=== PATIENT | male | born 1975 | race Caucasian/White ===

== ENCOUNTER 2016-10-14 15:00 | Inpatient (IN) | payer MEDICAID, OTHER ==
[2016-10-14 17:01] LABS: Acetaminophen <10.0 ug/mL; Salicylate <1.0 mg/dL
--- NOTE | 2016-10-14 17:31 | ED ---
General Adult HPI - General Chief complaint: Psychiatric Symptoms Stated complaint: OD & leg cutting/suicidal & homicidal Time Seen by Provider: 10/14/16 15:42 Source: patient, RN notes reviewed, old records reviewed Mode of arrival: ambulatory - History of Present Illness Initial comments: Chief complaint history of present illness a 41-year-old male to complaint of depression. Patient reports he took 610 mg tablets this morning of Valium. He states his plan was to kill himself. Patient is asking for more medication for his discomfort. He has chronic back pain. - Related Data Home Medications Medication Instructions Recorded Confirmed Simvastatin [Zocor] 40 mg PO HS 11/01/14 10/14/16 levETIRAcetam 1,000 mg PO BID 04/12/16 10/14/16 Diazepam 10 mg PO Q12H 07/29/16 10/14/16 Acetaminophen-Codeine 300-30mg 1 tab PO Q6H PRN 10/14/16 10/14/16 [Tylenol #3] Amitriptyline HCl 10 mg PO HS 10/14/16 10/14/16 Asenapine Maleate [Saphris] 10 mg SUBLINGUAL HS 10/14/16 10/14/16 Aspirin [Adult Low Dose Aspirin EC] 81 mg PO DAILY 10/14/16 10/14/16 Divalproex ER [Depakote ER] 1,000 mg PO HS 10/14/16 10/14/16 Methocarbamol [Robaxin] 500 mg PO TID 10/14/16 10/14/16 Mirtazapine 30 mg PO HS 10/14/16 10/14/16 OXcarbazepine [Trileptal] 300 mg PO BID 10/14/16 10/14/16 Previous Rx's Medication Instructions Recorded DULoxetine HCL [Cymbalta] 60 mg PO DAILY #30 capsule. 08/05/16 Allergies Allergy/AdvReac Type Severity Reaction Status Date / Time quetiapine [From Seroquel] AdvReac Unknown Verified 07/30/16 11:07 Review of Systems ROS Statement: Those systems with pertinent positive or pertinent negative responses have been documented in the HPI. Review of systems. The patient otherwise alert and oriented. States she is depressed and suicidal once to kill himself. Denies any headache or chest pain chronic back pain no GI/ problems no neuro deficits. Patient has a history of depression and suicide. Last on the psych floor one month ago. Denying drug abuse or alcohol problems. Past medical problems significant for GERD, hyperlipidemia, seizure disorder and chronic back pain. Surgeries include hernia repair and cervical fusion. And to hernias. Patient family history significant for father had liver cancer. The patient has ALLERGIES to Seroquel. The patient does smoke strongly encouraged to stop denies alcohol use. States he is trying to obtain SSI because of depression and chronic back pain ROS Other: All systems not noted in ROS Statement are negative. Past Medical History Past Medical History: GERD/Reflux, Hyperlipidemia, Seizure Disorder Additional Past Medical History / Comment(s): chronic back pain, herniated disc , kidney stone History of Any Multi-Drug Resistant Organisms: None Reported Past Surgical History: Hernia Repair, Orthopedic Surgery Additional Past Surgical History / Comment(s): cervical fusion ACDF 2009,carpel tunnel, lt knee arthroscopic surgery, polyp removal, hemorrhage surgery hemorrhoid surgery, rectal warts, sinus surgery Past Anesthesia/Blood Transfusion Reactions: No Reported Reaction Past Psychological History: Anxiety, Depression Smoking Status: Current every day smoker Past Alcohol Use History: None Reported Additional Past Alcohol Use History / Comment(s): Patient smokes 2-1/2 packs of cigarettes per day 30 years. He states he also uses marijuana. No other street drug use. He denies any alcohol use. He lives at home with his girlfriend. He has 2 children that are healthy. Past Drug Use History: Marijuana - Past Family History Mother Family Medical History: Hyperlipidemia, Hypertension, Osteoarthritis (OA) Additional Family Medical History / Comment(s): Mom is alive at 70 years of age Father Family Medical History: Cancer, Liver Disease Additional Family Medical History / Comment(s): Dad at age 60 from liver cancer, hepatitis C, cirrhosis. Sister(s) Family Medical History: No Reported History Daughter(s) Family Medical History: No Reported History Son(s) Family Medical History: No Reported History Additional Family Medical History / Comment(s): Patient states he has 4 sisters that are healthy. General Exam - General Exam Comments Initial Comments: General: The patient is awake and alert, anxious and yells out. But calms down while I interviewed. States he is suicidal, depressed. Does not give any specific reason why today and not yesterday. Vital signs show temperature 97.3 pulse 71 respiratory rate 16 pulse ox 90% room air blood pressure 110/74. Eye: Pupils are equal, round and reactive to light, extra-ocular movements are intact ; there is normal conjunctiva bilaterally. No signs of icterus. Ears, nose, mouth and throat: There are moist mucous membranes and no oral lesions. Neck: The neck is supple, there is no tenderness . Cardiovascular: There is a regular rate and rhythm. No murmur, rub or gallop is appreciated. Respiratory: Lungs are clear to auscultation, respirations are non-labored, breath sounds are equal. No wheezes, stridor, rales, or rhonchi. Gastrointestinal: Denies abdominal pain. Denies nausea vomiting or diarrhea. Back: Chronic back pain Musculoskeletal: Full range of motion upper and lower extremities does not complaining of any pain.. Neurological: Not complaining of any neuro deficits. Skin: Denies any skin rashes or skin elements. Psychiatric: History depression, suicidal, took 610 mg tablets of Valium earlier today. Course Vital Signs 10/14/16 10/14/16 15:01 15:50 Temperature 97.3 F L Pulse Rate 87 71 Respiratory 18 16 Rate Blood Pressure 129/75 110/74 O2 Sat by Pulse 100 98 Oximetry Medical Decision Making - Medical Decision Making The patient's Depakene levels therapeutic for seizure but for him as being used for mood stabilizer. Also Tylenol and aspirin negative. The patient's urine triage positive for opiates, tricyclics, benzos and marijuana. The patient will be admitted to 3 W. diagnosis of major depression recurrent suicidal - Lab Data Lab Results 10/14/16 10/14/16 Range/Units 16:42 17:50 Salicylates <1.0 mg/dL Urine Opiates Screen Detected H (NotDetected) Ur Oxycodone Screen Not Detected (NotDetected) Urine Methadone Screen Not Detected (NotDetected) Ur Propoxyphene Screen Not Detected (NotDetected) Acetaminophen <10.0 ug/mL Ur Barbiturates Screen Not Detected (NotDetected) Valproic Acid 63.7 ug/mL U Tricyclic Antidepress Detected H (NotDetected) Ur Phencyclidine Scrn Not Detected (NotDetected) Ur Amphetamines Screen Not Detected (NotDetected) U Methamphetamines Scrn Not Detected (NotDetected) U Benzodiazepines Scrn Detected H (NotDetected) Urine Cocaine Screen Not Detected (NotDetected) U Marijuana (THC) Screen Detected H (NotDetected) Disposition Clinical Impression: Major depression, recurrent, Suicidal ideations Disposition: TRANSFER TO PSYCH HOSP/UNIT
[2016-10-14] MEDS ORDERED: MAGNESIUM HYDROXIDE 2,400 MG/10 ML CUP PO PRN (19:04)
[2016-10-14] MEDS ORDERED: ACETAMINOPHEN TAB 325 MG TAB PO PRN (19:04)
[2016-10-14] MEDS ORDERED: MAG HYDROX/AL HYDROX/SIMETH 30 ML CUP PO PRN (19:04)
[2016-10-14] MEDS ORDERED: ZIPRASIDONE 20 MG VIAL IM PRN (19:04)
[2016-10-14] MEDS: OXcarbazepine 150 MG TAB PO SCH (20:18)
[2016-10-14] MEDS: DIVALPROEX ER 500 MG TAB.ER.24H PO SCH (20:18)
[2016-10-14] MEDS: ATORVASTATIN 20 MG TAB PO SCH (20:19)
[2016-10-14] MEDS: AMITRIPTYLINE HCL 10 MG TAB PO SCH (20:19)
[2016-10-14] MEDS: levETIRAcetam 500 MG TAB PO SCH (20:19)
[2016-10-14] MEDS: METHOCARBAMOL 500 MG TAB PO SCH (20:19)
[2016-10-14] MEDS ORDERED: ASENAPINE 5 MG TAB SUBLINGUAL SCH (21:00)
[2016-10-14] MEDS ORDERED: MIRTAZAPINE 15 MG TAB PO SCH (21:00)
[2016-10-15] MEDS: ASPIRIN 81 MG CHEW PO SCH (08:47)
[2016-10-15] MEDS: DULoxetine HCL 60 MG CAPSULE.DR PO SCH (08:47)
[2016-10-15] MEDS: levETIRAcetam 500 MG TAB PO SCH ×2 (08:47→20:45)
[2016-10-15] MEDS: OXcarbazepine 150 MG TAB PO SCH ×2 (08:47→20:45)
[2016-10-15] MEDS: METHOCARBAMOL 500 MG TAB PO SCH ×3 (08:47→20:46)
[2016-10-15 09:29] LABS: Basophils % (A) 1 %; CH 32.6; CHCM 33.8; Eosinophils # (A) 0.4 k/uL (0-0.7); Eosinophils % (A) 8 %; HCT 52.1 % (39.0-53.0); HDW 2.42; HGB 17.3 gm/dL (13.0-17.5); Luc # (Auto) 0.09; Luc % (Auto) 2; Lymphocytes # (A) 1.7 k/uL (1.0-4.8); Lymphocytes % (A) 39 %; MCH 32.1 pg (25.0-35.0); MCHC 33.2 g/dL (31.0-37.0); MCV 96.6 fL (80.0-100.0); Mean Platelet Volume 7.9; Monocytes # (A) 0.2 k/uL (0-1.0); Monocytes % (A) 5 %; Neutrophils % (A) 46 %; RDW 12.4 % (11.5-15.5); WBC 4.5 k/uL (3.8-10.6); WBC (Perox) 4.41
[2016-10-15 09:37] LABS: ALT 43 U/L (21-72); AST 19 U/L (17-59); Alkaline Phosphatase 77 U/L (38-126); Anion Gap 9 mmol/L; Blood Urea Nitrogen 13 mg/dL (9-20); Calcium 9.3 mg/dL (8.4-10.2); Carbon Dioxide 31 mmol/L (22-30); Chloride 106 mmol/L (98-107); Glucose 122 mg/dL (74-99); Non-African American GFR(MDRD) >60 (>60 ml/min/1.73 sqM); Potassium 4.5 mmol/L (3.5-5.1); Sodium 146 mmol/L (137-145); Total Bilirubin 0.4 mg/dL (0.2-1.3); Total Protein 6.3 g/dL (6.3-8.2)
[2016-10-15] MEDS ORDERED: Acetaminophen-Codeine 300-30mg TAB PO PRN (10:20)
--- NOTE | 2016-10-15 11:52 | P.CONS ---
History of Present Illness - Reason for Consult Consult date: 10/15/16 Medical management - History of Present Illness This is a 41-year-old gentleman. He is a patient of Dr. Cassie Evans with a past medical history for gastroesophageal reflux disease, hyperlipidemia, chronic back pain with herniated disc, anxiety and depression. Patient follows with [facility]. Patient states that he has had suicidal thoughts and told his son who brought him into [facility] emergency center for treatment. He does state his psychiatric medications were recently changed. He is complaining of chronic back pain and need for Tylenol No. 4. Patient presented to [facility] emergency center with the above complaints. Urine drug screen was positive for opiates, tricyclic antidepressants, benzodiazepines and marijuana Patient was admitted to the mental health unit under the care of Dr. Ware. Review of Systems All systems: negative Constitutional: Reports chronic pain, Denies chills, Denies fever Eyes: denies blurred vision, denies pain Ears, nose, mouth and throat: Denies headache, Denies sore throat Cardiovascular: Denies chest pain, Denies shortness of breath Respiratory: Denies cough Gastrointestinal: Denies abdominal pain, Denies diarrhea, Denies nausea, Denies vomiting Musculoskeletal: Denies myalgias Integumentary: Denies pruritus, Denies rash Neurological: Denies numbness, Denies weakness Psychiatric: Reports depression, Reports hopelessness, Reports suicidal ideation , Denies anxiety Endocrine: Denies fatigue, Denies weight change Past Medical History Past Medical History: GERD/Reflux, Hyperlipidemia, Seizure Disorder Additional Past Medical History / Comment(s): chronic back pain, herniated disc , kidney stone History of Any Multi-Drug Resistant Organisms: None Reported Past Surgical History: Hernia Repair, Orthopedic Surgery Additional Past Surgical History / Comment(s): cervical fusion ACDF 2010,carpel tunnel, lt knee arthroscopic surgery, polyp removal, hemorrhage surgery hemorrhoid surgery, rectal warts, sinus surgery Past Anesthesia/Blood Transfusion Reactions: No Reported Reaction Past Psychological History: Anxiety, Depression Smoking Status: Never smoker Past Alcohol Use History: None Reported Additional Past Alcohol Use History / Comment(s): Patient smokes 2-1/2 packs of cigarettes per day 30 years. He states he also uses marijuana. No other street drug use. He denies any alcohol use. He lives at home with his girlfriend. He has 2 children that are healthy. Past Drug Use History: Marijuana - Past Family History Mother Family Medical History: Hyperlipidemia, Hypertension, Osteoarthritis (OA) Additional Family Medical History / Comment(s): Mom is alive at 70 years of age Father Family Medical History: Cancer, Liver Disease Additional Family Medical History / Comment(s): Dad at age 60 from liver cancer, hepatitis C, cirrhosis. Sister(s) Family Medical History: No Reported History Daughter(s) Family Medical History: No Reported History Son(s) Family Medical History: No Reported History Additional Family Medical History / Comment(s): Patient states he has 4 sisters that are healthy. Medications and Allergies Home Medications Medication Instructions Recorded Confirmed Type Simvastatin [Zocor] 40 mg PO HS 11/01/14 10/14/16 History levETIRAcetam 1,000 mg PO BID 04/12/16 10/14/16 History Diazepam 10 mg PO Q12H 07/29/16 10/14/16 History Acetaminophen-Codeine 300-30mg 1 tab PO Q6H PRN 10/14/16 10/14/16 History [Tylenol #3] Amitriptyline HCl 10 mg PO HS 10/14/16 10/14/16 History Asenapine Maleate [Saphris] 10 mg SUBLINGUAL HS 10/14/16 10/14/16 History Aspirin [Adult Low Dose Aspirin EC] 81 mg PO DAILY 10/14/16 10/14/16 History Divalproex ER [Depakote ER] 1,000 mg PO HS 10/14/16 10/14/16 History Methocarbamol [Robaxin] 500 mg PO TID 10/14/16 10/14/16 History Mirtazapine 30 mg PO HS 10/14/16 10/14/16 History OXcarbazepine [Trileptal] 300 mg PO BID 10/14/16 10/14/16 History Allergies Allergy/AdvReac Type Severity Reaction Status Date / Time quetiapine [From Seroquel] AdvReac Unknown Verified 07/30/16 11:07 Physical Exam Vitals: Vital Signs Temp Pulse Pulse Resp BP BP Pulse Ox 10/15/16 06:48 97.6 F 75 16 105/53 10/14/16 19:11 97.5 F L 84 17 124/76 99 Gen: This is a 41-year-old gentleman. He appears to be in no acute distress. He is cooperative for evaluation. HEENT: Head is atraumatic, normocephalic. Pupils equal, round. Sclerae is anicteric. NECK: Supple. No JVD. No lymphadenopathy. No thyromegaly. LUNGS: Clear to auscultation. No wheezes or rhonchi. No intercostal retractions. HEART: Regular rate and rhythm. No murmur. ABDOMEN: Soft. Bowel sounds are present. No masses. No tenderness. EXTREMITIES: No pedal edema. No calf tenderness. NEUROLOGICAL: Patient is awake, alert and oriented x3. Cranial nerves 2 through 12 are grossly intact. Results CBC & Chem 7: 10/15/16 09:10 10/15/16 09:10 Labs: Abnormal Lab Results - Last 24 Hours (Table) 10/15/16 Range/Units 09:10 Sodium 146 H (137-145) mmol/L Carbon Dioxide 31 H (22-30) mmol/L Glucose 122 H (74-99) mg/dL Assessment and Plan Plan: 1. Depression and anxiety with suicidal thoughts. Patient is been admitted to the mental health unit. Continue current plan of care. 2. History gastroesophageal reflux disease. Omeprazole 20 mg twice daily. 3. Hyperlipidemia. Continue Zocor 40 mg at bedtime. 4. History of chronic back pain. Continue Tylenol No. 3 every 6 hours if okay with psychiatry. 5. Tobacco use and dependence. Continue nicotine patch 21 mg daily. 6. History of marijuana use. Continue as in #1. Impression and plan of care have been directed as dictated by the signing physician. Karla Childs nurse practitioner acting as scribe for signing physician. Time with Patient: Greater than 30
[2016-10-15 12:49] VITALS: BMI 26.2
[2016-10-15] MEDS: NICOTINE 14MG/24HR PATCH TRANSDERM SCH (13:39)
[2016-10-15] MEDS: HYDROcodone/APAP 5-325MG 1 EACH TAB PO PRN (17:13)
[2016-10-15] MEDS: clonazePAM 0.5 MG TAB PO PRN (18:31)
--- NOTE | 2016-10-15 18:41 | P.HP ---
Psychiatric H&P - . H&P Date: 10/15/16 History & Physical: Allergies Allergy/AdvReac Type Severity Reaction Status Date / Time quetiapine [From Seroquel] AdvReac Unknown Verified 07/30/16 11:07 Vital Signs Temp 97.3 F L 10/15/16 12:29 Pulse 79 10/15/16 12:29 Resp 16 10/15/16 12:29 BP 117/76 10/15/16 12:29 Pulse Ox 99 10/14/16 19:11 Intake & Output 10/14/16 10/15/16 10/15/16 18:59 06:59 18:59 Weight 78.4 kg Laboratory Last Values WBC 4.5 k/uL (3.8-10.6) 10/15/16 09:10 RBC 5.40 m/uL (4.30-5.90) 10/15/16 09:10 Hgb 17.3 gm/dL (13.0-17.5) 10/15/16 09:10 Hct 52.1 % (39.0-53.0) 10/15/16 09:10 MCV 96.6 fL (80.0-100.0) 10/15/16 09:10 MCH 32.1 pg (25.0-35.0) 10/15/16 09:10 MCHC 33.2 g/dL (31.0-37.0) 10/15/16 09:10 RDW 12.4 % (11.5-15.5) 10/15/16 09:10 Plt Count 167 k/uL (150-450) 10/15/16 09:10 Neutrophils % 46 % 10/15/16 09:10 Lymphocytes % 39 % 10/15/16 09:10 Monocytes % 5 % 10/15/16 09:10 Eosinophils % 8 % 10/15/16 09:10 Basophils % 1 % 10/15/16 09:10 Neutrophils # 2.0 k/uL (1.3-7.7) 10/15/16 09:10 Lymphocytes # 1.7 k/uL (1.0-4.8) 10/15/16 09:10 Monocytes # 0.2 k/uL (0-1.0) 10/15/16 09:10 Eosinophils # 0.4 k/uL (0-0.7) 10/15/16 09:10 Basophils # 0.0 k/uL (0-0.2) 10/15/16 09:10 Sodium 146 mmol/L (137-145) H 10/15/16 09:10 Potassium 4.5 mmol/L (3.5-5.1) 10/15/16 09:10 Chloride 106 mmol/L (98-107) 10/15/16 09:10 Carbon Dioxide 31 mmol/L (22-30) H 10/15/16 09:10 Anion Gap 9 mmol/L 10/15/16 09:10 BUN 13 mg/dL (9-20) 10/15/16 09:10 Creatinine 1.10 mg/dL (0.66-1.25) 10/15/16 09:10 Est GFR (MDRD) Af Amer >60 (>60 ml/min/1.73 sqM) 10/15/16 09:10 Est GFR (MDRD) Non-Af >60 (>60 ml/min/1.73 sqM) 10/15/16 09:10 Glucose 122 mg/dL (74-99) H 10/15/16 09:10 Calcium 9.3 mg/dL (8.4-10.2) 10/15/16 09:10 Total Bilirubin 0.4 mg/dL (0.2-1.3) 10/15/16 09:10 AST 19 U/L (17-59) 10/15/16 09:10 ALT 43 U/L (21-72) 10/15/16 09:10 Alkaline Phosphatase 77 U/L (38-126) 10/15/16 09:10 Total Protein 6.3 g/dL (6.3-8.2) 10/15/16 09:10 Albumin 3.9 g/dL (3.5-5.0) 10/15/16 09:10 TSH 1.590 mIU/L (0.465-4.680) 10/15/16 09:10 Salicylates <1.0 mg/dL 10/14/16 16:42 Urine Opiates Screen Detected (NotDetected) H 10/14/16 17:50 Ur Oxycodone Screen Not Detected (NotDetected) 10/14/16 17:50 Urine Methadone Screen Not Detected (NotDetected) 10/14/16 17:50 Ur Propoxyphene Screen Not Detected (NotDetected) 10/14/16 17:50 Acetaminophen <10.0 ug/mL 10/14/16 16:42 Ur Barbiturates Screen Not Detected (NotDetected) 10/14/16 17:50 Valproic Acid 52.7 ug/mL 10/15/16 09:10 U Tricyclic Antidepress Detected (NotDetected) H 10/14/16 17:50 Ur Phencyclidine Scrn Not Detected (NotDetected) 10/14/16 17:50 Ur Amphetamines Screen Not Detected (NotDetected) 10/14/16 17:50 U Methamphetamines Scrn Not Detected (NotDetected) 10/14/16 17:50 U Benzodiazepines Scrn Detected (NotDetected) H 10/14/16 17:50 Urine Cocaine Screen Not Detected (NotDetected) 10/14/16 17:50 U Marijuana (THC) Screen Detected (NotDetected) H 10/14/16 17:50 10/15/16 18:30 IDENTIFYING DATA: A 41-year-old single male patient HPI: Patient admitted to the mental health unit [facility] with recent concerns of depression and overdose of medication. Patient reports that he had not been sleeping well. took 6 Valium all at once yesterday was not a suicide attempt but he just hadn't been sleeping. He denies any oversedation from the Valium today he seems to deny any significant depression recently and denies any recent thoughts of suicide. He does state that with the lack of sleep he started having some visual hallucinations like seeing shadows. PAST PSYCHIATRIC HISTORY: Is in active treatment at [facility], sees Rachel at therapist and sees a psychiatrist through [facility]. He has most recently been on Cymbalta 60 mg daily Depakote ER thousand monitor bedtime, Saphris she says is not working, he states that he is no longer on Remeron or Seroquel. He says the Seroquel was discontinued after he had a TIA related to they wanted to minimize any sedating medication, then later he was changed to Saphris. He is being prescribed Valium by his primary care doctor for anxiety on muscle relaxation. He has been on Klonopin in the past which worked better for the anxiety. He has no history of abusing the Klonopin. Says he been diagnosed with major depressive disorder and anxiety disorder. He does not seem to relay having had any significant side effects on the Seroquel. he reports that Seroquel is listed as an ALLERGY because he had a seizure on it, he was not on his antiepileptic medications and was not even aware that he had epilepsy at the time. PMH: Cervical fusion in 2009. History of seizure disorder. History of TIA. ALLERGIES: Quetiapine MEDICATIONS: Tylenol when necessary, [place] when necessary, Maalox when necessary , Elavil, aspirin, Lipitor, Depakote ER, Cymbalta, Keppra, milk of magnesia when necessary, Biaxin, Habitrol, Trileptal, Protonix when necessary, Geodon when necessary CHEMICAL DEPENDENCY HISTORY: Marijuana occasionally FAMILY PSYCHIATRIC HISTORY: Denies FAMILY CHEMICAL DEPENDENCY HISTORY: None known at this time SOCIAL HISTORY: He currently lives with his son, stepdaughter, ex-girlfriend who he is still friends with. No current work, he has applied for disability. MENTAL STATUS EXAM: He is alert and cooperative with the interview. His speech is fluent, not rapid or pressured. Thought processes organized. He denies any current thoughts of harm to self or others. He denies any current hallucinations. He describes his mood as "pretty good." Does not show any agitation. Cognitively appears to be grossly intact. Insight is adequate, judgment shows evidence of recent impairment. STRENGTHS/WEAKNESSES: Strengths-seeking treatment, weaknesses-coping skills INTELLECTUAL FUNCTIONING: average IMPRESSIONS: AXIS I : Major depressive disorder, recurrent ,unspecified anxiety disorder AXIS II: Deferred AXIS III: cervical fusion 2010, TIA, history of seizure disorder AXIS IV: medical stressors AXIS V: 30 PLAN: patient is admitted to inpatient psychiatric unit [facility]. He will be participate in group and activity therapies. He will be placed on SP 15 minute precautions. Baseline laboratory workup done the patient and medical consultation will be ordered. We'll discontinue Saphris as he reports no benefit with and we will trial Zyprexa 2.5 motives at bedtime to see if this can help augment regarding mood as well as helping him with his difficulty with sleep. We'll maintain Cymbalta, Depakote ER as current we will trial Klonopin instead of Valium in terms of as needed for any significant anxiety. We'll continue to cover this patient for Dr. Ware through the weekend we'll any family supports. Estimated length of stay is 3-5 days. Prognosis is guarded.
[2016-10-15] MEDS: DIVALPROEX ER 500 MG TAB.ER.24H PO SCH (20:40)
[2016-10-15] MEDS: ATORVASTATIN 20 MG TAB PO SCH (20:46)
[2016-10-15] MEDS: AMITRIPTYLINE HCL 10 MG TAB PO SCH (20:46)
[2016-10-15] MEDS ORDERED: QUEtiapine 100 MG TAB PO SCH (21:00)
[2016-10-15] MEDS ORDERED: OLANZapine 2.5 MG TAB PO SCH (21:00)
[2016-10-16] MEDS: ASPIRIN 81 MG CHEW PO SCH (08:51)
[2016-10-16] MEDS: levETIRAcetam 500 MG TAB PO SCH ×2 (08:52→20:06)
[2016-10-16] MEDS: OXcarbazepine 150 MG TAB PO SCH ×2 (08:52→20:07)
[2016-10-16] MEDS: DULoxetine HCL 60 MG CAPSULE.DR PO SCH (08:52)
[2016-10-16] MEDS: METHOCARBAMOL 500 MG TAB PO SCH ×3 (08:52→20:05)
[2016-10-16] MEDS: PANTOPRAZOLE 40 MG TABLET PO PRN (08:53)
[2016-10-16] MEDS: NICOTINE 14MG/24HR PATCH TRANSDERM SCH (08:53)
[2016-10-16] MEDS: HYDROcodone/APAP 5-325MG 1 EACH TAB PO PRN ×2 (08:55→16:37)
[2016-10-16] MEDS: clonazePAM 0.5 MG TAB PO PRN ×2 (08:55→18:41)
--- NOTE | 2016-10-16 17:40 | P.PN ---
Progress Note - Text Interval history: Patient is seen in cross coverage today for Dr. Ware. He reports that he slept about 6 hours last night, relays that his sleep was broken. He does not voice any side effects with Zyprexa which has been initiated. He does state that the Klonopin gives him some benefit, inquires regarding increase. He is eating well. Mental status exam: He is alert and cooperative with the interview. His speech is fluent, not rapid or pressured. His affect does show range. His mood seems to be improved today. He denies any thoughts of harm to self or others. He does not show any active evidence of psychosis. Plan: We'll titrate Zyprexa to 5 mg at bedtime to help further with mood augmentation as well as coping with sleep and may get benefits for severe anxiety. We will maintain other current psychotropic medications. We'll maintain Klonopin as ordered at this time. Dr. Ware to initiate care this patient starting tomorrow.
[2016-10-16] MEDS: ATORVASTATIN 20 MG TAB PO SCH (20:05)
[2016-10-16] MEDS: AMITRIPTYLINE HCL 10 MG TAB PO SCH (20:05)
[2016-10-16] MEDS: DIVALPROEX ER 500 MG TAB.ER.24H PO SCH (20:06)
[2016-10-16] MEDS ORDERED: OLANZapine 5 MG TAB PO SCH (21:00)
[2016-10-17] MEDS: HYDROcodone/APAP 5-325MG 1 EACH TAB PO PRN ×3 (01:14→16:35)
[2016-10-17] MEDS: PANTOPRAZOLE 40 MG TABLET PO PRN (09:23)
[2016-10-17] MEDS: DULoxetine HCL 60 MG CAPSULE.DR PO SCH (09:23)
[2016-10-17] MEDS: clonazePAM 0.5 MG TAB PO PRN ×2 (09:23→20:41)
[2016-10-17] MEDS: METHOCARBAMOL 500 MG TAB PO SCH ×3 (09:23→20:40)
[2016-10-17] MEDS: ASPIRIN 81 MG CHEW PO SCH (09:23)
[2016-10-17] MEDS: NICOTINE 14MG/24HR PATCH TRANSDERM SCH (09:23)
[2016-10-17] MEDS: OXcarbazepine 150 MG TAB PO SCH (09:25)
[2016-10-17] MEDS: levETIRAcetam 500 MG TAB PO SCH ×2 (10:11→20:39)
--- NOTE | 2016-10-17 13:45 | P.PN ---
Progress Note - Text CLINICAL PROBLEMS: He presented to unit with complaints of suicidal ideation, nonlethal self-harm (cutting his thigh), depression and insomnia. We reviewed his history. He has no income and is currently living with his ex-girlfriend their 2 children and her ex girlfriend's boyfriend. She took him in because he was living in a homeless alf. 24 HOUR EVENTS: He is intermittently attending therapeutic activities. He is posed no management problem problem and has displayed no self-harm behaviors or behavioral dyscontrol. EXAMINATION: He presented as a casually groomed 41-year-old male with dark thinning hair. He maintained eye contact and attended to the interview. He had no distinction features are prominent physical abnormalities. He had a depressed facial expression. He was alert and oriented to person, place and time. He showed psychomotor retardation but no abnormal involuntary movements. He had a slow but steady gait. His speech was spontaneous with decreased rate, rhythm and volume. He had no articulation difficulties. His affect was depressed and not reactive. He denied suicidal ideation but described wishes. He denied homicidal ideation. He described depressive cognitions including hopelessness, helplessness and worthlessness. He denied obsessions or ruminations. He denied ideas of reference. He did not express paranoid ideation. His thinking was abstract and associations were coherent and logical. He did not demonstrate clang associations, perseveration, neologisms or blocking. He denied hallucinations and did not appear to be responding to internal stimuli. PERTINENT DATA: We reviewed his medication list from [facility]. He last met with his outpatient provider on 10/11/2016. At the conclusion of that meeting his provider increase Depakote ER to 1000 mg at bedtime, started Saphris 10 mg at bedtime, and continued Cymbalta. According to the medication history sheet his provider discontinued amitriptyline 10 mg at bedtime on 10/11/2016 and Trileptal on 09/21/2016. His provider also discontinued quetiapine 100 mg at bedtime on 09/19/2016. He completed the Sanchez Depression Inventory. His total score was 25 consistent with moderate symptoms of depression. His score on the "suicidal thoughts or wishes" question was "1-I have thoughts of killing myself, but I would not carry them out." ASSESSMENT: He continues to described depressive symptoms and suicidal thoughts without intent or plan. There is no evidence of psychotic symptoms. We reconciled his medications consistent with his last contact with his provider. PLAN: Discontinue amitriptyline 10 mg at bedtime, olanzapine 10 mg at bedtime and Trileptal 3 mg twice a day. Begin a trial of Seroquel 150 mg at bedtime for sleep and mood augmentation. Continue Depakote ER 1000 mg at bedtime and Cymbalta 60 mg daily. Value a clinical status and response to treatment on a daily basis. Encourage full participation in therapeutic groups and activities. Continue 15 minute checks with suicide precautions.
[2016-10-17] MEDS: QUEtiapine 50 MG TAB PO SCH (20:39)
[2016-10-17] MEDS: ATORVASTATIN 20 MG TAB PO SCH (20:39)
[2016-10-17] MEDS: DIVALPROEX ER 500 MG TAB.ER.24H PO SCH (20:39)
[2016-10-18] MEDS: HYDROcodone/APAP 5-325MG 1 EACH TAB PO PRN ×3 (06:48→20:53)
[2016-10-18] MEDS: clonazePAM 0.5 MG TAB PO PRN ×2 (08:24→20:26)
[2016-10-18] MEDS: levETIRAcetam 500 MG TAB PO SCH ×2 (08:24→20:24)
[2016-10-18] MEDS: DULoxetine HCL 60 MG CAPSULE.DR PO SCH (08:25)
[2016-10-18] MEDS: METHOCARBAMOL 500 MG TAB PO SCH ×3 (08:25→20:24)
[2016-10-18] MEDS: ASPIRIN 81 MG CHEW PO SCH (08:25)
[2016-10-18] MEDS: NICOTINE 14MG/24HR PATCH TRANSDERM SCH (08:27)
[2016-10-18] MEDS: DIVALPROEX ER 500 MG TAB.ER.24H PO SCH ×2 (09:58→20:24)
[2016-10-18] MEDS: LIDOCAINE 5% PATCH TOPICAL SCH (10:06)
[2016-10-18] MEDS: CLOTRIMAZOLE 1% CREAM 15 GM TUBE TOPICAL SCH ×2 (10:06→20:52)
[2016-10-18] MEDS ORDERED: WATER FOR INJECTION, STERILE 10 ML IV ONE (14:03)
[2016-10-18] MEDS: QUEtiapine 50 MG TAB PO SCH (20:24)
[2016-10-18] MEDS: ATORVASTATIN 20 MG TAB PO SCH (20:24)
[2016-10-19] MEDS: METHOCARBAMOL 500 MG TAB PO SCH ×3 (08:08→20:21)
[2016-10-19] MEDS: levETIRAcetam 500 MG TAB PO SCH ×2 (08:08→20:21)
[2016-10-19] MEDS: ASPIRIN 81 MG CHEW PO SCH (08:08)
[2016-10-19] MEDS: LIDOCAINE 5% PATCH TOPICAL SCH (08:09)
[2016-10-19] MEDS: DIVALPROEX ER 500 MG TAB.ER.24H PO SCH ×2 (08:10→20:21)
[2016-10-19] MEDS: CLOTRIMAZOLE 1% CREAM 15 GM TUBE TOPICAL SCH ×2 (08:11→17:44)
[2016-10-19] MEDS: HYDROcodone/APAP 5-325MG 1 EACH TAB PO PRN ×2 (08:14→15:52)
[2016-10-19] MEDS: DULoxetine HCL 60 MG CAPSULE.DR PO SCH (08:14)
[2016-10-19] MEDS: NICOTINE 14MG/24HR PATCH TRANSDERM SCH (08:19)
[2016-10-19] MEDS: clonazePAM 0.5 MG TAB PO PRN ×2 (09:31→17:41)
[2016-10-19] MEDS ORDERED: DULoxetine HCL 30 MG CAPSULE.DR PO ONE (12:15)
--- NOTE | 2016-10-19 12:20 | P.PN ---
Progress Note - Text CLINICAL PROBLEMS: He complains of continued feelings depression and requested a modification his medications. Specifically, he requested an increase in Depakote. He complained that he is continuing to have "mood swings". As an example of mood swings he talked about a conversation with his ex-girlfriend where she threatened not to allow him to see their son. He also complained of continued back pain and requested a lidocaine patch (instead of the change in the opiate pain medication). He stated he spoke with the social human services assistants about entering the [employer] to "get off" or opiate pain medications. He has been taking pain medications since 1999 and they are not as effective as they were homeless he takes higher doses. He also complained of absence feet and requested a prescription for Lotrimin cream. I examined his feet. 24 HOUR EVENTS: He slept 7 hours last night. He did not receive when necessary medication for complaints of anxiety or pain. EXAMINATION: He presented as a casually groomed middle-aged male who had a depressive affect and psychomotor slowing. His speech was spontaneous but slow and blunted rhythm. His affect was depressed and not reactive. He described thoughts of suicide and wishes but denied a specific plan or intent. She remains concerned that if he were discharged "too soon" that he would begin thinking of suicide and possibly make an attempt. He has no ideas of reference and did not express paranoid ideation. His thinking is concrete but his associations are coherent. He denied hallucinations and did not appear to be responding to internal stimuli. He had scaling, moist and peeling skin between the toes. PERTINENT DATA: He has been compliant with prescribed medication and is posed no management problem. He has no episodes of behavioral dyscontrol ASSESSMENT: He continues to appear depressed and described thoughts of and suicide. PLAN: Increase Depakote to 1500 mg at bedtime, lidocaine patch twice a day for low back pain, Lotrimin cream twice a day to feet, social work assist with referral to a substance abuse treatment program, encourage participation in therapeutic groups and activities, evaluate clinical status and response to treatment on a daily basis.
--- NOTE | 2016-10-19 15:40 | P.PN ---
Progress Note - Text CLINICAL PROBLEMS: He is a 41-year-old homeless man who has a history of a mood disorder. He presented to unit with complaints depression and suicidal ideation. He complained of continued feelings of depression and anxiety. He was medication focused and requested changes in medications. I agreed to modify the dose of duloxetine and Seroquel. He complained of increasing anxiety yesterday after he learned that he was denied admission to [place]. He has an intake appointment scheduled with [facility] for substance abuse treatment on 10/24/2016. He became increasingly anxious when he talked about discharge. He alleges that he cannot return to a fpc and has no friends or family with whom he may live. 24 HOUR EVENTS: He received 20 mg of Geodon IM yesterday and 1414 for increasing agitation EXAMINATION: He presented as a casually groomed middle-aged male who was pleasant on approach. He paid maintained eye contact and attended to the interview. He had a depressed facial expression. He was alert and oriented to person, place and time. He showed psychomotor retardation but no abnormal involuntary movements. His speech was spontaneous with decreased rate, rhythm and volume. His affect was depressed and not reactive. He described continued thoughts of suicide and wishes. He had depressive cognitions including hopelessness, helplessness and worthlessness. He denied ideas of reference and didn't express paranoid ideation. His thinking was concrete but his associations were coherent and logical. He denied hallucinations and did not appear to be responding to internal stimuli. PERTINENT DATA: He denied side effects to the increased dose of Depakote. ASSESSMENT: He continues to appear depressed and expresses feelings of hopelessness,, helplessness and worthlessness. He described continued suicidal ideation and wishes. There is no evidence of psychotic symptoms at this time. PLAN: Increase duloxetine to 90 mg daily and Seroquel to 200 mg at bedtime. Continue Depakote 1500 mg at bedtime and obtain a serum valproic acid level in 2 -3 days. Continue Narco 5-325 3 times a day when necessary for pain and decrease clonazepam to 0.25 mg by mouth twice a day when necessary for pain. Social work to explore whether we can move up to date for the intake at [facility]. We may have to discharge him to a fpc before he committed to a substance abuse treatment program.
[2016-10-19] MEDS: QUEtiapine 200 MG TAB PO SCH (20:21)
[2016-10-19] MEDS: ATORVASTATIN 20 MG TAB PO SCH (20:21)
[2016-10-20] MEDS: HYDROcodone/APAP 5-325MG 1 EACH TAB PO PRN ×3 (00:21→16:29)
[2016-10-20] MEDS: LIDOCAINE 5% PATCH TOPICAL SCH (07:50)
[2016-10-20] MEDS: CLOTRIMAZOLE 1% CREAM 15 GM TUBE TOPICAL SCH ×2 (07:53→20:13)
[2016-10-20] MEDS: METHOCARBAMOL 500 MG TAB PO SCH ×3 (08:56→20:00)
[2016-10-20] MEDS: ASPIRIN 81 MG CHEW PO SCH (08:56)
[2016-10-20] MEDS: levETIRAcetam 500 MG TAB PO SCH ×2 (08:57→19:59)
[2016-10-20] MEDS: DIVALPROEX ER 500 MG TAB.ER.24H PO SCH ×2 (08:57→19:59)
[2016-10-20] MEDS ORDERED: DULoxetine HCL 30 MG CAPSULE.DR PO SCH (09:00)
[2016-10-20] MEDS: clonazePAM 0.5 MG TAB PO PRN (09:00)
[2016-10-20] MEDS: NICOTINE 14MG/24HR PATCH TRANSDERM SCH (10:05)
[2016-10-20] MEDS: LIDOCAINE 2% GEL 30 ML TUBE TOPICAL SCH ×2 (13:46→20:13)
--- NOTE | 2016-10-20 16:32 | P.PN ---
Progress Note - Text CLINICAL PROBLEMS: He is a 41-year-old homeless man who presented to the psychiatric unit with complaints of depression and suicidal ideation. He was upbeat that he had been accepted to a substance abuse rehabilitation program. We explained that he will not be able to remained in hospital until the date of his admission (10/26/2016). We discussed residential options and believes that his ex-girlfriend would allow him to live with her temporarily until the admission date. He complained about the lidocaine patch and requested a prescription for lidocaine gel instead. 24 HOUR EVENTS: He has been compliant with prescribed medications and participates in therapeutic groups and activities. He is not shown no self- harm behaviors or behavioral dyscontrol. EXAMINATION: He presented as a casually groomed middle-aged male who was pleasant on approach. He maintained eye contact and attended to the interview. He had a depressed facial expression. He is alert and oriented to person, place and time. He showed slight psychomotor retardation but no abnormal involuntary movements. His speech was spontaneous with decreased rate , rhythm and volume. He had no articulation difficulties. He denied suicidal ideation or wishes. He denied homicidal ideation. He expressed depressive cognitions including hopelessness and worthlessness. He denied ideas of reference and did not express paranoid ideation. His thinking was abstract and associations were coherent and logical. He denied hallucinations and did not appear to be responding to internal stimuli. PERTINENT DATA: He slept 5 hours last night. He continues to request when necessary Narco for back pain. He understands that he will not be prescribed Narco at discharge and will not be allowed Narco at the substance abuse treatment program. ASSESSMENT: He has improved from admission but continues to show some symptoms of depression. He is denying suicidal ideation, plan or intent. There is no evidence of psychotic symptoms. He remains committed to receiving substance abuse treatment. The problem with housing is temporarily result. He does not have an income and is relying on receiving at some point social security disability PLAN: Continue clonazepam 25 mg by mouth twice a day when necessary for anxiety , Depakote 1500 mg at bedtime, and Keppra 1000 mg by mouth twice a day. Change lidocaine patch to 2% lidocaine gel twice a day, split dosing of Cymbalta 60 mg a.m. and 30 mg after lunch. He will talk to his neurologist about tapering Keppra but continuing Depakote for the treatment of his seizure disorder and mood symptoms. He has an appointment for admission to [facility] substance abuse treatment program on 10/26/2016. Discharge 10/21/2016
[2016-10-20] MEDS: QUEtiapine 200 MG TAB PO SCH (20:00)
[2016-10-20] MEDS: ATORVASTATIN 20 MG TAB PO SCH (20:00)
[2016-10-20] MEDS ORDERED: LIDOCAINE 2% GEL 30 ML TUBE TOPICAL SCH (21:00)
[2016-10-21] MEDS: HYDROcodone/APAP 5-325MG 1 EACH TAB PO PRN (04:35)
[2016-10-21] MEDS: CLOTRIMAZOLE 1% CREAM 15 GM TUBE TOPICAL SCH (06:46)
[2016-10-21 07:02] VITALS: BP 99/65; PULSE 87; RESP 16; TEMP 98
[2016-10-21] MEDS: levETIRAcetam 500 MG TAB PO SCH (08:46)
[2016-10-21] MEDS: DIVALPROEX ER 500 MG TAB.ER.24H PO SCH (08:46)
[2016-10-21] MEDS: ASPIRIN 81 MG CHEW PO SCH (08:46)
[2016-10-21] MEDS: METHOCARBAMOL 500 MG TAB PO SCH (08:47)
[2016-10-21] MEDS: LIDOCAINE 2% GEL 30 ML TUBE TOPICAL SCH (08:47)
[2016-10-21] MEDS: clonazePAM 0.5 MG TAB PO PRN (08:48)
[2016-10-21] MEDS ORDERED: DULoxetine HCL 30 MG CAPSULE.DR PO SCH (09:00)
[2016-10-21] MEDS ORDERED: DULoxetine HCL 60 MG CAPSULE.DR PO SCH (13:30)
--- NOTE | 2016-10-21 14:37 | P.DS ---
Providers Date of admission: 10/14/16 18:38 Attending physician: Natanael Faye MD Consults: 10/14/16 19:04 Consult Physician Routine Consulting Provider: Noa Ram Consult Reason/Comments: follow up H & P Do you want consulting provider notified?: Yes Primary care physician: Cassie Evans - Discharge Diagnosis(es) (1) Chronic low back pain Current Visit: Yes Status: Chronic Priority: Low (2) Income insufficient to meet needs Current Visit: Yes Status: Chronic Priority: High (3) Inadequate housing Current Visit: Yes Status: Chronic Priority: High (4) Major depression, recurrent Current Visit: Yes Status: Chronic Priority: Medium (5) Suicidal ideations Current Visit: Yes Status: Acute Priority: Low Hospital Course: He is a 41-year-old male admitted voluntarily to the psychiatric unit with complaints of increasing depression, suicidal ideation, nonlethal self- harm (cutting his thigh) and insomnia. He has no income and no stable housing. Prior to admission he lived temporarily with his ex-girlfriend, and her 2 children and her current boyfriend. Our impression is that he presented in part because she asked him to leave her house. We admitted him to the psychiatric unit initially under care of Dr. West. We provided a biopsychosocial assessment. The executive search consultant hoof trimmer complete a physical exam and medical history. The hoof trimmer diagnosis GERD, hyperlipidemia , chronic back pain, tobacco use and dependence and history of marijuana use. Recommendations include omeprazole 20 mg twice daily, Zocor 40 mg at bedtime, [place] when necessary for pain and teen patch. We continue outpatient medications including Keppra 1000 mg twice a day (for the treatment of seizures) , clonazepam 0.25 mg twice a day when necessary for anxiety, Seroquel 200 mg at bedtime, Robaxin 500 mg by mouth 3 times a day, Depakote 1000 mg at bedtime and duloxetine 60 mg per day. We increased the dose of duloxetine to 90 mg and Depakote to 1500 mg per day. He inquired about residential substance abuse treatment stating that he "wished to get off pain pills." He contacted and was accepted to [facility] substance abuse treatment on 10/26/2016. He participated in therapeutic groups and activities. His mood improved and he became less hopeless and helpless. At the time of discharge he had a bright affect and denied thoughts of or suicide. His ex-girlfriend agreed to let him stay at her home until his admission date 4 residential substance abuse treatment. We arrange for aftercare through [facility]. His applications for SSD is pending. We did not discharge him with prescriptions for the benzodiazepine or the opioid pain medication. Patient Condition at Discharge: Good Plan - Discharge Summary New Discharge Prescriptions: Aspirin [Adult Low Dose Aspirin EC] 81 mg PO DAILY 30 Days Clotrimazole Cream [Lotrimin Cream] 1 applic TOPICAL BID 30 Days DULoxetine HCL [Cymbalta] 30 mg PO DAILY 30 Days DULoxetine HCL [Cymbalta] 60 mg PO PC-LUNCH 30 Days Divalproex ER [Depakote ER] 500 mg PO DAILY 30 Days Divalproex ER [Depakote ER] 1,000 mg PO HS 30 Days Lidocaine 2% Gel [Xylocaine Jelly 2%] 1 applic TOPICAL BID 30 Days Methocarbamol [Robaxin] 500 mg PO TID 30 Days QUEtiapine [SEROquel] 200 mg PO HS 30 Days Simvastatin [Zocor] 40 mg PO HS 30 Days clonazePAM [KlonoPIN] 0.25 mg PO BID PRN 7 Days PRN Reason: Anxiety levETIRAcetam 1,000 mg PO BID 30 Days Discharge Medication List Aspirin [Adult Low Dose Aspirin EC] 81 mg PO DAILY 30 Days 10/21/16 [Rx] Clotrimazole Cream [Lotrimin Cream] 1 applic TOPICAL BID 30 Days 10/21/16 [Rx] DULoxetine HCL [Cymbalta] 30 mg PO DAILY 30 Days 10/21/16 [Rx] DULoxetine HCL [Cymbalta] 60 mg PO PC-LUNCH 30 Days 10/21/16 [Rx] Divalproex ER [Depakote ER] 1,000 mg PO HS 30 Days 10/21/16 [Rx] Divalproex ER [Depakote ER] 500 mg PO DAILY 30 Days 10/21/16 [Rx] Lidocaine 2% Gel [Xylocaine Jelly 2%] 1 applic TOPICAL BID 30 Days 10/21/16 [Rx] Methocarbamol [Robaxin] 500 mg PO TID 30 Days 10/21/16 [Rx] QUEtiapine [SEROquel] 200 mg PO HS 30 Days 10/21/16 [Rx] Simvastatin [Zocor] 40 mg PO HS 30 Days 10/21/16 [Rx] clonazePAM [KlonoPIN] 0.25 mg PO BID PRN 7 Days 10/21/16 [Rx] levETIRAcetam 1,000 mg PO BID 30 Days 10/21/16 [Rx] Follow up Appointment(s)/Referral(s): [facility] [Other] - 11/08/16 10:30 am (Avelina Holman) [facility] [Outside] - 10/25/16 9:00 am (Niki Butcher) Cassie Evans MD [Primary Care Provider] - 1-2 days Patient Instructions/Handouts: Depression (DC), Suicide Prevention for Adults ( DC) Activity/Diet/Wound Care/Special Instructions: No alcohol or street drugs. Take medications as prescribed. Notify the crisis line or your care provider if symptoms worsen. Crisis line no. . Regular diet. Activity as tolerated. Discharge Disposition: HOME SELF-CARE
== END 2016-10-21 12:11 | disposition home or self-care (01) | DRG 885 ==
LOC: EC 15:00 → 3MHU 18:38
PROVIDERS: ADMIT Psychiatry & Neurology Psychiatry; ATTEND Psychiatry & Neurology Psychiatry
DX: F33.9 Major depressive disorder, recurrent, unspecified (principal); G40.909 Epilepsy, unspecified, not intractable, without status epilepticus; R45.851 Suicidal ideations; E78.5 Hyperlipidemia, unspecified; F12.90 Cannabis use, unspecified, uncomplicated; F17.200 Nicotine dependence, unspecified, uncomplicated; F41.9 Anxiety disorder, unspecified; G47.00 Insomnia, unspecified; G89.29 Other chronic pain; K21.9 Gastro-esophageal reflux disease without esophagitis; Z59.0 Homelessness; Z59.1 Inadequate housing; Z79.82 Long term (current) use of aspirin; Z82.49 Family history of ischemic heart disease and other diseases of the circulatory system; Z86.73 Personal history of transient ischemic attack (TIA), and cerebral infarction without residual deficits; Z87.442 Personal history of urinary calculi; Z98.1 Arthrodesis status; Z88.8 Allergy status to other drugs, medicaments and biological substances; Z79.899 Other long term (current) drug therapy
CPT/HCPCS: 36415; 80053; 80164; 80306; 82075; 83520; 84443; 85025; 93005; 99285

== ENCOUNTER → 2016-10-24 | Outpatient (CLI) | payer OTHER ==
[2016-10-21 14:14] VITALS: BMI 26.6
[2016-10-24 12:03] VITALS: BP 138/84; PULSE 86; RESP 16; TEMP 97
--- NOTE | 2016-10-24 12:44 | P.HPIM ---
History of Present Illness H&P Date: 10/24/16 Chief Complaint: low back and left lower extremity pain This is a 41-year-old patient referred by Dr. Galvez for chronic pain in neck, but moreso low back and left leg that has lasted since 2009, this includes a sharp, throbbing pain in the low back with numbness/tingling/rgsn-dzb-migqoet pain in his LLE. Patient has been taking medications from primary care physician Dr. Evans including Tylenol #4 and Cymbalta medications with some relief. Patient denies adverse drug effects from medications. Patient also denies new-onset weakness, bowel/bladder incontinence, or any other signs or symptoms of cauda equina syndrome. There are no signs of acute intoxication, and no indications of medication diversion or overuse. Patient notes that pain worsens significantly with standing and walking and improves with sitting, rest, ice and medication. Patient has used several types of medications for pain, including NSAIDS, OPIOIDS, TRAMADOL, ANTIDEPRESSANTS. Patient HAS had surgery (in his neck, never in his back). Patient HAS had injections previously (epidurals and rhizotomies) by Dr. Ross in [place] ([facility]). Patient HAS NOT had physical therapy recently. In addition to above, 13-point review of systems is also negative for chest pain , shortness of breath, changes in vision, changes in hearing, new onset weakness , abdominal pain, diarrhea, extreme fatigue, malaise, fever, skin changes, homicidal or suicidal ideation, or bowel or bladder incontinence. Vital Signs: Reviewed in EMR Gen: WDWN, AAOx3, NAD HEENT: NCAT, EOMI, hearing grossly normal Pulm: resp unlabored Abd: soft, NT, ND Neck: supple, trachea midline ROM in flexion lumbar spine: reduced ROM in extension lumbar spine: reduced Lumbar paravertebral tenderness: + Facet loading: ++ L side, + R side SI joint tenderness: + L side, neg R side Brett's test: ++ L side, neg R side Straight leg raise: + L side at 10 degrees, negative R side Neuro: CN II-XII grossly intact, muscle strength lower extremities PRESERVED Past Medical History Past Medical History: GERD/Reflux, Hyperlipidemia, Seizure Disorder Additional Past Medical History / Comment(s): chronic back pain, herniated disc , kidney stone History of Any Multi-Drug Resistant Organisms: None Reported Past Surgical History: Hernia Repair, Orthopedic Surgery Additional Past Surgical History / Comment(s): cervical fusion ACDF 2010,carpel tunnel, lt knee arthroscopic surgery, polyp removal, hemorrhoid surgery, rectal warts, sinus surgery Past Anesthesia/Blood Transfusion Reactions: No Reported Reaction Past Psychological History: Anxiety, Depression Smoking Status: Current every day smoker Past Alcohol Use History: None Reported Additional Past Alcohol Use History / Comment(s): Patient smokes 2-1/2 packs of cigarettes per day 30 years. Past Drug Use History: Marijuana - Past Family History Mother Family Medical History: Hyperlipidemia, Hypertension, Osteoarthritis (OA) Additional Family Medical History / Comment(s): Mom is alive at 70 years of age Father Family Medical History: Cancer, Liver Disease Additional Family Medical History / Comment(s): Dad at age 60 from liver cancer, hepatitis C, cirrhosis. Sister(s) Family Medical History: No Reported History Daughter(s) Family Medical History: No Reported History Son(s) Family Medical History: No Reported History Additional Family Medical History / Comment(s): Patient states he has 4 sisters that are healthy. Medications and Allergies Home Medications Medication Instructions Recorded Confirmed Type Acetaminophen with Codeine 1 tab PO Q6HR PRN 10/24/16 10/24/16 History [Tylenol w/codeine #4] Allergies Allergy/AdvReac Type Severity Reaction Status Date / Time No Known Allergies Allergy Verified 10/24/16 11:53 Physical Exam Vitals: Vital Signs Temp Pulse Resp BP Pulse Ox 10/24/16 11:57 97 F L 86 16 138/84 98 Results Comments: MRI cervical spine dated 08/17/2016 demonstrates previous anterior fusion of C5 through C7 with mild marginal spurring at C4 through C7 there is moderate bilateral foraminal stenosis at C4-C5 without any disc protrusion or canal stenosis. MRI of the lumbar spine dated 08/17/2016 demonstrates disc space desiccation and height loss and fatty in plate changes at L5-S1 there is mild facet arthropathy throughout the lumbar spine and disc desiccation at the L3-L4 and L4 -L5 levels as well. There is a small left-sided foraminal disc protrusion at the L3-L4 level mildly impinging on the left L3 nerve root. There is a left foraminal annular tear at the L4-L5 level adjacent to the left L4 nerve root. There is marginal spurring arthropathy at the L5-S1 level resulting in mild impingement on the left L5 and S1 nerve roots. Assessment and Plan (1) Lumbar radiculopathy Status: Chronic (2) Lumbosacral spondylosis without myelopathy Status: Chronic (3) Lumbar disc herniation Status: Chronic Plan: Plan: 1. Explanation: Opioid and psychological risk scores were reviewed. Diagnoses , prognoses, and multiple treatment options including but not limited to physical therapy, interventional therapies, adjuvant medical therapies, narcotic medication therapies, and surgery were discussed with the patient and all questions were answered to the patient's satisfaction. 2. Opioid agreement: no opioids prescribed, patient uses THC and has significant history of mental illness 3. Counseling: The patient was counseled extensively on SMOKING CESSATION, BODY MASS INDEX, EXERCISE. Specifically, the patient was instructed regarding the importance of smoking cessation, obesity, and exercise in the context of both chronic pain and overall health. 4. Procedures: left L5 + S1 TFESI; can consider SIJ injection in future given physical exam 5. Consultations: none 6. Investigations: none 7. Medications: Lyrica 75 mg TID (patient is currently on Cymbalta and has tried Neurontin without relief) 8. Disposition: f/u for procedure as scheduled PQRS measures: 1-Patient's medications are documented in the chart. 2-Tobacco use is positive, counseling given 3-Patient has had a pneumococcal vaccine. 4-Advanced care planning discussed, patient unable to give. 5-Opioid contract NOT signed with the patient (no opioids prescribed today). 6-Pain positive, follow-up visit or procedure scheduled 7-Patient's blood pressure measured and documented, and patient will follow up with the primary care due to hypertension. 8-Patient's weight was measured, and body mass index ABOVE the normal limits, and counseling was done. Patient instructed to follow up with PCP. 9-Patient WAS NOT identified as an unhealthy alcohol user. Time with Patient: Greater than 30
== END | disposition home or self-care (01) ==
LOC: PNWHC3 11:46
PROVIDERS: ATTEND Anesthesiology
DX: M54.16 Radiculopathy, lumbar region (principal); M47.816 Spondylosis without myelopathy or radiculopathy, lumbar region; M51.26 Other intervertebral disc displacement, lumbar region; F17.200 Nicotine dependence, unspecified, uncomplicated; I10 Essential (primary) hypertension
CPT/HCPCS: 99211

== ENCOUNTER 2016-12-12 06:28 | Day surgery (SDC) | payer OTHER ==
[2016-12-07 17:55] VITALS: BMI 28.8
[2016-12-12 06:50] VITALS: RESP 16; TEMP 97.5
[2016-12-12] MEDS ORDERED: LACTATED RINGERS 1,000 ML IV ONE ×2 (06:59)
[2016-12-12] MEDS ORDERED: TRIAMCINOLONE ACETONIDE 40 MG/ML 1 ML VIAL ONE (07:06)
[2016-12-12] MEDS ORDERED: IOHEXOL 180 MG/ML 1 ML ML ONE (07:06)
[2016-12-12] MEDS ORDERED: fentaNYL (PF) 50 MCG/ML 2 ML AMP ONE (07:06)
[2016-12-12] MEDS ORDERED: MIDAZOLAM 2 MG/2 ML VIAL ONE (07:06)
[2016-12-12] MEDS ORDERED: LACTATED RINGERS 1,000 ML IV SCH (07:15)
[2016-12-12] MEDS ORDERED: IV FLUID CONTINUATION 1,000 ML IV ONE (07:32)
--- NOTE | 2016-12-12 07:35 | P.PCN ---
Date of Procedure: 12/12/16 Surgeon: Jeevan Hernandez Pathology: none sent Condition: stable Disposition: PACU Description of Procedure: PREOPERATIVE DIAGNOSIS: 1-Lumbar radiculitis POSTOPERATIVE DIAGNOSIS: 1-Lumbar radiculitis PROCEDURE 1. Transforaminal epidural steroid injection under fluoroscopic guidance at left L5 and S1 levels. 2. Lumbar epidurogram. ANESTHESIA: Conscious sedation. EBL: Minimal PROCEDURE INDICATION: The patient with low back and left-sided (ONLY) leg pain that has been unresponsive to conservative management. No use of blood thinners. Patient presents for TFESI #1 today. PROCEDURE DESCRIPTION / TECHNIQUE: The patient was seen and identified in the preoperative area. Risks, benefits, complications, and alternatives were discussed with the patient, including but not limited to bleeding, infection, nerve damage, allergic reactions to medications, and incomplete pain relief. The patient agreed to proceed with the procedure and signed the consent after all questions were answered. IV was started, and vital signs were stable. Patient was taken to the OR and time out was completed to confirm patient position, procedure, laterality of pain, and allergies. The patient was placed in the prone position on procedure table and a pillow was placed under the abdomen to reduce lumbar lordosis. The lumbosacral area was prepped and draped in the usual sterile fashion. Critical pause was taken. Vital signs were closely monitored during the procedure. Conscious sedation was used during the procedure to decrease patients anxiety. Using oblique fluoroscopy, the chins of the Shashi dog at left L5 and left S1 levels were identified. After localization, a 22-gauge 3.5-inch spinal needle was advanced under a tunneled view fluoroscopic guidance just underneath the chin of the Shashi dog at the left L5 and left S1 vertebrae. Under lateral fluoroscopy, the needle was then advanced to the posterior border of the interforaminal spaces at both levels. After negative aspiration of CSF and blood and with no paresthesias, 0.5 mL of Omnipaque-300 contrast dye was injected at each level demonstrating excellent epidurogram and outlining the nerve roots. Subsequently, after repeat negative aspiration and confirmation of the epidurogram in the AP view, 3 mL of 6 ml block solution containing 80 mg of Kenalog and 2 mL of PF 1% lidocaine and 2 ml PF normal saline was injected at each level. At the end of the procedure, needles were removed intact, skin was cleansed, and bandages were applied. COMPLICATIONS: None DISPOSITION / PLANS: The patient was placed in a supine position and transferred to the recovery area in a stable condition for observation. There was no evidence of lower extremity motor or sensory deficit after the procedure. Patient was discharged from the recovery room after meeting discharge criteria. Home discharge instructions were given to the patient by the staff. The patient was reexamined prior to discharge and there were no issues. The patient will schedule follow-up injection in 4-6 weeks. If he gets minimal relief from this procedure, consider interlaminar LESI at L5-S1 level at next visit.
[2016-12-12 07:52] VITALS: BP 115/80; PULSE 66
--- NOTE | 2016-12-12 09:13 | FL ---
EXAMINATION TYPE: FL guided pain mgmt statistic DATE OF EXAM: 12/12/2016 7:34 AM HISTORY: Flouroscopy time 29 seconds of fluoroscopy provided. IMPRESSION: 1. Fluoroscopy time.
== END 2016-12-12 08:07 | disposition home or self-care (01) ==
LOC: ORPAIN 06:28
PROVIDERS: ATTEND Anesthesiology
DX: M54.16 Radiculopathy, lumbar region (principal); E78.5 Hyperlipidemia, unspecified; F41.9 Anxiety disorder, unspecified; F32.9 Major depressive disorder, single episode, unspecified; Z72.0 Tobacco use; Z88.8 Allergy status to other drugs, medicaments and biological substances; Z79.82 Long term (current) use of aspirin; Z79.899 Other long term (current) drug therapy
CPT/HCPCS: 99152; 64483; 64484; J2250; J3301; Q9965; J3010

== ENCOUNTER 2016-12-25 18:49 | Emergency (ER) | payer OTHER ==
[2016-12-25 19:37] VITALS: TEMP 98.2
[2016-12-25] MEDS ORDERED: MORPHINE SULFATE 4 MG/ML SYRINGE IVP STA (19:44)
[2016-12-25] MEDS ORDERED: SODIUM CHLORIDE 0.9% 1,000 ML IV ONE (19:44)
[2016-12-25] MEDS ORDERED: ONDANSETRON 4 MG/2 ML VIAL IVP STA (19:44)
--- NOTE | 2016-12-25 19:48 | ED ---
Abdominal Pain HPI - General Chief Complaint: Abdominal Pain Stated Complaint: LEFT SIDE ABDOMINAL PAIN Time Seen by Provider: 12/25/16 19:39 Source: patient, RN notes reviewed Mode of arrival: ambulatory Limitations: no limitations - History of Present Illness Initial Comments: Patient is a 41-year-old male presents emergency room for evaluation abdominal pain. Patient states he's having left-sided burning sensation pain in his abdomen. Patient states it started this morning. Patient stated the pain will not go away. Patient states he took Tylenol 3 with little relief of symptoms. Patient states he's never experienced pain like this before. Patient states the pain is worse with movement. Patient does admit that he has a history of kidney stones. Patient states it does not feel similar to kidney stones. Patient states he had a bowel movement this morning which was normal. Patient denies any discoloration of stools or blood in stools. Patient denies recent diarrhea or constipation. Patient states he is nauseous but denies vomiting. Patient's he's having 9 out of 10 constant throbbing pain. Patient denies any pain or burning during urination, trouble urinating or blood in urine. Patient denies fevers or chills. Patient states he's had a few hernia repairs in his abdomen but denies any other surgeries. Patient denies chest pain or shortness of breath. Patient denies headache or dizziness. - Related Data Home Medications Medication Instructions Recorded Confirmed Acetaminophen-Codeine 300-30mg 1 tab PO Q4H PRN 12/07/16 12/25/16 [Tylenol #3] DULoxetine HCL [Cymbalta] 60 mg PO DAILY 12/07/16 12/25/16 Methocarbamol [Robaxin] 500 mg PO TID PRN 12/07/16 12/25/16 Mirtazapine [Remeron] 30 mg PO HS 12/07/16 12/25/16 Tamsulosin [Flomax] 0.4 mg PO DAILY 12/07/16 12/25/16 Biotin 5 mg PO DAILY 12/25/16 12/25/16 Multivitamins, Thera [Multivitamin 1 tab PO DAILY 12/25/16 12/25/16 (formulary)] Nicotine 21Mg/24Hr Patch [Habitrol 1 patch TRANSDERM DAILY 12/25/16 12/25/16 21Mg/24Hr Patch] Previous Rx's Medication Instructions Recorded Aspirin [Adult Low Dose Aspirin EC] 81 mg PO DAILY 30 Days 10/21/16 Divalproex ER [Depakote ER] 1,000 mg PO HS 30 Days 10/21/16 Simvastatin [Zocor] 40 mg PO HS 30 Days 10/21/16 levETIRAcetam 1,000 mg PO BID 30 Days 10/21/16 Ciprofloxacin HCl [Cipro] 500 mg PO Q12HR 7 Days 12/25/16 metroNIDAZOLE [Flagyl] 500 mg PO TID 7 Days 12/25/16 Allergies Allergy/AdvReac Type Severity Reaction Status Date / Time quetiapine [From Seroquel] Allergy Unknown Verified 12/25/16 19:55 Review of Systems ROS Statement: Those systems with pertinent positive or pertinent negative responses have been documented in the HPI. ROS Other: All systems not noted in ROS Statement are negative. Past Medical History Past Medical History: GERD/Reflux, Hyperlipidemia, Seizure Disorder Additional Past Medical History / Comment(s): chronic back pain, herniated disc , kidney stone, LAST SEIZURE 07/31/16 History of Any Multi-Drug Resistant Organisms: None Reported Past Surgical History: Hernia Repair, Orthopedic Surgery Additional Past Surgical History / Comment(s): cervical fusion ACDF 2009,carpel tunnel, lt knee arthroscopic surgery, polyp removal, hemorrhage surgery hemorrhoid surgery, rectal warts, sinus surgery Past Anesthesia/Blood Transfusion Reactions: No Reported Reaction Past Psychological History: Anxiety, Depression Smoking Status: Current every day smoker Past Alcohol Use History: None Reported Additional Past Alcohol Use History / Comment(s): STARTED SMOKING AT AGE 9 SMOKES 1 PPD Past Drug Use History: None Reported Additional Drug Use History / Comment(s): QUIT MARIJUANA OCT 2016 - Past Family History Mother Family Medical History: Hyperlipidemia, Hypertension, Osteoarthritis (OA) Additional Family Medical History / Comment(s): Mom is alive at 70 years of age Father Family Medical History: Cancer, Liver Disease Additional Family Medical History / Comment(s): Dad at age 60 from liver cancer, hepatitis C, cirrhosis. Sister(s) Family Medical History: No Reported History Daughter(s) Family Medical History: No Reported History Son(s) Family Medical History: No Reported History Additional Family Medical History / Comment(s): Patient states he has 4 sisters that are healthy. General Exam - General Exam Comments Initial Comments: Sitting in exam room, no distress. Limitations: no limitations General appearance: alert, in no apparent distress Head exam: Present: atraumatic, normocephalic, normal inspection Eye exam: Present: normal appearance ENT exam: Present: normal exam Neck exam: Present: normal inspection Respiratory exam: Present: normal lung sounds bilaterally. Absent: respiratory distress Cardiovascular Exam: Present: regular rate, normal rhythm, normal heart sounds GI/Abdominal exam: Present: soft, tenderness (Left lower quadrant), normal bowel sounds. Absent: distended, guarding, rebound, rigid Extremities exam: Present: normal inspection Back exam: Present: normal inspection Neurological exam: Present: alert, oriented X3, CN II-XII intact, normal gait Psychiatric exam: Present: normal affect, normal mood Skin exam: Present: warm, dry, intact, normal color. Absent: rash Course Vital Signs 12/25/16 12/25/16 19:33 22:52 Temperature 98.2 F Pulse Rate 103 H 70 Respiratory 20 16 Rate Blood Pressure 128/78 128/70 O2 Sat by Pulse 95 100 Oximetry Medical Decision Making - Medical Decision Making Patient is a 41-year-old male presents emergency room for evaluation of left lower quadrant pain. Labwork shows no concerning findings. Patient still complaining of pain after medications given. CT abdomen/pelvis ordered. CT of abdomen/pelvis significant for possible colitis. Will treat patient with Cipro and Flagyl and have her follow-up with his primary care provider. Patient states he is feeling better after medications given. Patient states he understands everything that was discussed with him. Return parameters discussed. Case discussed with Dr. Cano. - Lab Data Result diagrams: 12/25/16 19:50 12/25/16 19:50 Lab Results 12/25/16 12/25/16 12/25/16 Range/Units 19:50 19:50 19:50 WBC 10.3 (3.8-10.6) k/uL RBC 4.56 (4.30-5.90) m/uL Hgb 14.7 (13.0-17.5) gm/dL Hct 43.4 (39.0-53.0) % MCV 95.2 (80.0-100.0) fL MCH 32.3 (25.0-35.0) pg MCHC 34.0 (31.0-37.0) g/dL RDW 12.8 (11.5-15.5) % Plt Count 178 (150-450) k/uL Neutrophils % 71 % Lymphocytes % 20 % Monocytes % 5 % Eosinophils % 2 % Basophils % 1 % Neutrophils # 7.4 (1.3-7.7) k/uL Lymphocytes # 2.0 (1.0-4.8) k/uL Monocytes # 0.5 (0-1.0) k/uL Eosinophils # 0.2 (0-0.7) k/uL Basophils # 0.1 (0-0.2) k/uL Sodium 141 (137-145) mmol/L Potassium 4.5 (3.5-5.1) mmol/L Chloride 102 (98-107) mmol/L Carbon Dioxide 32 H (22-30) mmol/L Anion Gap 7 mmol/L BUN 15 (9-20) mg/dL Creatinine 0.90 (0.66-1.25) mg/dL Est GFR (MDRD) Af Amer >60 (>60 ml/min/1.73 sqM) Est GFR (MDRD) Non-Af >60 (>60 ml/min/1.73 sqM) Glucose 81 (74-99) mg/dL Calcium 9.1 (8.4-10.2) mg/dL Total Bilirubin 0.3 (0.2-1.3) mg/dL AST 20 (17-59) U/L ALT 36 (21-72) U/L Alkaline Phosphatase 47 (38-126) U/L Total Protein 6.0 L (6.3-8.2) g/dL Albumin 3.6 (3.5-5.0) g/dL Amylase 47 (30-110) U/L Lipase 64 (23-300) U/L Urine Color Urine Appearance (Clear) Urine pH (5.0-8.0) Ur Specific [place] (1.001-1.035) Urine Protein (Negative) Urine Glucose (UA) (Negative) Urine Ketones (Negative) Urine Blood (Negative) Urine Nitrite (Negative) Urine Bilirubin (Negative) Urine Urobilinogen (<2.0) mg/dL Ur Leukocyte Esterase (Negative) 12/25/16 Range/Units 19:50 WBC (3.8-10.6) k/uL RBC (4.30-5.90) m/uL Hgb (13.0-17.5) gm/dL Hct (39.0-53.0) % MCV (80.0-100.0) fL MCH (25.0-35.0) pg MCHC (31.0-37.0) g/dL RDW (11.5-15.5) % Plt Count (150-450) k/uL Neutrophils % % Lymphocytes % % Monocytes % % Eosinophils % % Basophils % % Neutrophils # (1.3-7.7) k/uL Lymphocytes # (1.0-4.8) k/uL Monocytes # (0-1.0) k/uL Eosinophils # (0-0.7) k/uL Basophils # (0-0.2) k/uL Sodium (137-145) mmol/L Potassium (3.5-5.1) mmol/L Chloride (98-107) mmol/L Carbon Dioxide (22-30) mmol/L Anion Gap mmol/L BUN (9-20) mg/dL Creatinine (0.66-1.25) mg/dL Est GFR (MDRD) Af Amer (>60 ml/min/1.73 sqM) Est GFR (MDRD) Non-Af (>60 ml/min/1.73 sqM) Glucose (74-99) mg/dL Calcium (8.4-10.2) mg/dL Total Bilirubin (0.2-1.3) mg/dL AST (17-59) U/L ALT (21-72) U/L Alkaline Phosphatase (38-126) U/L Total Protein (6.3-8.2) g/dL Albumin (3.5-5.0) g/dL Amylase (30-110) U/L Lipase (23-300) U/L Urine Color Light Yellow Urine Appearance Clear (Clear) Urine pH 6.5 (5.0-8.0) Ur Specific [place] 1.006 (1.001-1.035) Urine Protein Negative (Negative) Urine Glucose (UA) Trace H (Negative) Urine Ketones Negative (Negative) Urine Blood Negative (Negative) Urine Nitrite Negative (Negative) Urine Bilirubin Negative (Negative) Urine Urobilinogen <2.0 (<2.0) mg/dL Ur Leukocyte Esterase Negative (Negative) - Radiology Data Radiology results: report reviewed, image reviewed Disposition Clinical Impression: Colitis Disposition: HOME SELF-CARE Condition: Good Instructions: Colitis (ED) Additional Instructions: Take antibiotics as directed. Please follow up with primary care provider for reevaluation in 24-48 hours. If any new symptom arises or symptoms worsen, return to ER as soon as possible. Prescriptions: Ciprofloxacin HCl [Cipro] 500 mg PO Q12HR 7 Days metroNIDAZOLE [Flagyl] 500 mg PO TID 7 Days Referrals: Cassie Evans MD [Primary Care Provider] - 1-2 days Time of Disposition: 22:42
[2016-12-25 20:05] LABS: Basophils # (A) 0.1 k/uL (0-0.2); Basophils % (A) 1 %; CH 32.6; CHCM 34.4; Eosinophils # (A) 0.2 k/uL (0-0.7); Eosinophils % (A) 2 %; HCT 43.4 % (39.0-53.0); HDW 2.35; HGB 14.7 gm/dL (13.0-17.5); Luc # (Auto) 0.22; Luc % (Auto) 2; Lymphocytes % (A) 20 %; MCH 32.3 pg (25.0-35.0); MCV 95.2 fL (80.0-100.0); Mean Platelet Volume 7.7; Monocytes # (A) 0.5 k/uL (0-1.0); Monocytes % (A) 5 %; Neutrophils # (A) 7.4 k/uL (1.3-7.7); Neutrophils % (A) 71 %; RBC 4.56 m/uL (4.30-5.90); RDW 12.8 % (11.5-15.5); WBC 10.3 k/uL (3.8-10.6); WBC (Perox) 10.56
[2016-12-25 20:06] LABS: Appearance,Urine Clear (Clear); Bilirubin,Urine Negative (Negative); Glucose,Urine (UA) Trace (Negative); Ketones,Urine Negative (Negative); Leukocyte Esterase,Urine Negative (Negative); Nitrite,Urine Negative (Negative); PH, Urine 6.5 (5.0-8.0); Protein,Urine Negative (Negative); Specific Gravity,Urine 1.006 (1.001-1.035); UA Billing (MACRO vs. MICRO) CHEM; Urobilinogen,Urine <2.0 mg/dL (<2.0)
[2016-12-25 20:14] LABS: ALT 36 U/L (21-72); AST 20 U/L (17-59); Alkaline Phosphatase 47 U/L (38-126); Amylase 47 U/L (30-110); Anion Gap 7 mmol/L; Blood Urea Nitrogen 15 mg/dL (9-20); Calcium 9.1 mg/dL (8.4-10.2); Carbon Dioxide 32 mmol/L (22-30); Chloride 102 mmol/L (98-107); Glucose 81 mg/dL (74-99); Non-African American GFR(MDRD) >60 (>60 ml/min/1.73 sqM); Potassium 4.5 mmol/L (3.5-5.1); Sodium 141 mmol/L (137-145); Total Bilirubin 0.3 mg/dL (0.2-1.3)
--- NOTE | 2016-12-25 20:41 | XR ---
EXAMINATION TYPE: XR KUB DATE OF EXAM: 12/25/2016 8:26 PM CLINICAL HISTORY: Left-sided abdominal pain and nausea. TECHNIQUE: 2 upright KUB images of the abdomen are obtained. COMPARISON: Abdominal x-ray November 22, 2014. FINDINGS: Scattered gas is seen in non-distended small bowel loops. Single gas-filled small bowel l oop left midabdomen is slightly prominent. Gas and fecal material is seen in non-distended colon. Th ere is no visceromegaly, pneumoperitoneum, or abnormal calcification appreciated. The lung bases ar e clear and the osseous structures are intact. IMPRESSION: Overall nonspecific strongly favor nonobstructive bowel gas pattern.
[2016-12-25] MEDS ORDERED: RX INFO: IV CONTRAST WAS GIVEN 1 EACH MISC MISCELLANE PRN (20:51)
--- NOTE | 2016-12-25 22:06 | CT ---
EXAMINATION TYPE: CT abdomen pelvis w con DATE OF EXAM: 12/25/2016 9:21 PM COMPARISON: NONE HISTORY: Left side abdominal pain. CT DLP: 925.1 mGycm, Automated Exposure Control for Dose Reduction was Utilized. CONTRAST: CT scan of the abdomen and pelvis is performed without oral and with IV Contrast, patient injected wi th 100 mL of Omnipaque 300. FINDINGS: LUNG BASES: Bibasilar dependent atelectasis. LIVER/GB: No significant abnormality is appreciated. PANCREAS: No significant abnormality is seen. SPLEEN: No significant abnormality is seen. ADRENALS: No significant abnormality is seen. KIDNEYS: There is 2.6 cm simple cyst upper pole left kidney. BOWEL: Evaluation of bowel suboptimal without enteric contrast. Appendix normal limits RLQ. No byron picious dilatation. Redundant sigmoid with diverticula. Mild wall thickening sigmoid rectal colon w ithout surrounding inflammatory change. Colitis not entirely excluded. PROSTATE/SEMINAL VESICLES: No gross abnormality seen. LYMPH NODES: No greater than 1cm abdominal or pelvic lymph nodes are appreciated. OSSEOUS STRUCTURES: Disk space narrowing with vacuum disk phenomenon LS Junction. OTHER: Small fat containing umbilical hernia. IMPRESSION: Possible mild distal colitis as noted above, otherwise no significant acute finding is se en to account for patient's clinical symptoms.
[2016-12-25] MEDS ORDERED: KETOROLAC 30 MG/ML 1 ML VIAL IVP STA (22:11)
[2016-12-25 22:53] VITALS: BP 128/70; PULSE 70; RESP 16
== END 2016-12-25 22:52 | disposition home or self-care (01) ==
LOC: EC 18:49
DX: K52.9 Noninfective gastroenteritis and colitis, unspecified (principal); E78.5 Hyperlipidemia, unspecified; G40.909 Epilepsy, unspecified, not intractable, without status epilepticus; F41.9 Anxiety disorder, unspecified; F32.9 Major depressive disorder, single episode, unspecified; Z79.82 Long term (current) use of aspirin; Z79.899 Other long term (current) drug therapy; Z87.891 Personal history of nicotine dependence; Z87.442 Personal history of urinary calculi; Z88.8 Allergy status to other drugs, medicaments and biological substances
CPT/HCPCS: 36415; 80053; 82150; 83690; 85025; 81003; 74000; 74177; 96374; 96375; 99284; J2270; J2405; J1885; Q9967

== ENCOUNTER 2016-12-29 06:41 | Day surgery (SDC) | payer OTHER ==
[2016-12-28 08:53] VITALS: BMI 31.0
[2016-12-29] MEDS ORDERED: LACTATED RINGERS 1,000 ML IV SCH (07:00)
[2016-12-29 08:14] VITALS: TEMP 97.9
[2016-12-29] MEDS ORDERED: LIDOCAINE 1% 20 ML VIAL (10MG/ML) FOR IV START INTRADERMA ONE (08:21)
[2016-12-29] MEDS ORDERED: MIDAZOLAM 2 MG/2 ML VIAL IV ONE (09:40)
[2016-12-29] MEDS ORDERED: fentaNYL (PF) 50 MCG/ML 2 ML AMP IV ONE (10:54)
[2016-12-29] MEDS ORDERED: MIDAZOLAM 2 MG/2 ML VIAL ONE (11:08)
[2016-12-29] MEDS ORDERED: TRIAMCINOLONE ACETONIDE 40 MG/ML 1 ML VIAL ONE (11:08)
[2016-12-29] MEDS ORDERED: IOHEXOL 180 MG/ML 1 ML ML ONE (11:08)
--- NOTE | 2016-12-29 11:21 | P.PCN ---
Date of Procedure: 12/29/16 Procedure(s) Performed: PREOPERATIVE DIAGNOSIS: 1- Lumbar radiculopathy 2-Lumbar spondylosis . 3-lumbar herniated disc disease. POSTOPERATIVE DIAGNOSIS: Same as preoperative diagnosis. PROCEDURE 1. Lumbar epidural steroid injection under fluoroscopic guidance at the L5-S1 level (left paramedian approach ). 2. Lumbar epidurogram. ANESTHESIA: Local with 1% lidocaine 3 ml and IV sedation with Versed 2 mg EBL: Minimal PROCEDURE INDICATION: The patient with low back pain and radiculitis symptoms unresponsive to conservative treatment. Fluoroscopy was used to optimize visualization of the needle placement and to maximize safety. (Patient had left transforaminal epidural steroid injections L5-S1 junction weeks ago patient reported that he had 0 benefits from it, for this reason today with minimal change the procedure to lumbar epidural steroid injection at interlaminar approach, hopefully he will have better benefit. PROCEDURE DESCRIPTION / TECHNIQUE: The patient was seen and identified in the preoperative area. Risks, benefits , complications including but not limited to infections ,bleeding ,allergic reaction to the medications ,nerve damage and not complete pain releife , and alternatives were discussed with the patient. The patient agreed to proceed with the procedure and signed the consent. IV was started, and vital signs were stable. Patient was taken to the OR and time out was completed. The patient was placed in the prone position on procedure table and a pillow was placed under the abdomen to reduce lumbar lordosis. The lumbosacral area was prepped and draped in the usual sterile fashion.ere closely monitored during the procedure. Conscious sedation was used during the procedure to decrease patients anxiety. Vital signs was monitered during the entire procedure. Using anterior-posterior fluoroscopy, the L5-S1 interlaminar space was identified and the skin over this site was marked and then infiltrated with 1% lidocaine subcutaneously. Subsequently, a 20-gauge Tuohy epidural needle was inserted and advanced toward the epidural space using the ``Loss of resistance technique and guided by AP and lateral fluoroscopy. The correct needle position in the epidural space was verified with the injection of 2 mL of the water soluble contrast dye Omnipaque 180 contrast and observing an excellent epidurogram with the epidural spread of the dye, after negative aspiration for blood and CSF and in the absence of paresthesias. Again after negative aspiration, a 6 ml mixture containing 80 mg of Kenalog and 2 ml of preservative free Normal Saline, and 2 ml of preservative free lidocaine 1% solution was injected and a washout of epidurogram was seen. Needle was withdrawn intact, skin was cleansed, and bandages were applied. COMPLICATIONS: None DISPOSITION / PLANS: The patient was placed in a supine position and transferred to the recovery area in a stable condition for observation. There was no evidence of lower extremity motor or sensory deficit after the procedure. Patient was discharged from the recovery room after meeting discharge criteria. Home discharge instructions were given to the patient by the staff. The patient was reexamined prior to discharge. The patient will schedule a follow up in the clinic in 2-4 weeks.
[2016-12-29] MEDS ORDERED: IV FLUID CONTINUATION 1,000 ML IV ONE (11:23)
[2016-12-29 11:26] VITALS: PULSE 63; RESP 18
--- NOTE | 2016-12-29 11:28 | FL ---
Fluoroscopy HISTORY: Pain 2 seconds fluoroscopy time supplied to the referring clinician. 1 intraoperative C-arm images docume nt the procedure. See dictated report from anesthesia.
[2016-12-29 11:46] VITALS: BP 106/70
== END 2016-12-29 11:54 | disposition home or self-care (01) ==
LOC: ORPAIN 06:41
PROVIDERS: ATTEND Specialist
DX: M47.26 Other spondylosis with radiculopathy, lumbar region (principal); M51.26 Other intervertebral disc displacement, lumbar region; Z88.8 Allergy status to other drugs, medicaments and biological substances
CPT/HCPCS: 62323; J2250; J3301; Q9965; J3010

== ENCOUNTER 2017-01-15 14:40 | Emergency (ER) | payer OTHER ==
[2017-01-15 14:46] VITALS: BP 120/71; PULSE 98; RESP 20; TEMP 98.1
[2017-01-15] MEDS ORDERED: Acetaminophen-Codeine 300-30mg TAB PO STA (15:07)
--- NOTE | 2017-01-15 15:25 | ED ---
Extremity Problem HPI - General Source: patient, RN notes reviewed Mode of arrival: wheelchair Limitations: physical limitation <Renae Jha - Last Filed: 01/15/17 16:37> <Omer Quiroz - Last Filed: 03/01/17 14:50> - General Chief complaint: Extremity Problem,Nontraumatic Stated complaint: Knee Pain Time Seen by Provider: 01/15/17 14:48 - History of Present Illness Initial comments: 41-year-old male presented to the ER with worsening left knee pain. He states for about a month that has been bothering him however the pain had increased today prompting him to come to the ER. He states that in 2003 he did have a meniscal repair to the area. He is able to walk and bear weight but sometimes it does feel like it wants to give out. He states that he does take Tylenol 3 regularly for some back pain and sciatica. He took one approximately 4 hours ago. He states that there was no injury or trauma to the knee that he can remember. He denies constitutional symptoms including nausea, vomiting, diarrhea, acute onset of back pain. (Renae Jha) - Related Data Home Medications Medication Instructions Recorded Confirmed Acetaminophen-Codeine 300-30mg 1 tab PO Q4H PRN 12/07/16 02/01/17 [Tylenol #3] DULoxetine HCL [Cymbalta] 60 mg PO DAILY 12/07/16 02/01/17 Tamsulosin [Flomax] 0.4 mg PO HS 12/07/16 02/01/17 Biotin 5 mg PO DAILY 12/25/16 02/01/17 Multivitamins, Thera [Multivitamin 1 tab PO DAILY 12/25/16 02/01/17 (formulary)] Diazepam [Valium] 5 mg PO TID PRN 01/15/17 02/01/17 Green Tea Tablet 1 tab PO DAILY 01/15/17 02/01/17 Mirtazapine [Remeron] 45 mg PO HS 01/15/17 02/01/17 Previous Rx's Medication Instructions Recorded Aspirin [Adult Low Dose Aspirin EC] 81 mg PO DAILY 30 Days 10/21/16 Simvastatin [Zocor] 40 mg PO HS 30 Days 10/21/16 Ibuprofen [Motrin] 800 mg PO Q8HR PRN #30 tab 01/15/17 Allergies Allergy/AdvReac Type Severity Reaction Status Date / Time quetiapine [From Seroquel] Allergy Unknown Verified 02/01/17 09:19 Review of Systems ROS Other: All systems not noted in ROS Statement are negative. <Renae Jha - Last Filed: 01/15/17 16:37> ROS Other: All systems not noted in ROS Statement are negative. <Omer Quiroz - Last Filed: 03/01/17 14:50> ROS Statement: Those systems with pertinent positive or pertinent negative responses have been documented in the HPI. Past Medical History Past Medical History: Hypertension, Seizure Disorder Additional Past Medical History / Comment(s): chronic back pain, herniated disc , kidney stone, LAST SEIZURE 07/31/16 History of Any Multi-Drug Resistant Organisms: None Reported Past Surgical History: Hernia Repair, Orthopedic Surgery Additional Past Surgical History / Comment(s): cervical fusion ACDF 2009,carpel tunnel, lt knee arthroscopic surgery, polyp removal, hemorrhage surgery hemorrhoid surgery, rectal warts, sinus surgery Past Anesthesia/Blood Transfusion Reactions: No Reported Reaction Past Psychological History: Anxiety, Depression Smoking Status: Current every day smoker Past Alcohol Use History: None Reported Additional Past Alcohol Use History / Comment(s): STARTED SMOKING AT AGE 9 SMOKES 1 PPD Past Drug Use History: None Reported Additional Drug Use History / Comment(s): QUIT MARIJUANA OCT 2016 - Past Family History Mother Family Medical History: Hyperlipidemia, Hypertension, Osteoarthritis (OA) Additional Family Medical History / Comment(s): Mom is alive at 70 years of age Father Family Medical History: Cancer, Liver Disease Additional Family Medical History / Comment(s): Dad at age 60 from liver cancer, hepatitis C, cirrhosis. Sister(s) Family Medical History: No Reported History Daughter(s) Family Medical History: No Reported History Son(s) Family Medical History: No Reported History Additional Family Medical History / Comment(s): Patient states he has 4 sisters that are healthy. <Renae Jha - Last Filed: 01/15/17 16:37> General Exam Limitations: physical limitation General appearance: alert, in no apparent distress Head exam: Present: atraumatic, normocephalic Eye exam: Present: normal appearance, PERRL, EOMI Pupils: Present: normal accommodation Neck exam: Present: normal inspection Respiratory exam: Present: normal lung sounds bilaterally Cardiovascular Exam: Present: regular rate, normal rhythm Extremities exam: Present: other (Left lower extremity: Patient does have full range of motion however with knee flexion he does have increased pain. On visual inspection there does appear to be some mild edema superior to the patella. There is no ecchymosis abrasion or laceration present. Special testing was done and there was negative laxity with valgus and varus pressure. Negative anterior drawer test. Right lower extremity within normal limits.) Neurological exam: Present: alert, oriented X3, CN II-XII intact Psychiatric exam: Present: normal affect, normal mood Skin exam: Present: warm, dry, intact <Renae Jha - Last Filed: 01/15/17 16:37> Medical Decision Making - Radiology Data Radiology results: report reviewed (Negative x-ray, negative dislocation, effusion,), image reviewed (no fracture, effusion, dislocation was noted.) <Renae Jha - Last Filed: 01/15/17 16:37> <Omer Quiroz - Last Filed: 03/01/17 14:50> - Medical Decision Making Differential male presented to the ER with worsening left knee pain. He is status post a meniscal repair in 2003 for the past month he states that his knee has been bothering him with increasing pain today. It all questions were answered and patient was agreeable with treatment plan. 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 I gave him Motrin 800 to take up to 3 times a day to help with the pain and inflammation. does appear that there may be some mild edema superior to the patella. An x-ray was ordered to evaluate the joint space. The x-ray revealed no effusion, dislocation, fracture at this time. The patient was placed in an Tomás wrap to help with compression. It was recommended for him to rest, ice, compress, elevate. He is also to follow-up with his primary care physician and orthopedics if the pain does not improve or worsens. (Renae Jha) Disposition Time of Disposition: 16:41 <Renae Jha - Last Filed: 01/15/17 16:37> <Omer Quiroz - Last Filed: 03/01/17 14:50> Clinical Impression: Strain of left knee Disposition: HOME SELF-CARE Condition: Good Instructions: Knee Pain (ED) Additional Instructions: Recommend follow-up with primary care and orthopedics. To return to ER if any worsening symptoms or concerns. Prescriptions: Ibuprofen [Motrin] 800 mg PO Q8HR PRN #30 tab PRN Reason: Pain Referrals: Cassie Evans MD [Primary Care Provider] - 1-2 days Geoff Crowe MD [STAFF PHYSICIAN] - 1-2 days
--- NOTE | 2017-01-15 16:06 | XR ---
EXAMINATION TYPE: XR knee complete LT DATE OF EXAM: 01/15/2017 3:58 PM COMPARISON: NONE HISTORY: Pain history of meniscal repair TECHNIQUE: 3 view left knee FINDINGS: No acute fracture or dislocation is evident. Joint spaces preserved. No joint effusion is e vident. Soft tissues are normal. IMPRESSION: 1. Normal three-view left knee
== END 2017-01-15 16:23 | disposition home or self-care (01) ==
LOC: EC 14:40
DX: S86.912A Strain of unspecified muscle(s) and tendon(s) at lower leg level, left leg, initial encounter (principal); F32.9 Major depressive disorder, single episode, unspecified; F41.9 Anxiety disorder, unspecified; I10 Essential (primary) hypertension; F17.200 Nicotine dependence, unspecified, uncomplicated; Z98.890 Other specified postprocedural states; Z79.899 Other long term (current) drug therapy; Z88.8 Allergy status to other drugs, medicaments and biological substances
CPT/HCPCS: 99283

== ENCOUNTER 2017-02-01 08:44 | Day surgery (SDC) | payer OTHER ==
[2017-02-01 09:19] VITALS: TEMP 97.7
[2017-02-01] MEDS ORDERED: LACTATED RINGERS 1,000 ML IV ONE (09:25)
[2017-02-01] MEDS ORDERED: TRIAMCINOLONE ACETONIDE 40 MG/ML 1 ML VIAL ONE (09:33)
[2017-02-01] MEDS ORDERED: IOHEXOL 180 MG/ML 1 ML ML ONE (09:33)
[2017-02-01] MEDS ORDERED: fentaNYL (PF) 50 MCG/ML 2 ML AMP ONE (09:33)
[2017-02-01] MEDS ORDERED: BUPIVACAINE (PF) 0.25% 30 ML VIAL ONE (09:33)
[2017-02-01] MEDS ORDERED: MIDAZOLAM 2 MG/2 ML VIAL ONE (09:33)
--- NOTE | 2017-02-01 09:56 | P.PCN ---
Date of Procedure: 02/01/17 Preoperative Diagnosis: Left lumbar radiculopathy Postoperative Diagnosis: Same as above Procedure(s) Performed: Lumbar epidural steroid injection under fluoroscopic guidance Anesthesia: other (Moderate sedation with IV fentanyl and Versed) Surgeon: Shivani Kan Pathology: none sent Condition: stable Disposition: PACU Description of Procedure: The patient was seen in preoperative holding area consent was obtained and was brought into the procedure room and placed in prone position. Skin was prepped with Betadine 3 and draped in a sterile manner. Lidocaine 1% was used to numb the skin up at the target point that was at the L4 5 level in the left paramedian approach. I used 20-gauge 3-1/2 inch Touhy epidural needle with loss -of-resistance to air to identify the epidural space. There was positive loss of resistance to air negative aspiration for any CSF or blood negative paresthesia at about 8 cm from skin. Then injected 1 mL of Omnipaque which showed typical epidurogram with AP and lateral views of fluoroscopy. After that I injected 40 mg of Kenalog was 2 MLS of Marcaine 0.25% +4 MLS of posterior free normal saline to a total volume of 7 MLS in epidural space. Patient tolerated the procedure well.
[2017-02-01] MEDS ORDERED: LACTATED RINGERS 1,000 ML IV SCH (10:00)
[2017-02-01] MEDS ORDERED: IV FLUID CONTINUATION 1,000 ML IV ONE (10:02)
--- NOTE | 2017-02-01 10:04 | FL ---
EXAMINATION TYPE: FL guided pain mgmt statistic DATE OF EXAM: 02/01/2017 9:59 AM HISTORY: Pain lumbar epidural inj. dr huston. 5 sec fl time. 2 pics scanned
[2017-02-01 10:24] VITALS: RESP 16
[2017-02-01 10:40] VITALS: BP 108/75; PULSE 88
== END 2017-02-01 10:30 | disposition home or self-care (01) ==
LOC: ORPAIN 08:44
PROVIDERS: ATTEND Anesthesiology
DX: M54.16 Radiculopathy, lumbar region (principal); Z88.8 Allergy status to other drugs, medicaments and biological substances
CPT/HCPCS: 62323; 99152; J2250; J3301; Q9965; J3010

== ENCOUNTER → 2017-02-22 | Outpatient (CLI) | payer OTHER ==
--- NOTE | 2017-02-23 09:49 | MM ---
Reason for exam: clinical finding. History: Family history of breast cancer in sister at age 43. Took other hormone beginning at age 39. Physical Findings: Nurse Summary: 1.5 cm nodule in the right breast at 1:30 (nurse braeden). MG Diagnostic Mammo w CAD ROCIO Bilateral CC and MLO view(s) were taken. The breast tissue is almost entirely fat. There is no discrete abnormality. These results were verbally communicated with the patient and result sheet given to the patient on 02/22/17. ASSESSMENT: Incomplete: need additional imaging evaluation, BI-RAD 0 RECOMMENDATION: Ultrasound of the right breast. (palpable abnormality)
--- NOTE | 2017-02-23 09:50 | USB ---
Reason for exam: additional evaluation requested from abnormal screening. History: Family history of breast cancer in sister at age 43. Took other hormone beginning at age 39. US Breast Limited RT Right breast ultrasound demonstrates a 15 x 7 x 17mm oval, hyperechoic lesion in the anterior chest, correlates with benign lipoma on ultrasound and mammogram appearence. These results were verbally communicated with the patient and result sheet given to the patient on 02/22/17. ASSESSMENT: Benign, BI-RAD 2 RECOMMENDATION: Clinical management of the right breast. Manage patient on a clinical basis.
== END | disposition home or self-care (01) ==
LOC: RADMAMWWP 08:52
PROVIDERS: ATTEND Family Medicine
DX: N63 Unspecified lump in breast (principal); R92.8 Other abnormal and inconclusive findings on diagnostic imaging of breast
CPT/HCPCS: 76642; G0204

== ENCOUNTER → 2017-03-15 | Outpatient (CLI) | payer OTHER ==
[2017-03-15 15:20] VITALS: BP 116/82; PULSE 101; RESP 16; TEMP 98
--- NOTE | 2017-03-15 16:03 | P.CONS ---
History of Present Illness - Reason for Consult Consult date: 03/15/17 - History of Present Illness This is a follow-up visit for this 41 years old male with a chronic history of severe low back pain, patient had MRI of the lumbar spine done August 2016 , and showed patient had multilevel disc desiccation at L3 4 L4 5 and also patient had lumbar facet arthropathy, we have done lumbar epidural steroid injections 3, patient reported that he had no benefit from it, he continued to have severe low back pain, with radiation to the posterior aspect of his left lower extremity, he denies any motor or sensory deficit, no fever or night sweats and no change in the bowel movement or urination, currently is taking Motrin 800 mg every 8 hours t Tylenol# 3 every 4 hours , Cymbalta 60 mg daily and volume 5 mg 3 times a day, denies any side effect of the medication he denies any excessive drowsiness or sleepiness Past Medical History Past Medical History: Hypertension, Seizure Disorder Additional Past Medical History / Comment(s): chronic back pain, herniated disc , kidney stone, LAST SEIZURE 07/31/16 History of Any Multi-Drug Resistant Organisms: None Reported Past Surgical History: Hernia Repair, Orthopedic Surgery Additional Past Surgical History / Comment(s): cervical fusion ACDF 2009,carpel tunnel, lt knee arthroscopic surgery, polyp removal, hemorrhage surgery hemorrhoid surgery, rectal warts, sinus surgery Past Anesthesia/Blood Transfusion Reactions: No Reported Reaction Past Psychological History: Anxiety, Depression Smoking Status: Current every day smoker Past Alcohol Use History: None Reported Additional Past Alcohol Use History / Comment(s): STARTED SMOKING AT AGE 9 SMOKES 1 PPD Past Drug Use History: None Reported Additional Drug Use History / Comment(s): QUIT MARIJUANA OCT 2016 - Past Family History Mother Family Medical History: Hyperlipidemia, Hypertension, Osteoarthritis (OA) Additional Family Medical History / Comment(s): Mom is alive at 70 years of age Father Family Medical History: Cancer, Liver Disease Additional Family Medical History / Comment(s): Dad at age 60 from liver cancer, hepatitis C, cirrhosis. Sister(s) Family Medical History: No Reported History Daughter(s) Family Medical History: No Reported History Son(s) Family Medical History: No Reported History Additional Family Medical History / Comment(s): Patient states he has 4 sisters that are healthy. Medications and Allergies Home Medications Medication Instructions Recorded Confirmed Type Acetaminophen-Codeine 300-30mg 1 tab PO Q4H PRN 12/07/16 02/01/17 History [Tylenol #3] DULoxetine HCL [Cymbalta] 60 mg PO DAILY 12/07/16 02/01/17 History Tamsulosin [Flomax] 0.4 mg PO HS 12/07/16 02/01/17 History Biotin 5 mg PO DAILY 12/25/16 02/01/17 History Multivitamins, Thera [Multivitamin 1 tab PO DAILY 12/25/16 02/01/17 History (formulary)] Diazepam [Valium] 5 mg PO TID PRN 01/15/17 02/01/17 History Green Tea Tablet 1 tab PO DAILY 01/15/17 02/01/17 History Mirtazapine [Remeron] 45 mg PO HS 01/15/17 02/01/17 History Allergies Allergy/AdvReac Type Severity Reaction Status Date / Time quetiapine [From Seroquel] Allergy Unknown Verified 03/15/17 15:09 Physical Exam Vitals: Vital Signs Temp Pulse Resp BP Pulse Ox 03/15/17 15:13 98.0 F 101 H 16 116/82 96 Physical Examinations : 1-Constitutiona : Cooperative , not in acute distress . 2-HEENT : nech ; supple , no Lymphadenopathy , normal thyroid size . eyes : no ptosis , no icterus, no photophobia . ENT : normal of hearing , normal oropharynx , no Thrush . 3- Respiratory : Chest clear to auscultations Bilaterally , no wheezing , no Rhonchi . 4- Cardiovascular : regular rate and rhythem , S1 , S2 , no S3 , no S4. 5- Gastrointestinal : abdomen soft no tenderness , bowel sounds positive all four quadrents , no organomegally . 6- Genitourinary : Defferred . 7- neurologic : Cranial nerve II to XII intact , no focal neurological deffecit . 8-psychatric : alert , oriented X 3 , appropriate affect , intact judgment and insight . 9-Lymphatic : no Lymphadenopathy . 10- musculoskeltal : , Lumber spine = normal moter stegnth lower extremities ,thigh and legs .5/5 Right , 4/5 Left deep tendon reflexes : normal Knee Jerk , normal ankle Jerk . positive lumber facet Loading Test left side strait leg raising test positive at 30 degree ,LT , Fabere test positive LT ., Negative right Sever tenderness over the Sacroiliac joint on the Left side Results Labs: MRI lumbar spine done at [facility] August 2016 disc this condition at the L5-S1 and L3 4 and 45, and lumbar facet arthropathy throughout the lumbar spine Assessment and Plan Plan: Assessment and plan = - Chronic low back pain secondary to lumbar degenerative disc disease , lumbar spondylosis with facet arthropathy without myelopathy , and left sacroiliitis Status post lumbar epidural steroid injections 3 , he had no benefit from it - diagnoses, prognosis, and treatment options including but not limited to physical therapy, surgical interventions, interventional therapies and medication management including narcotics and adjuvant medication were discussed with the patient and all questions answered to the patient's satisfaction. -medication refile = patient getting his medication refilled from his primary care (Motrin 800 mg every 8 hours/Tylenol 3/Cymbalta/valume ) He could benefit from the Neurontin will start him on 300 mg daily at bedtime increased gradually to 300 mg 3 times a day -procedure= patient could benefit from left-sided medial branch block at L3/L4 5/L5-S1 , and from left sacroiliac joint steroid injection She had a good result after the injection then he could be good candidate for radiofrequency ablation of the medial branch lumbar area, and he had no benefit ,then he should consider surgical interventions Time with Patient: Less than 30
== END ==
LOC: PNWHC3 14:22
PROVIDERS: ATTEND Specialist
DX: M51.36 Other intervertebral disc degeneration, lumbar region (principal); M47.816 Spondylosis without myelopathy or radiculopathy, lumbar region; M46.86 Other specified inflammatory spondylopathies, lumbar region; M46.1 Sacroiliitis, not elsewhere classified; G89.29 Other chronic pain; Z79.891 Long term (current) use of opiate analgesic
CPT/HCPCS: 99211

== ENCOUNTER 2017-03-22 10:00 | Day surgery (SDC) | payer OTHER ==
[2017-03-20 13:43] VITALS: BMI 29.2
[2017-03-22 09:26] VITALS: TEMP 98.9
[~2017-03-22 10:00] MED LIST: BUPIVACAINE (PF) 0.5% 30 ML VIAL ONE; DEXAMETHASONE SOD PHOS (MDV) 100 MG/10 ML VIAL ONE; LACTATED RINGERS 1,000 ML IV SCH; LIDOCAINE 1% 20 ML VIAL (10MG/ML) FOR IV START INTRADERMA ONE; MIDAZOLAM 2 MG/2 ML VIAL ONE; fentaNYL (PF) 50 MCG/ML 2 ML AMP ONE
[2017-03-22] MEDS ORDERED: IV FLUID CONTINUATION 1,000 ML IV ONE (10:22)
[2017-03-22 10:25] VITALS: RESP 18
--- NOTE | 2017-03-22 10:27 | P.PCN ---
Date of Procedure: 03/22/17 Preoperative Diagnosis: Postoperative Diagnosis: Procedure(s) Performed: PREOPERATIVE DIAGNOSIS : 1- Lumbar spondylosis with Facet Arthropathy without myelopathy . 2- Lumber degenerative disc disease 3-left sacroiliitis POSTOPERATIVE DIAGNOSIS: 1- Lumbar spondylosis with Facet Arthropathy without myelopathy . 2- Lumber degenerative disc disease 3- left sacroiliitis. PROCEDURE: 1-Diagnostic left side , L4 -5 , and L5-S1 medial branch block under fluoroscopy. 2-left sacroiliac joint steroid injections under fluoroscopy guidance ANESTHESIA: Local with 1% lidocaine 6 ml ; IV sedation with Versed 2 mg and Fentanyl 150 mcg. EBL: Minimal COMPLICATION: None. IV FLUIDS: 100 mL of normal saline. PROCEDURE INDICATION: Chronic low back pain secondary to Facet arthropathy unresponsive to conservative treatment. PROCEDURE DESCRIPTION: the patient was seen and identified in the preop holding area , risks and benefits and possible complications of the procedure and alternative were discussed with the patient, and the patient agreed to proceed with the procedure and signed the consent IV was started and vital signs monitored during the procedure and fluoroscopy was used to maximize the benefit and accuracy of the needle placement, and sedation was given to decrease patient anxiety, patient was taken to the procedure room and placed in prone position vital signs monitored in the back prepped with chlorhexidine X3 then under strict sterile technique using a right oblique fluoroscopy ,the junction of the transverse process and the superior articulating process of the left L4- 5, and L5-S1 vertebra which corresponding to the fluoroscopy image of the eye of the Shashi dog on the block side for the medial branches and subsequently , after local infiltration of skin and subcu tissuies with lidocaine 1% one mL at each level ,then 25-gauge Quincke-type needles , 2 needle was used , each one of them placed at the junction of the base of the transverse process and the superior articular process at the appropriate level, and the needle was advanced until the periosteum contacted, needle placement confirmed with AP oblique and lateral view and after appropriate needle placement confirmed, and after negative aspiration for heme and CSF and there was no paresthesia 1 mL of Marcaine 0.5% mixed with Dexa , then half mL injected at each level after negative aspiration the needle subsequently removed intact. Procedure description for the sacroiliac joints= the fluroscopy camera was placed in the contralateral oblique view on the left sacroiliac joint and the lower part of the joint was identified, local infiltration of the skin and subcutaneous tissue with lidocaine 1% 2 mL then a 25-gauge Quincke-type spinal needle advanced slowly under fluoroscopy and placed in the posterior and inferior border of the left sacroiliac joint, placement confirmed with AP and lateral view, and after appropriate needle placement confirmed and after negative aspiration for heme and CSF and there was no paresthesia during the injection, 3 ml of Marcaine 0.5% and 10 mg of Dexamethasone injected after negative aspiration, At the end of the procedure and the needles removed and a bandage applied after the skin was cleaned the cleaning solution patient taken to recovery room in stable condition and monitors in the recovery room for 20-30 minutes and discharged home in stable condition after discharge criteria met and patient will follow up with the pain clinic in 2-4 weeks Implants: Indications for Procedure: Operative Findings: Description of Procedure:
[2017-03-22 10:40] VITALS: BP 124/79; PULSE 81
--- NOTE | 2017-03-22 10:42 | FL ---
EXAMINATION TYPE: FL guided pain mgmt statistic DATE OF EXAM: 03/22/2017 HISTORY: Flouroscopy time 14 seconds of fluoroscopy provided. IMPRESSION: 1. Fluoroscopy time.
== END 2017-03-22 10:54 | disposition home or self-care (01) ==
LOC: ORPAIN 10:00
PROVIDERS: ATTEND Specialist
DX: G89.29 Other chronic pain (principal); M51.36 Other intervertebral disc degeneration, lumbar region; M47.816 Spondylosis without myelopathy or radiculopathy, lumbar region; M46.96 Unspecified inflammatory spondylopathy, lumbar region; M46.1 Sacroiliitis, not elsewhere classified; I10 Essential (primary) hypertension; G40.909 Epilepsy, unspecified, not intractable, without status epilepticus; F41.9 Anxiety disorder, unspecified; F32.9 Major depressive disorder, single episode, unspecified; F17.200 Nicotine dependence, unspecified, uncomplicated; Z88.8 Allergy status to other drugs, medicaments and biological substances; Z79.899 Other long term (current) drug therapy; Z98.1 Arthrodesis status; Z82.49 Family history of ischemic heart disease and other diseases of the circulatory system
CPT/HCPCS: 64493; 64494; 99152; J2250; J3010; J1100; G0260; 27096

== ENCOUNTER 2017-05-01 07:55 | Day surgery (SDC) | payer OTHER ==
[2017-04-25 14:32] VITALS: BMI 28.5
[2017-05-01] MEDS ORDERED: LACTATED RINGERS 1,000 ML IV SCH (08:30)
[2017-05-01 08:31] VITALS: RESP 18; TEMP 98
[2017-05-01] MEDS ORDERED: LACTATED RINGERS 1,000 ML IV ONE (08:31)
[2017-05-01] MEDS ORDERED: LIDOCAINE 1% 20 ML VIAL (10MG/ML) FOR IV START INTRADERMA ONE (08:38)
[2017-05-01] MEDS ORDERED: IV FLUID CONTINUATION 1,000 ML IV ONE (09:54)
[2017-05-01 09:59] VITALS: PULSE 62
--- NOTE | 2017-05-01 10:04 | FL ---
FLUOROSCOPY 5 seconds of fluoroscopy time were utilized during sacroiliac joint injection. No images document the procedure.
[2017-05-01 10:16] VITALS: BP 106/66
--- NOTE | 2017-05-01 10:51 | P.PCN ---
Date of Procedure: 05/01/17 Preoperative Diagnosis: Left sacroiliitis Postoperative Diagnosis: Same as above Procedure(s) Performed: Left sacroiliac joint steroid injection under fluoroscopic guidance Implants: Anesthesia: other (Moderate sedation with IV fentanyl and Versed) Surgeon: Shivani Kan Pathology: none sent Condition: stable Disposition: PACU Indications for Procedure: Operative Findings: Description of Procedure: The patient was seen in the preop holding area he has lower back pain in the lumbar area and in the sacral area with his sacral area pain is more intense than his lower back pain on the left side. His lumbar medial branch block and sacroiliac joint injection but to avoid any confusion of the results I decided to do only one procedure which is left sacroiliac joint steroid injection under fluoroscopic guidance. The patient was brought into the procedure when placed in prone position. Skin was prepped with Betadine 3 and draped in a sterile manner. Lidocaine 1% was used to numb the skin up at the target point was chosen as follows: The left sacroiliac joint was identified on the AP view of fluoroscopy then the C-arm was tilted to the contralateral side by about 20 to the right oblique position to superimpose the anterior and posterior joint lines on each other and the target point was at the inferior third of this unified joint line. I used 22-gauge 3-1/2 inch Quincke spinal needle for this procedure and after placing the needle inside the sacroiliac joint then injected 40 mg of Kenalog +2 MLS of Marcaine 0.5%. Patient tolerated procedure well.
== END 2017-05-01 10:45 | disposition home or self-care (01) ==
LOC: ORPAIN 07:55
PROVIDERS: ATTEND Anesthesiology
DX: M46.1 Sacroiliitis, not elsewhere classified (principal); Z79.899 Other long term (current) drug therapy; Z88.8 Allergy status to other drugs, medicaments and biological substances
CPT/HCPCS: 99152; 99153; J2250; J3301; J3010; G0260; 27096

== ENCOUNTER 2017-05-23 10:53 | Emergency (ER) | payer OTHER ==
[2017-05-23 11:10] VITALS: BP 124/84
[2017-05-23] MEDS ORDERED: KETOROLAC 60 MG/2 ML VIAL IM STA (11:23)
--- NOTE | 2017-05-23 11:29 | ED ---
General Adult HPI - General Chief complaint: Extremity Problem,Nontraumatic Stated complaint: Leg pains Time Seen by Provider: 05/23/17 11:11 Source: patient, RN notes reviewed Mode of arrival: ambulatory Limitations: no limitations - History of Present Illness Initial comments: 41-year-old male presents to the emergency Department chief complaint of flareup of his restless leg syndrome. Patient states he was diagnosed with restless leg about 6 months ago but was never started on any medications. Patient states she's now having a flareup of his symptoms so he was concerned. Patient states he is not having any weakness in the legs just hurts to walk and they are twitching at night. Patient states he takes Tylenol threes for his chronic back pain and sees a pain specialist for this. Patient states that he was wondering if there is anything that we can do to help him with his restless leg syndrome. Patient denies any recent fever, chills, shortness of breath, chest pain, back pain, abdominal pain, nausea vomiting, numbness or tingling, dysuria or hematuria, constipation or diarrhea, headaches or visual changes, or any other current symptoms. - Related Data Home Medications Medication Instructions Recorded Confirmed Acetaminophen-Codeine 300-30mg 1 tab PO Q4H PRN 12/07/16 05/22/17 [Tylenol #3] Multivitamins, Thera [Multivitamin 1 tab PO DAILY 12/25/16 05/22/17 (formulary)] Diazepam [Valium] 5 mg PO TID PRN 01/15/17 05/22/17 Mirtazapine [Remeron] 45 mg PO HS 01/15/17 05/22/17 Gabapentin [Neurontin] 300 mg PO TID 03/15/17 05/22/17 Divalproex Sodium [Depakote] 1,000 mg PO HS 03/20/17 05/22/17 Methocarbamol [Robaxin] 750 mg PO TID PRN 03/20/17 05/22/17 DULoxetine HCL [Cymbalta] 60 mg PO DAILY 04/25/17 05/22/17 traZODone HCL 100 mg PO HS 04/25/17 05/22/17 Tamsulosin HCl [Flomax] 0.4 mg PO DAILY 05/22/17 05/22/17 Aspirin [Adult Low Dose Aspirin EC] 81 mg PO HS 05/23/17 05/23/17 Previous Rx's Medication Instructions Recorded Simvastatin [Zocor] 40 mg PO HS 30 Days 10/21/16 Allergies Allergy/AdvReac Type Severity Reaction Status Date / Time quetiapine [From Seroquel] Allergy see note Verified 05/23/17 11:09 Review of Systems ROS Statement: Those systems with pertinent positive or pertinent negative responses have been documented in the HPI. ROS Other: All systems not noted in ROS Statement are negative. Past Medical History Past Medical History: GERD/Reflux, Hyperlipidemia, Osteoarthritis (OA), Seizure Disorder Additional Past Medical History / Comment(s): chronic back pain, herniated disc , kidney stone, LAST SEIZURE 07/31/16 History of Any Multi-Drug Resistant Organisms: None Reported Past Surgical History: Hernia Repair, Orthopedic Surgery Additional Past Surgical History / Comment(s): cervical fusion ACDF 2009,carpel tunnel, lt knee arthroscopic surgery, polyp removal, hemorrhage surgery hemorrhoid surgery, rectal warts, sinus surgery Past Anesthesia/Blood Transfusion Reactions: No Reported Reaction Past Psychological History: Anxiety, Depression Smoking Status: Current every day smoker Past Alcohol Use History: None Reported Past Drug Use History: None Reported - Past Family History Mother Family Medical History: Hyperlipidemia, Hypertension, Osteoarthritis (OA) Additional Family Medical History / Comment(s): Mom is alive at 70 years of age Father Family Medical History: Cancer, Liver Disease Additional Family Medical History / Comment(s): Dad at age 60 from liver cancer, hepatitis C, cirrhosis. Sister(s) Family Medical History: No Reported History Daughter(s) Family Medical History: No Reported History Son(s) Family Medical History: No Reported History Additional Family Medical History / Comment(s): Patient states he has 4 sisters that are healthy. General Exam Limitations: no limitations General appearance: alert, in no apparent distress Head exam: Present: atraumatic, normocephalic, normal inspection Eye exam: Present: normal appearance, PERRL, EOMI. Absent: scleral icterus, conjunctival injection, periorbital swelling ENT exam: Present: normal exam, mucous membranes moist Neck exam: Present: normal inspection. Absent: tenderness, meningismus, lymphadenopathy Respiratory exam: Present: normal lung sounds bilaterally. Absent: respiratory distress, wheezes, rales, rhonchi, stridor Cardiovascular Exam: Present: regular rate, normal rhythm, normal heart sounds. Absent: systolic murmur, diastolic murmur, rubs, gallop, clicks Extremities exam: Present: normal inspection, full ROM, normal capillary refill. Absent: tenderness, pedal edema, joint swelling, calf tenderness Back exam: Present: normal inspection, full ROM. Absent: tenderness Neurological exam: Present: alert, oriented X3 Psychiatric exam: Present: normal affect, normal mood Skin exam: Present: warm, dry, intact, normal color. Absent: rash Course Vital Signs 05/23/17 11:06 Temperature 98.2 F Pulse Rate 75 Respiratory 16 Rate Blood Pressure 124/84 O2 Sat by Pulse 100 Oximetry Medical Decision Making - Medical Decision Making 41-year-old male presents emergency department with a chief complaint of flareup of his restless leg. This time we discussed these follow-up with his family doctor for a medication for his restless leg. We did discuss return parameters to the emergency department. We discussed all the patient's questions. He stated the Gavin is significant plan. He will be discharged home. Disposition Clinical Impression: Restless leg syndrome Disposition: HOME SELF-CARE Condition: Stable Instructions: Restless Legs Syndrome (ED) Additional Instructions: Please use medication as discussed. Please follow up with family doctor if symptoms have not improved over the next two days. Please return to the emergency room if your symptoms increase or worsen or for any other concerns. Referrals: Cassie Evans MD [Primary Care Provider] - 1-2 days Time of Disposition: 11:32
[2017-05-23 11:57] VITALS: PULSE 72; RESP 20; TEMP 98.7
== END 2017-05-23 11:56 | disposition home or self-care (01) ==
LOC: EC 10:53
DX: G25.81 Restless legs syndrome (principal); K21.9 Gastro-esophageal reflux disease without esophagitis; E78.5 Hyperlipidemia, unspecified; M19.90 Unspecified osteoarthritis, unspecified site; G40.909 Epilepsy, unspecified, not intractable, without status epilepticus; F32.9 Major depressive disorder, single episode, unspecified; F41.9 Anxiety disorder, unspecified; F17.200 Nicotine dependence, unspecified, uncomplicated; Z79.82 Long term (current) use of aspirin; Z79.899 Other long term (current) drug therapy; Z88.8 Allergy status to other drugs, medicaments and biological substances
CPT/HCPCS: 99283; 96372; J1885

== ENCOUNTER 2017-05-25 07:49 | Day surgery (SDC) | payer OTHER ==
[2017-05-22 10:27] VITALS: BMI 28.1
[~2017-05-25 07:49] MED LIST changes: -BUPIVACAINE (PF) 0.5% 30 ML VIAL ONE; -DEXAMETHASONE SOD PHOS (MDV) 100 MG/10 ML VIAL ONE; -LIDOCAINE 1% 20 ML VIAL (10MG/ML) FOR IV START INTRADERMA ONE; -MIDAZOLAM 2 MG/2 ML VIAL ONE; -fentaNYL (PF) 50 MCG/ML 2 ML AMP ONE
[2017-05-25 08:05] VITALS: RESP 16; TEMP 98.1
[2017-05-25] MEDS ORDERED: LIDOCAINE 1% 20 ML VIAL (10MG/ML) FOR IV START INTRADERMA ONE (08:13)
[2017-05-25] MEDS ORDERED: IV FLUID CONTINUATION 1,000 ML IV ONE (09:09)
--- NOTE | 2017-05-25 09:11 | P.PCN ---
Date of Procedure: 05/25/17 Preoperative Diagnosis: Lumbar spondylosis without myelopathy with left lower back pain Postoperative Diagnosis: Same as above Procedure(s) Performed: Left lumbar medial branch block under fluoroscopic guidance for levels: L3 4, L4 -L5, and L5-S1 under fluoroscopic guidance Implants: Anesthesia: other (Moderate conscious sedation with IV Versed only) Surgeon: Shivani Kan Pathology: none sent Condition: stable Disposition: PACU Indications for Procedure: Operative Findings: Description of Procedure: The patient was seen in preoperative holding area consent was obtained then he was brought into the procedure 1 placed in prone position. Skin was prepped with ChloraPrep and draped in a sterile manner. Lidocaine 1% was used to numb the skin up at the target points that were chosen as follows: For the L5-S1 level which corresponds to the dorsal ramus of L5 the target point was at the superior medial aspect of the sacral ala on the AP view of fluoroscopy, and for the L2-L3 and L4 medial branches the target points were the connection between the transverse process and the superior articular process of L3-L4 and L5 vertebra respectively on the left oblique view of fluoroscopy. I used 22-gauge 3-1/2 inch Quincke spinal needles for this procedure and after contacting bone at the target points mentioned above I injected 1 mL of Marcaine 0.5%. Steroids were Not used for this procedure neither IV fentanyl. Patient tolerated procedure well/
[2017-05-25 09:32] VITALS: BP 114/74; PULSE 66
--- NOTE | 2017-05-25 09:51 | FL ---
Fluoroscopy HISTORY: Pain 6 seconds fluoroscopy time supplied to the referring clinician. 3 intraoperative C-arm images docume nt the procedure. See dictated report from anesthesia.
== END 2017-05-25 09:55 | disposition home or self-care (01) ==
LOC: ORPAIN 07:49
PROVIDERS: ATTEND Anesthesiology
DX: M47.816 Spondylosis without myelopathy or radiculopathy, lumbar region (principal); Z88.8 Allergy status to other drugs, medicaments and biological substances
CPT/HCPCS: 64493; 64494; 64495; 99152; J2250

== ENCOUNTER 2017-08-22 09:13 | Day surgery (SDC) | payer OTHER ==
[2017-08-18 10:00] VITALS: BMI 28.3
[2017-08-22 09:59] VITALS: RESP 16; TEMP 97.3
--- NOTE | 2017-08-22 10:54 | P.PCN ---
Date of Procedure: 08/22/17 Procedure(s) Performed: . PROCEDURE 1. Cervical epidural steroid injection under fluoroscopic guidance, C7-T1 2. Cervical epidurogram. PREOPERATIVE DIAGNOSIS: 1- Cervical radiculopathy., POSTOPERATIVE DIAGNOSIS: : 1-- Cervical radiculopathy. ANESTHESIA: Local anesthesia with 1% lidocaine and IV sedation with Versed 2 mg and Fentanyl 100 mcg. EBL 0 PROCEDURE INDICATION: The patient with neck pain and radiculitis unresponsive to conservative treatment consents for procedure. PROCEDURE DESCRIPTION / TECHNIQUE: The patient was seen and identified in the preoperative area. Risks, benefits, complications, including but not limited to infections ,bleeding , allergic reactions to the medications ,and not complete pain releife, and alternatives were discussed with the patient, the patient agreed to proceed with the procedure and signed the consent. Patient was taken to the OR and time out was completed. The patient was placed in the prone position on the procedure table. A pillow was placed under the patients chest to increase the cervical interlaminar space. The cervical area was prepped and draped in the usual sterile fashion. Vital signs were closely monitored during the procedure. Conscious sedation was used during the procedure to decrease patients anxiety. Using anterior-posterior fluoroscopy, the C7-T1 interlaminar space was identified and the skin over this site was marked and then infiltrated with 1% lidocaine subcutaneously. Subsequently, a 20-gauge 3-1/2-inch Tuohy epidural needle was inserted and advanced toward the epidural space by means of the `` hanging-drop technique and guided by AP and lateral fluoroscopy. The correct needle position in the epidural space was verified with the injection of 2 mL of the water soluble contrast dye [id number]-180 and observing an excellent epidurogram with the epidural spread of the dye, after negative aspiration for blood and CSF and in the absence of paresthesias. Again after negative aspiration, mixture containing 20 mg Dexamethasone and 2 ml of preservative- free normal saline injected and a washout of epidurogram was seen. Needle was withdrawn intact, skin was cleansed, and bandages were applied. Complications= none. Disposition= patient was placed in supine position and transferred to the recovery room area in stable condition and there was no evidence of upper or lower extremity motor or sensory deficit after the procedure patient was discharged from recovery room after discharge criteria met and home discharge instructions was given by the staff and patient will follow with the pain clinic in 2-4 weeks
--- NOTE | 2017-08-22 11:07 | FL ---
Fluoroscopy HISTORY: Pain 2 seconds fluoroscopy time supplied to the referring clinician. 1 intraoperative C-arm images docume nt the procedure. See dictated report from anesthesia.
[2017-08-22] MEDS ORDERED: IV FLUID CONTINUATION 1,000 ML IV ONE (11:16)
[2017-08-22 11:24] VITALS: BP 113/72; PULSE 65
== END 2017-08-22 11:34 | disposition home or self-care (01) ==
LOC: ORPAIN 09:13
PROVIDERS: ATTEND Specialist
DX: M54.12 Radiculopathy, cervical region (principal); R56.9 Unspecified convulsions; K21.9 Gastro-esophageal reflux disease without esophagitis
CPT/HCPCS: 62321; 99152

== ENCOUNTER 2017-10-19 07:34 | Day surgery (SDC) | payer OTHER ==
[2017-10-11 23:27] VITALS: BMI 27.6
[2017-10-19 07:58] VITALS: RESP 16; TEMP 97.2
[2017-10-19] MEDS ORDERED: LIDOCAINE 1% 20 ML VIAL (10MG/ML) FOR IV START INTRADERMA ONE (08:01)
--- NOTE | 2017-10-19 09:05 | P.PCN ---
Date of Procedure: 10/19/17 Procedure(s) Performed: . PROCEDURE 1. Cervical epidural steroid injection under fluoroscopic guidance, C7-T1 2. Cervical epidurogram. PREOPERATIVE DIAGNOSIS: 1- Cervical Degenerative Disc Diseases 2- Cervical Failed back surgery sundrome 3-cervical spondylosis with cervical Facet arthropathy without myelopathy POSTOPERATIVE DIAGNOSIS: : Same as pre operative Diagnosis . ANESTHESIA: Local anesthesia with 1% lidocaine 3 ml ,and IV sedation with Versed 2 mg EBL 0 PROCEDURE INDICATION: The patient with neck pain , unresponsive to conservative treatment consents for procedure. PROCEDURE DESCRIPTION / TECHNIQUE: The patient was seen and identified in the preoperative area. Risks, benefits, complications, including but not limited to infections ,bleeding , allergic reactions to the medications ,and not complete pain releife, and alternatives were discussed with the patient, the patient agreed to proceed with the procedure and signed the consent. Patient was taken to the OR and time out was completed. The patient was placed in the prone position on the procedure table. A pillow was placed under the patients chest to increase the cervical interlaminar space. The cervical area was prepped and draped in the usual sterile fashion. Vital signs were closely monitored during the procedure. Conscious sedation was used during the procedure to decrease patients anxiety. Using anterior-posterior fluoroscopy, the C7-T1 interlaminar space was identified and the skin over this site was marked and then infiltrated with 1% lidocaine subcutaneously. Subsequently, a 20-gauge 3-1/2-inch Tuohy epidural needle was inserted and advanced toward the epidural space by means of the `` hanging-drop technique and guided by AP and lateral fluoroscopy. The correct needle position in the epidural space was verified with the injection of 2 mL of the water soluble contrast dye [id number] and observing an excellent epidurogram with the epidural spread of the dye, after negative aspiration for blood and CSF and in the absence of paresthesias. Again after negative aspiration, mixture containing 20 mg Dexamethasone and 2 ml of preservative- free normal saline injected and a washout of epidurogram was seen. Needle was withdrawn intact, skin was cleansed, and bandages were applied. Complications= none. Disposition= patient was placed in supine position and transferred to the recovery room area in stable condition and there was no evidence of upper or lower extremity motor or sensory deficit after the procedure patient was discharged from recovery room after discharge criteria met and home discharge instructions was given by the staff and patient will follow with the pain clinic in 2-4 weeks
--- NOTE | 2017-10-19 09:24 | FL ---
EXAMINATION TYPE: FL guided pain mgmt statistic DATE OF EXAM: 10/19/2017 HISTORY: Flouroscopy time 6 seconds of fluoroscopy provided. IMPRESSION: 1. Fluoroscopy time.
[2017-10-19 09:55] VITALS: BP 94/63; PULSE 70
[2017-10-19] MEDS ORDERED: IV FLUID CONTINUATION 1,000 ML IV ONE (10:03)
== END 2017-10-19 10:36 | disposition home or self-care (01) ==
LOC: ORPAIN 07:34
PROVIDERS: ATTEND Specialist
DX: M50.30 Other cervical disc degeneration, unspecified cervical region (principal); M47.812 Spondylosis without myelopathy or radiculopathy, cervical region; M96.1 Postlaminectomy syndrome, not elsewhere classified
CPT/HCPCS: 62321; J2250; J1100; Q9965

== ENCOUNTER 2019-05-06 08:36 | Inpatient (IN) | payer MEDICARE, MEDICAID ==
[2019-05-06] MEDS ORDERED: SODIUM CHLORIDE 0.9% 1,000 ML IV STA (08:37)
[2019-05-06] MEDS ORDERED: ONDANSETRON 4 MG/2 ML VIAL IVP STA (08:58)
[2019-05-06] MEDS ORDERED: KETOROLAC 30 MG/ML 1 ML VIAL IVP STA (08:58)
[2019-05-06] MEDS ORDERED: MORPHINE SULFATE 2 MG/ML SYRINGE IVP ONE (08:58)
[2019-05-06 08:59] LABS: Basophils % (A) 1 %; Eosinophils # (A) 0.3 k/uL (0-0.7); Eosinophils % (A) 5 %; HCT 39.9 % (39.0-53.0); HGB 13.4 gm/dL (13.0-17.5); Lymphocytes # (A) 2.2 k/uL (1.0-4.8); Lymphocytes % (A) 39 %; MCH 30.1 pg (25.0-35.0); MCHC 33.6 g/dL (31.0-37.0); MCV 89.4 fL (80.0-100.0); Mean Platelet Volume 7.2; Monocytes # (A) 0.5 k/uL (0-1.0); Monocytes % (A) 9 %; Neutrophils # (A) 2.6 k/uL (1.3-7.7); Neutrophils % (A) 45 %; Platelet Count 162 k/uL (150-450); RBC 4.46 m/uL (4.30-5.90); RDW 13.7 % (11.5-15.5); WBC 5.6 k/uL (3.8-10.6)
[2019-05-06 09:10] LABS: ALT 24 U/L (21-72); AST 15 U/L (17-59); African American GFR (CKD) >90 (>60 ml/min/1.73 sqM); Albumin 2.9 g/dL (3.5-5.0); Alkaline Phosphatase 53 U/L (38-126); Anion Gap 3 mmol/L; Blood Urea Nitrogen 6 mg/dL (9-20); Calcium 8.1 mg/dL (8.4-10.2); Carbon Dioxide 30 mmol/L (22-30); Chloride 107 mmol/L (98-107); Glucose 92 mg/dL (74-99); Potassium 3.6 mmol/L (3.5-5.1); Sodium 140 mmol/L (137-145); Total Bilirubin 0.3 mg/dL (0.2-1.3)
--- NOTE | 2019-05-06 09:34 | XR ---
EXAMINATION TYPE: XR KUB DATE OF EXAM: 05/06/2019 CLINICAL DATA: 43-year-old male with abdominal pain, [facility] COMPARISON: 12/25/2016 FINDINGS: Lung bases are clear. No evidence for free intraperitoneal air. Scattered small air-fluid levels within the midabdomen. Multiple dilated small bowel loops in the rig ht side of the abdomen measuring 3.3 cm and in the left side of the abdomen measuring 3.4 cm. Scatter ed colonic gas is present with moderate stool burden. Prior L5-S1 interbody device. No evidence for free intraperitoneal air. IMPRESSION: 1. A few scattered air-fluid levels with borderline to mildly dilated small bowel loops measuring up to 3.4 cm. Given the presence of colonic gas, findings are nonspecific and may relate to enteritis or ileus. Early small bowel obstruction difficult to entirely exclude. Radiographic follow-up may be he lpful. 2. No free air. Moderate stool burden.
--- NOTE | 2019-05-06 09:50 | ED ---
Abdominal Pain HPI - General Chief Complaint: Abdominal Pain Stated Complaint: kidney stones Time Seen by Provider: 05/06/19 08:37 Source: patient, EMS, RN notes reviewed Mode of arrival: EMS Limitations: no limitations - History of Present Illness Initial Comments: This a 43-year-old male presents emergency Department with chief complaint of left flank pain. Patient states that he has a history kidney stones has passed multiple kidney stones. Patient states that he's had some decreased urine output. Patient was placed on Flomax for enlarged prostate along with kidney stones. Patient reports no fevers or chills. Patient did have a bowel movement morning with no relief of the symptoms patient states is passing gas. Patient denies any recent abdominal surgeries. Patient does state that he had a history of back surgery by Dr. johnson Patient denies any bowel bladder incontinence or retention. Denies any fevers or chills. Patient also adds that he has depressed, suicidal. Patient states he was suicidal secondary to his ongoing health issues. - Related Data Home Medications Medication Instructions Recorded Confirmed Diazepam [Valium] 10 mg PO TID PRN 01/15/17 05/06/19 Divalproex Sodium [Depakote] 1,000 mg PO HS 03/20/17 05/06/19 Tamsulosin HCl [Flomax] 0.4 mg PO HS 05/22/17 05/06/19 Acetaminophen with Codeine 1 tab PO Q6H PRN 05/06/19 05/06/19 [Tylenol with Codeine #4 Tablet] Amitriptyline HCl [Elavil] 100 mg PO HS 05/06/19 05/06/19 B Complex-Vit C-Vit E-Zinc [Z-Bec] 1 tab PO DAILY 05/06/19 05/06/19 Divalproex Sodium [Depakote] 500 mg PO DAILY 05/06/19 05/06/19 Previous Rx's Medication Instructions Recorded Simvastatin [Zocor] 40 mg PO HS 30 Days tab 10/21/16 Allergies Allergy/AdvReac Type Severity Reaction Status Date / Time No Known Allergies Allergy Verified 05/06/19 08:48 Review of Systems ROS Statement: Those systems with pertinent positive or pertinent negative responses have been documented in the HPI. ROS Other: All systems not noted in ROS Statement are negative. Past Medical History Past Medical History: GERD/Reflux, Hyperlipidemia, Osteoarthritis (OA), Seizure Disorder Additional Past Medical History / Comment(s): Chronic back pain, herniated disc, kidney stone, LAST SEIZURE 07/31/16. History of Any Multi-Drug Resistant Organisms: None Reported Past Surgical History: Hernia Repair, Orthopedic Surgery Additional Past Surgical History / Comment(s): Cervical fusion ACDF 2009, carpel tunnel, left knee arthroscopic surgery, polyp removal, hemorrhage surgery hemorrhoid surgery, rectal warts, sinus surgery, PAIN CLINIC PROCEDURES. Past Anesthesia/Blood Transfusion Reactions: No Reported Reaction Past Psychological History: Anxiety, Depression Smoking Status: Current every day smoker - Past Family History Mother Family Medical History: Hyperlipidemia, Hypertension, Osteoarthritis (OA) Additional Family Medical History / Comment(s): Mom is alive at 70 years of age Father Family Medical History: Cancer, Liver Disease Additional Family Medical History / Comment(s): Dad at age 60 from liver cancer, hepatitis C, cirrhosis. Sister(s) Family Medical History: No Reported History Daughter(s) Family Medical History: No Reported History Son(s) Family Medical History: No Reported History Additional Family Medical History / Comment(s): Patient states he has 4 sisters that are healthy. General Exam Limitations: no limitations General appearance: alert, in no apparent distress Head exam: Present: atraumatic, normocephalic, normal inspection Respiratory exam: Present: normal lung sounds bilaterally. Absent: respiratory distress, wheezes, rales, rhonchi, stridor Cardiovascular Exam: Present: regular rate, normal rhythm, normal heart sounds. Absent: systolic murmur, diastolic murmur, rubs, gallop, clicks GI/Abdominal exam: Present: soft, tenderness (Mild left-sided left flank), normal bowel sounds. Absent: distended, guarding, rebound, rigid Back exam: Present: full ROM, CVA tenderness (L). Absent: normal inspection (Old surgical scar noted lumbar), CVA tenderness (R) Neurological exam: Present: alert, oriented X3, CN II-XII intact, reflexes normal. Absent: motor sensory deficit Skin exam: Present: warm, dry, intact, normal color. Absent: rash Course Vital Signs 05/06/19 08:37 Temperature 97.7 F Pulse Rate 90 Respiratory 17 Rate Blood Pressure 123/75 O2 Sat by Pulse 96 Oximetry Medical Decision Making - Medical Decision Making 43-year-old male presented for abdominal pain, depression. Patient had labs and x-ray,, urinalysis. Labs unremarkable x-ray shows some mild bowel gas pattern possible underlying ileus versus enteritis. Patient's pain is very minimal having normal bowel movements. I do not feel this is related to obstruction. Patient was admitted by EPS for his depression and will be admitted. - Lab Data Result diagrams: 05/06/19 08:48 05/06/19 08:48 Lab Results 05/06/19 05/06/19 05/06/19 Range/Units 08:48 08:48 08:48 WBC 5.6 (3.8-10.6) k/uL RBC 4.46 (4.30-5.90) m/uL Hgb 13.4 (13.0-17.5) gm/dL Hct 39.9 (39.0-53.0) % MCV 89.4 (80.0-100.0) fL MCH 30.1 (25.0-35.0) pg MCHC 33.6 (31.0-37.0) g/dL RDW 13.7 (11.5-15.5) % Plt Count 162 (150-450) k/uL Neutrophils % 45 % Lymphocytes % 39 % Monocytes % 9 % Eosinophils % 5 % Basophils % 1 % Neutrophils # 2.6 (1.3-7.7) k/uL Lymphocytes # 2.2 (1.0-4.8) k/uL Monocytes # 0.5 (0-1.0) k/uL Eosinophils # 0.3 (0-0.7) k/uL Basophils # 0.0 (0-0.2) k/uL Sodium 140 (137-145) mmol/L Potassium 3.6 (3.5-5.1) mmol/L Chloride 107 (98-107) mmol/L Carbon Dioxide 30 (22-30) mmol/L Anion Gap 3 mmol/L BUN 6 L (9-20) mg/dL Creatinine 0.79 (0.66-1.25) mg/dL Est GFR (CKD-EPI)AfAm >90 (>60 ml/min/1.73 sqM) Est GFR (CKD-EPI)NonAf >90 (>60 ml/min/1.73 sqM) Glucose 92 (74-99) mg/dL Calcium 8.1 L (8.4-10.2) mg/dL Total Bilirubin 0.3 (0.2-1.3) mg/dL AST 15 L (17-59) U/L ALT 24 (21-72) U/L Alkaline Phosphatase 53 (38-126) U/L Total Protein 5.0 L (6.3-8.2) g/dL Albumin 2.9 L (3.5-5.0) g/dL Lipase 39 (23-300) U/L Urine Color Urine Appearance (Clear) Urine pH (5.0-8.0) Ur Specific [place] (1.001-1.035) Urine Protein (Negative) Urine Glucose (UA) (Negative) Urine Ketones (Negative) Urine Blood (Negative) Urine Nitrite (Negative) Urine Bilirubin (Negative) Urine Urobilinogen (<2.0) mg/dL Ur Leukocyte Esterase (Negative) Urine Opiates Screen (NotDetected) Ur Oxycodone Screen (NotDetected) Urine Methadone Screen (NotDetected) Ur Propoxyphene Screen (NotDetected) Ur Barbiturates Screen (NotDetected) U Tricyclic Antidepress (NotDetected) Ur Phencyclidine Scrn (NotDetected) Ur Amphetamines Screen (NotDetected) U Methamphetamines Scrn (NotDetected) U Benzodiazepines Scrn (NotDetected) Urine Cocaine Screen (NotDetected) U Marijuana (THC) Screen (NotDetected) Serum Alcohol <10 mg/dL 05/06/19 Range/Units 10:30 WBC (3.8-10.6) k/uL RBC (4.30-5.90) m/uL Hgb (13.0-17.5) gm/dL Hct (39.0-53.0) % MCV (80.0-100.0) fL MCH (25.0-35.0) pg MCHC (31.0-37.0) g/dL RDW (11.5-15.5) % Plt Count (150-450) k/uL Neutrophils % % Lymphocytes % % Monocytes % % Eosinophils % % Basophils % % Neutrophils # (1.3-7.7) k/uL Lymphocytes # (1.0-4.8) k/uL Monocytes # (0-1.0) k/uL Eosinophils # (0-0.7) k/uL Basophils # (0-0.2) k/uL Sodium (137-145) mmol/L Potassium (3.5-5.1) mmol/L Chloride (98-107) mmol/L Carbon Dioxide (22-30) mmol/L Anion Gap mmol/L BUN (9-20) mg/dL Creatinine (0.66-1.25) mg/dL Est GFR (CKD-EPI)AfAm (>60 ml/min/1.73 sqM) Est GFR (CKD-EPI)NonAf (>60 ml/min/1.73 sqM) Glucose (74-99) mg/dL Calcium (8.4-10.2) mg/dL Total Bilirubin (0.2-1.3) mg/dL AST (17-59) U/L ALT (21-72) U/L Alkaline Phosphatase (38-126) U/L Total Protein (6.3-8.2) g/dL Albumin (3.5-5.0) g/dL Lipase (23-300) U/L Urine Color Yellow Urine Appearance Clear (Clear) Urine pH 5.5 (5.0-8.0) Ur Specific [place] 1.006 (1.001-1.035) Urine Protein Negative (Negative) Urine Glucose (UA) Negative (Negative) Urine Ketones Negative (Negative) Urine Blood Negative (Negative) Urine Nitrite Negative (Negative) Urine Bilirubin Negative (Negative) Urine Urobilinogen <2.0 (<2.0) mg/dL Ur Leukocyte Esterase Negative (Negative) Urine Opiates Screen Detected H (NotDetected) Ur Oxycodone Screen Not Detected (NotDetected) Urine Methadone Screen Not Detected (NotDetected) Ur Propoxyphene Screen Not Detected (NotDetected) Ur Barbiturates Screen Not Detected (NotDetected) U Tricyclic Antidepress Detected H (NotDetected) Ur Phencyclidine Scrn Not Detected (NotDetected) Ur Amphetamines Screen Not Detected (NotDetected) U Methamphetamines Scrn Not Detected (NotDetected) U Benzodiazepines Scrn Detected H (NotDetected) Urine Cocaine Screen Not Detected (NotDetected) U Marijuana (THC) Screen Detected H (NotDetected) Serum Alcohol mg/dL Disposition Clinical Impression: Abdominal pain, Major depression, recurrent, Suicidal ideations Disposition: TRANSFER TO PSYCH HOSP/UNIT Condition: Stable Referrals: Cassie Evans MD [Primary Care Provider] - 1-2 days
[2019-05-06 10:51] LABS: Appearance,Urine Clear (Clear); Bilirubin,Urine Negative (Negative); Blood,Urine Negative (Negative); Color,Urine Yellow; Glucose,Urine (UA) Negative (Negative); Ketones,Urine Negative (Negative); Leukocyte Esterase,Urine Negative (Negative); Nitrite,Urine Negative (Negative); PH, Urine 5.5 (5.0-8.0); Protein,Urine Negative (Negative); Specific Gravity,Urine 1.006 (1.001-1.035); Urobilinogen,Urine <2.0 mg/dL (<2.0)
[2019-05-06 11:10] LABS: Cocaine Screen,Urine Not Detected (NotDetected); Opiate Screen,Urine Detected (NotDetected); Phencyclidine Screen,Urine Not Detected (NotDetected); Urn Cannabinoid Scrn Detected (NotDetected)
[2019-05-06 11:11] LABS: Amphetamine Screen,Urine Not Detected (NotDetected); Barbiturate Screen,Urine Not Detected (NotDetected); Benzodiazepines Screen,Urine Detected (NotDetected); Methadone Screen, Urine Not Detected (NotDetected); Oxycodone Screen, Urine Not Detected (NotDetected); Tricyclic Antidepressant,Urine Detected (NotDetected)
[2019-05-06] MEDS ORDERED: IBUPROFEN 600 MG TAB PO STA (15:19)
[2019-05-06] MEDS ORDERED: CALCIUM CARBONATE 500 MG CHEWABLE PO STA (15:57)
[2019-05-06] MEDS ORDERED: ACETAMINOPHEN TAB 325 MG TAB PO PRN (16:33)
[2019-05-06] MEDS ORDERED: MAG HYDROX/AL HYDROX/SIMETH 30 ML CUP PO PRN (16:33)
[2019-05-06] MEDS ORDERED: MAGNESIUM HYDROXIDE 2,400 MG/10 ML CUP PO PRN (16:33)
[2019-05-06] MEDS ORDERED: LORazepam 2 MG/ML INJ IM PRN (16:37)
[2019-05-06] MEDS ORDERED: LORazepam 1 MG TAB PO PRN (16:37)
[2019-05-06 17:04] VITALS: BMI 28.3
[2019-05-06] MEDS: NICOTINE 14MG/24HR PATCH TRANSDERM SCH (17:50)
[2019-05-06] MEDS: DIAZEPAM 5 MG TAB PO PRN (18:34)
[2019-05-06] MEDS: DIVALPROEX 500 MG TABLET.DR PO SCH (20:19)
[2019-05-06] MEDS: ATORVASTATIN 20 MG TAB PO SCH (20:20)
[2019-05-06] MEDS: TAMSULOSIN 0.4 MG CAP.ER.24H PO SCH (20:20)
[2019-05-06] MEDS ORDERED: AMITRIPTYLINE HCL 50 MG TAB PO SCH (21:00)
[2019-05-07] MEDS: DIAZEPAM 5 MG TAB PO PRN ×3 (02:13→16:30)
[2019-05-07] MEDS: METHYL SALICYLATE/MENTHOL CREAM 5 OZ TOPICAL PRN ×2 (02:13→20:44)
[2019-05-07] MEDS: DIVALPROEX 500 MG TABLET.DR PO SCH ×2 (08:48→20:16)
[2019-05-07] MEDS ORDERED: NON-FORMULARY DRUG (B Complex-Vit C-Vit E-Zinc 1 TAB) PO SCH (09:00)
[2019-05-07] MEDS: NICOTINE 14MG/24HR PATCH TRANSDERM SCH (09:46)
[2019-05-07] MEDS: VENLAFAXINE HCL ER 37.5 MG CAP PO SCH (10:45)
--- NOTE | 2019-05-07 12:10 | P.HP ---
Psychiatric H&P - . H&P Date: 05/07/19 History & Physical: Allergies Allergy/AdvReac Type Severity Reaction Status Date / Time No Known Allergies Allergy Verified 05/06/19 17:15 Vital Signs Temp 97.5 F L 05/07/19 05:20 Pulse 85 05/07/19 05:20 Resp 16 05/07/19 05:20 BP 115/76 05/07/19 05:20 Pulse Ox 98 05/06/19 17:16 Intake & Output 05/06/19 05/07/19 05/07/19 18:59 06:59 18:59 Intake Total 1000 Balance 1000 Weight 84.4 kg Intake: Amount of Fluid Infused ( 1000 ml) Laboratory Last Values WBC 5.6 k/uL (3.8-10.6) 05/06/19 08:48 RBC 4.46 m/uL (4.30-5.90) 05/06/19 08:48 Hgb 13.4 gm/dL (13.0-17.5) 05/06/19 08:48 Hct 39.9 % (39.0-53.0) 05/06/19 08:48 MCV 89.4 fL (80.0-100.0) 05/06/19 08:48 MCH 30.1 pg (25.0-35.0) 05/06/19 08:48 MCHC 33.6 g/dL (31.0-37.0) 05/06/19 08:48 RDW 13.7 % (11.5-15.5) 05/06/19 08:48 Plt Count 162 k/uL (150-450) 05/06/19 08:48 Neutrophils % 45 % 05/06/19 08:48 Lymphocytes % 39 % 05/06/19 08:48 Monocytes % 9 % 05/06/19 08:48 Eosinophils % 5 % 05/06/19 08:48 Basophils % 1 % 05/06/19 08:48 Neutrophils # 2.6 k/uL (1.3-7.7) 05/06/19 08:48 Lymphocytes # 2.2 k/uL (1.0-4.8) 05/06/19 08:48 Monocytes # 0.5 k/uL (0-1.0) 05/06/19 08:48 Eosinophils # 0.3 k/uL (0-0.7) 05/06/19 08:48 Basophils # 0.0 k/uL (0-0.2) 05/06/19 08:48 Sodium 140 mmol/L (137-145) 05/06/19 08:48 Potassium 3.6 mmol/L (3.5-5.1) 05/06/19 08:48 Chloride 107 mmol/L (98-107) 05/06/19 08:48 Carbon Dioxide 30 mmol/L (22-30) 05/06/19 08:48 Anion Gap 3 mmol/L 05/06/19 08:48 BUN 6 mg/dL (9-20) L 05/06/19 08:48 Creatinine 0.79 mg/dL (0.66-1.25) 05/06/19 08:48 Est GFR (CKD-EPI)AfAm >90 (>60 ml/min/1.73 sqM) 05/06/19 08:48 Est GFR (CKD-EPI)NonAf >90 (>60 ml/min/1.73 sqM) 05/06/19 08:48 Glucose 92 mg/dL (74-99) 05/06/19 08:48 Calcium 8.1 mg/dL (8.4-10.2) L 05/06/19 08:48 Total Bilirubin 0.3 mg/dL (0.2-1.3) 05/06/19 08:48 AST 15 U/L (17-59) L 05/06/19 08:48 ALT 24 U/L (21-72) 05/06/19 08:48 Alkaline Phosphatase 53 U/L (38-126) 05/06/19 08:48 Total Protein 5.0 g/dL (6.3-8.2) L 05/06/19 08:48 Albumin 2.9 g/dL (3.5-5.0) L 05/06/19 08:48 Triglycerides 260 mg/dL (<150) H 05/06/19 08:48 Cholesterol 122 mg/dL (<200) 05/06/19 08:48 LDL Cholesterol, Calc 37 mg/dL (0-99) 05/06/19 08:48 HDL Cholesterol 33 mg/dL (40-60) L 05/06/19 08:48 Lipase 39 U/L (23-300) 05/06/19 08:48 TSH 6.080 mIU/L (0.465-4.680) H 05/06/19 08:48 Urine Color Yellow 05/06/19 10:30 Urine Appearance Clear (Clear) 05/06/19 10:30 Urine pH 5.5 (5.0-8.0) 05/06/19 10:30 Ur Specific [place] 1.006 (1.001-1.035) 05/06/19 10:30 Urine Protein Negative (Negative) 05/06/19 10:30 Urine Glucose (UA) Negative (Negative) 05/06/19 10:30 Urine Ketones Negative (Negative) 05/06/19 10:30 Urine Blood Negative (Negative) 05/06/19 10:30 Urine Nitrite Negative (Negative) 05/06/19 10:30 Urine Bilirubin Negative (Negative) 05/06/19 10:30 Urine Urobilinogen <2.0 mg/dL (<2.0) 05/06/19 10:30 Ur Leukocyte Esterase Negative (Negative) 05/06/19 10:30 Urine Opiates Screen Detected (NotDetected) H 05/06/19 10:30 Ur Oxycodone Screen Not Detected (NotDetected) 05/06/19 10:30 Urine Methadone Screen Not Detected (NotDetected) 05/06/19 10:30 Ur Propoxyphene Screen Not Detected (NotDetected) 05/06/19 10:30 Ur Barbiturates Screen Not Detected (NotDetected) 05/06/19 10:30 Valproic Acid 73.7 ug/mL 05/06/19 08:48 U Tricyclic Antidepress Detected (NotDetected) H 05/06/19 10:30 Ur Phencyclidine Scrn Not Detected (NotDetected) 05/06/19 10:30 Ur Amphetamines Screen Not Detected (NotDetected) 05/06/19 10:30 U Methamphetamines Scrn Not Detected (NotDetected) 05/06/19 10:30 U Benzodiazepines Scrn Detected (NotDetected) H 05/06/19 10:30 Urine Cocaine Screen Not Detected (NotDetected) 05/06/19 10:30 U Marijuana (THC) Screen Detected (NotDetected) H 05/06/19 10:30 Serum Alcohol <10 mg/dL 05/06/19 08:48 05/07/19 11:52 Identification: Patient is a 43-year-old male who presented to the emergency room complaining of left flank pain as well as stating he was depressed and had suicidal thoughts. History of Present Illness: Patient states that he hasn't slept for 3 days, thought he was having kidney stones and presented to the emergency room because he was having pain and wasn't urinating as he had the past. He states that he had racing thoughts where he was ruminating about his medical problems about his back Social Security disability. Patient states that he also had some suicidal thoughts but no plan. Patient states that he has not been followed by [facility] and was seen there for 6 months after his discharge in October 2016 from the inpatient psychiatric unit and states that they told him he didn't have to follow up there anymore and so he continued to see his primary care physician for psychiatric meds. He states he was on Cymbalta until recently and was told to stop the Cymbalta by his urologist because it was causing urinary retention, patient states he been on the medication for at lease to year and a half. He states that he stopped the Seroquel because it was too sedating and placed on Remeron for sleep which stopped working and then was transitioned to Elavil. He has been on the Elavil at 100 mg at bedtime for the last 3 months. Patient states that he sees his primary care physician for his medications. Patient states that his first treatment for depression was in 2014 when he attempted suicide by hanging himself and he was found by his partner and had no prior treatment at that time her depression. He states that he became suicidal and depressed secondary to the pain and the fact that he could no longer work. He was admitted a second time in 2014 again for cutting himself and he states again due to the pain and being unable to work. He states that his last admission in October 2016 was for trying to walk out in traffic as a suicide attempt. Patient states the precipitant to his feeling suicidal is the pain and not sleeping well. Patient states that he was never treated with psychotropic medications prior to his first admission in 2014 and has been tried on Cymbalta, Remeron, lithium, Effexor, Desyrel, Elavil. Patient states that he also feels anxious which is related to his pain and not sleeping and has been on Xanax and Klonopin in the past and is currently taking Valium 10 mg 3 times a day, it's prescribed as needed the patient does take it 3 times a day and he states this is for his anxiety and also as a muscle relaxer. Patient states that the Elavil has not been helpful for his sleep and he doesn't feel any less depressed on it. Patient does not endorse a history of any auditory or visual hallucinations and no delusional ideation nor any manic symptoms. Patient does not endorse any OCD symptoms. Patient currently endorses symptoms of not sleeping well and feeling tired, his appetite is decreased states he is not having crying spells but feels worthless and states that he can't cope with the pain that he is having and doesn't want to live. He states he has no current suicidal plan and did not at the time of admission. Past Psychiatric History: Patient has 3 prior admissions to our facility and he states as a the only psychiatric admissions he had his last one being in October 2016. Patient is currently taking Elavil 100 mg at bedtime, Valium 10 mg 3 times a day. Patient has been on Cymbalta, Remeron, lithium, Effexor and does a real in the past. Patient is also on benzodiazepines for muscle relaxation due to his back pain and also for anxiety and has been on Xanax and Klonopin in the past. Past Medical/Surgical History: Patient reports a history of hyperlipidemia, osteoarthritis, GERD, seizure disorder for which she is taking Depakote is status post hernia repair 2 status post a cervical fusion in 2014 and status post L5-S1 fusion in November 2018 for which she has been taking Tylenol No. 4 with codeine 3-4 times a day. Patient states the gabapentin was not effective in relieving his pain. Patient states he also has a history of a TIA. Patient has a history of sleep apnea but stated he was unable to afford a CPAP machine and so does not use one Family History: patient states that his family has no psychiatric history, his father abused alcohol and no completed suicides Social History: patient was born and raised in [place] and his mother is alive and his father is . He has 4 sisters. He completed high school and then enlisted in the [employer] where he served for 4 years and was honorably discharged. He attended college for a year and a half and then stopped secondary to having the cervical fusion. 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 Patient states he was at the age of 18 she cheated on him and he returned to [place] after he left the [employer] and that only a year ago did they . Patient has a 14-year-old son from a different partner who lives with his mother. Patient states they live close to each other and he does have contact with his son. Patient lives with several roommates and denies any history of abuse. Substance Use History: patient states that when he was in the [employer] he drank alcohol on a daily basis 12 or more beers a day now states that he does not use any alcohol. Patient states he is used marijuana since the age of 15 and uses it on a daily basis patient denies any use of cocaine, methamphetamine and IV drugs and states that he has never been told he uses benzodiazepines or his opiate pain medication. States that he tried acid in high school. Patient does use tobacco products Legal History: patient is been charged with possession of marijuana and driving on a suspended license Mental status: Appearance/Attitude: Patient is neatly dressed, makes eye contact and is cooperative. Behavior: Patient does not exhibit any psychomotor agitation or retardation. Speech/Language: Patient's speech is spontaneous of normal volume and rhythm and he coherent Thought Process: Patient is goal-directed there is no evidence of loose association or flight of ideas Thought Content: Patient denies any auditory or visual hallucinations no delusions or paranoid ideation are elicited. Patient states that he has been feeling worthless, not sleeping well feeling tired with little motivation or interest to do things. He denies any crying spells. Patient states that his appetite is decreased only been eating once a day. He states that pain keeps him up at night as well. Suicidal/Homicidal Ideation: Patient denies any current homicidal ideation, st ates that he just doesn't feel like living and has no plan or intent to act Sensorium/Cognition: Patient is alert and oriented to person, place, time and his recent and remote memory are grossly. Mood/Affect: Patient's mood is depressed and his affect is slightly blunted Insight/Judgment: Patient's insight and judgment are fair Intellectual Functioning: Patient's intellectual functioning appears to be average Strength/Weakness: Patient has housing, source of financial support/lack of follow-up at [facility], poor coping skills Assessment:Patient presented to the emergency room complaining about left flank pain and concerns about having a kidney stone and also reported that he hadn't slept for 3 days and had thoughts of hurting himself but no plan or intent to act. Patient has not been followed by [facility] since 6 months after his release in October 2016 and has been prescribed medications by his primary care physician. In looking at his prescribing history the patient has been prescribed Valium 10 mg tablets #90 last filled on April 23, Tylenol with Codeine number for numbers 120 last filled on May 04 the patient also filled prescription for gabapentin 800 mg numbers 90 on April 09. Patient states that the gabapentin has not been effective for his pain. Patient states that the Elavil is no longer helping him sleep and hasn't been effective for his depression he had been on Remeron prior to this, Seroquel prior to that and was told to discontinue his Cymbalta by his urologist. Patient states that he recently had L5-S1 fusion in November of this year and continues to have back pain. Patient states that he is also on Valium 10 mg 3 times a day which he takes 3 times a day as a muscle relaxant as well as to help with anxiety which he states is related to his back pain. Patient has a history of depressive symptoms that began after his back pain increased prior to that the patient had not received any psychotropic medication or psychiatric care. Patient has had a fusion in the cervical spine in 2009 and her recent fusion at L5-S1 in November of this year and continues to use opiate pain medication to control his pain. He's been diagnosed with sleep apnea but states he can't afford the CPAP machine and so does not use one. Patient does not endorse a history of psychotic symptoms, manic symptoms or OCD symptoms and does not describe having panic attacks. 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 Patient will have routine laboratory studies as well as a medical consultation and a Depakote level was also ordered. Patient will be continued on his Depakote 500 mg in the morning 1 000 mg at bedtime, he was continued on Valium but at a lower dose of 5 mg 3 times a day as needed and his statin was continued. Patient and I discussed decreasing his Valium and considering slowly tapering him off of this medication. I discussed with him that benzodiazepines should not be used in conjunction with opiate pain medication. Patient states he was also taking a baby aspirin a day and Zantac 1 or 50 mg twice a day. Patient's Elavil as not been effective and will be decreased to 50 mg at bedtime and I discussed the use and side effects of Effexor with the patient to target his symptoms of depression and will begin 37.5 mg extended release. Patient was not continued on any pain medication at this time but was told that we only used [place] 5 mg up to 3 times a day as needed for pain on the inpatient psychiatric unit.
[2019-05-07] MEDS ORDERED: ACETAMINOPHEN WITH CODEINE PO PRN (14:05)
[2019-05-07 14:12] LABS: Hemoglobin A1C 6.1 % (4.0-6.0)
--- NOTE | 2019-05-07 14:24 | P.HPIM ---
History of Present Illness H&P Date: 05/07/19 The patient is a 43-year-old male with a PMH of chronic lower back pain, seizure disorder, tobacco abuse, depression, and marijuana abuse who presented to the ED for abdominal pain along with depression and suicidal ideation. The patient was seen in the mental health unit on 05/07/2019. He reported that he came to the ED due to racing thoughts and concerns about his depression due to his ongoing lower back pain. He stated that he takes Tylenol # 4 at home, and has been trying to get into pain Center and has an upcoming appointment. The patient also reported that prior to presentation, he had not been sleeping for 3-4 days due to his racing thoughts and states that he had a breakthrough seizure in the ED which she attributes to his lack of sleep. At time of interview, he endorsed continued lower back pain but otherwise denied additional complaints. He denied chest pain, shortness of breath, nausea, vomiting, diarrhea, dizziness, headache, or abdominal pain. Review of Systems Pertinent positives and negatives as discussed in HPI, a complete review of sy stems was performed and all other systems are negative. Past Medical History Past Medical History: GERD/Reflux, Hyperlipidemia, Osteoarthritis (OA), Seizure Disorder Additional Past Medical History / Comment(s): Chronic back pain, herniated disc, kidney stone, LAST SEIZURE 05/06/2019 History of Any Multi-Drug Resistant Organisms: None Reported Past Surgical History: Hernia Repair, Orthopedic Surgery Additional Past Surgical History / Comment(s): Cervical fusion ACDF 2009, carpel tunnel, left knee arthroscopic surgery, polyp removal, hemorrhage surgery he morrhoid surgery, rectal warts, sinus surgery, PAIN CLINIC PROCEDURES. Nov 2018, Back surgery Past Anesthesia/Blood Transfusion Reactions: No Reported Reaction Smoking Status: Current every day smoker - Past Family History Mother Family Medical History: Hyperlipidemia, Hypertension, Osteoarthritis (OA) Additional Family Medical History / Comment(s): Mom is alive at 70 years of age Father Family Medical History: Cancer, Liver Disease Additional Family Medical History / Comment(s): Dad at age 60 from liver cancer, hepatitis C, cirrhosis. Sister(s) Family Medical History: No Reported History Daughter(s) Family Medical History: No Reported History Son(s) Family Medical History: No Reported History Additional Family Medical History / Comment(s): Patient states he has 4 sisters that are healthy. Medications and Allergies Home Medications Medication Instructions Recorded Confirmed Type Simvastatin [Zocor] 40 mg PO HS 30 Days tab 10/21/16 05/06/19 Rx Diazepam [Valium] 10 mg PO TID PRN 01/15/17 05/06/19 History Divalproex Sodium [Depakote] 1,000 mg PO HS 03/20/17 05/06/19 History Tamsulosin HCl [Flomax] 0.4 mg PO HS 05/22/17 05/06/19 History Acetaminophen with Codeine 1 tab PO Q6H PRN 05/06/19 05/06/19 History [Tylenol with Codeine #4 Tablet] Amitriptyline HCl [Elavil] 100 mg PO HS 05/06/19 05/06/19 History B Complex-Vit C-Vit E-Zinc [Z-Bec] 1 tab PO DAILY 05/06/19 05/06/19 History Divalproex Sodium [Depakote] 500 mg PO DAILY 05/06/19 05/06/19 History Allergies Allergy/AdvReac Type Severity Reaction Status Date / Time No Known Allergies Allergy Verified 05/06/19 17:15 Physical Exam Vitals: Vital Signs Temp Pulse Resp BP Pulse Ox 05/07/19 05:20 97.5 F L 85 16 115/76 05/06/19 17:16 96.9 F L 88 15 121/72 98 05/06/19 16:59 96.9 F L 88 15 121/72 98 Intake and Output 05/06/19 05/07/19 05/07/19 22:59 06:59 14:59 Intake Total 1000 Balance 1000 Intake: Amount of Fluid Infused ( 1000 ml) Other: Weight 84.4 kg General: non toxic, no distress, appears at stated age, normal weight Derm: no unusual rashes/lesions no unusual ecchymoses, warm, dry Head: atraumatic, normocephalic, symmetric Eyes: EOMI, no lid lag, anicteric sclera, pupils equal round reactive to light ENT: Nose and ears atraumatic, no thrush, no pharyngeal erythema Neck: No thyromegaly, no cervical lymphadenopathy, trachea midline, supple Mouth: no lip lesion, mucus membranes moist Cardiovascular: S1S2 reg, no murmur, positive posterior tibial pulse bilateral, no edema, capillary refill less than 2 seconds Lungs: CTA bilateral, no rhonchi, no rales , no accessory muscle use Abdominal: soft, nontender to palpation, no guarding, no appreciable organ omegaly, normal bowel sounds Ext: no gross muscle atrophy, muscle strength 5 out of 5 in all 4 extremities grossly, no contractures, Neuro: CN II-XI grossly intact, light touch intact all 4 extremities, finger to nose within normal limits, Psych: Alert, oriented, appropriate affect Results CBC & Chem 7: 05/06/19 08:48 05/06/19 08:48 Labs: Abnormal Lab Results - Last 24 Hours (Table) 05/06/19 Range/Units 08:48 Triglycerides 260 H (<150) mg/dL HDL Cholesterol 33 L (40-60) mg/dL TSH 6.080 H (0.465-4.680) mIU/L Thrombosis Risk Factor Assmnt - Choose All That Apply Each Factor Represents 1 point: Age 41-60 years Other Risk Factors: Yes Each Risk Factor Represents 2 Points: Major surgery Other congenital or acquired thrombophilia - If yes, enter type in comment: No Thrombosis Risk Factor Assessment Total Risk Factor Score: 3 Thrombosis Risk Factor Assessment Level: Moderate Risk Assessment and Plan Plan: Chronic lower back pain -C/w home pain medications Depression w/ suicidal ideation -As per psychiatry Abnormal TSH -Check Free T4 Hypoalbuminemia -Likely due to poor nutritional intake Seizure disorder -C/w home meds Tobacco abuse -Advised on importance of cessation
[2019-05-07] MEDS: TAMSULOSIN 0.4 MG CAP.ER.24H PO SCH (20:16)
[2019-05-07] MEDS: ATORVASTATIN 20 MG TAB PO SCH (20:16)
[2019-05-07] MEDS: MELATONIN 5 MG TABLET PO SCH (20:16)
[2019-05-07] MEDS ORDERED: AMITRIPTYLINE HCL 50 MG TAB PO SCH (21:00)
[2019-05-08] MEDS: DIAZEPAM 5 MG TAB PO PRN ×3 (00:44→18:39)
[2019-05-08] MEDS: METHYL SALICYLATE/MENTHOL CREAM 5 OZ TOPICAL PRN (06:30)
[2019-05-08] MEDS: ASPIRIN 81 MG PO SCH (08:31)
[2019-05-08] MEDS: DIVALPROEX 500 MG TABLET.DR PO SCH ×3 (08:31→20:56)
[2019-05-08] MEDS: VENLAFAXINE HCL ER 37.5 MG CAP PO SCH (08:31)
[2019-05-08 10:29] LABS: T4, Free (Free Thyroxine) 0.74 ng/dL (0.78-2.19)
[2019-05-08] MEDS: HYDROcodone/APAP 5-325MG 1 EACH TAB PO PRN ×2 (11:35→20:56)
--- NOTE | 2019-05-08 11:48 | P.PN ---
Progress Note - Text Progress Note Date: 05/08/19 Interval History: Patient is a 43-year-old male who was seen today and he reports that he slept well for the first time last night. Patient states that he's feeling better today because he slept well last night. He reports no side effects from the Effexor. Patient states he is having no trouble tolerating the lower dose of Valium and was prescribed [place] 53 times a day as needed for his pain. Patient states he is not having any suicidal thoughts and his appetite is good. Mental Status: Appearance/Attitude: Patient is neatly dressed, makes eye contact and is cooperative Behavior: Patient does not display any psychomotor agitation or retardation Speech/Language: Patient's speech is spontaneous of normal volume and rhythm and he is coherent Thought Process: Patient is goal-directed there is no evidence of loose association or flight of ideas Thought Content: Patient denies any auditory or visual hallucinations and no delusions or paranoid ideation or elicited. Patient states he slept well last night and feels better this morning and he has. He states he has no side effects from beginning the Effexor. Patient states he is tolerating the lower dose of Valium well and did not complain about anxiety. Patient states his appetite is good. Suicidal/Homicidal Ideation: Patient denied any current suicidal or homicidal ideation Sensorium/Cognition: Patient is alert and oriented to person, place, and time and his recent and remote memory grossly intact Mood/Affect: Patient's mood is less depressed and his affect is appropriate Insight/Judgment: Patient's insight and judgment are fair Assessment:. Patient reports he slept well last evening with the melatonin, states he feels much better because he slept last evening, he states he is no longer feeling suicidal and is feeling less depressed. Patient reported no difficulty tolerating the lower dose of the Valium. Patient has no side effects from beginning Effexor. Patient has been attending groups and activities. Plan: We'll discontinue the patient's Elavil and continue Effexor 37.5 mg extended release in the morning to target his depressive symptoms and melatonin 5 mg at bedtime to assist with sleep. Patient is receiving Valium 5 mg 3 times a day as needed as well as [place] 5 mg tabs 3 times a day as needed for his pain. Will recontact the medical record coder regarding the patient's slightly low free T4 to see if this requires treatment. Patient requires hospitalization to continue to stabilize his mood.
[2019-05-08] MEDS: MELATONIN 5 MG TABLET PO SCH (20:56)
[2019-05-08] MEDS: ATORVASTATIN 20 MG TAB PO SCH (20:56)
[2019-05-08] MEDS: TAMSULOSIN 0.4 MG CAP.ER.24H PO SCH (20:56)
[2019-05-09] MEDS: DIAZEPAM 5 MG TAB PO PRN ×3 (05:05→20:33)
[2019-05-09] MEDS: VENLAFAXINE HCL ER 37.5 MG CAP PO SCH (08:35)
[2019-05-09] MEDS: HYDROcodone/APAP 5-325MG 1 EACH TAB PO PRN ×2 (08:36→16:40)
[2019-05-09] MEDS: ASPIRIN 81 MG PO SCH (08:36)
[2019-05-09] MEDS: DIVALPROEX 500 MG TABLET.DR PO SCH ×2 (08:36→20:32)
[2019-05-09] MEDS: METHYL SALICYLATE/MENTHOL CREAM 5 OZ TOPICAL PRN (10:40)
--- NOTE | 2019-05-09 11:10 | P.PN ---
Progress Note - Text Progress Note Date: 05/09/19 Interval History: Patient is a 43-year-old male who was seen today, he reports that he is sleeping well and states that his pain has been fairly well controlled here with his current pain medication and hasn't been reporting any difficulty with the lower dose of Valium. Patient states that he is not feeling as depressed is not having any suicidal thoughts and states that he is feeling pretty well. Patient states that he is attempting to arrange for outpatient care through his Medicare. Mental Status:Appearance/Attitude: Patient is casually dressed makes eye contact and is cooperative Behavior: Patient does not exhibit any psychomotor agitation or retardation Speech/Language: Patient speech is spontaneous and of normal volume and rhythm and he is coherent Thought Process: Patient does not exhibit any loose association or flight of ideas and is goal-directed Thought Content: Patient denies any auditory or visual hallucinations and no delusions or paranoid ideation or elicited. Patient states that he is no longer feeling as hopeless, has been sleeping well and having more energy during the day and not feeling as tired. He did not report any current somatic complaints. Patient states that he sleeping well and his appetite is good and he reported no side effects from the medication. Suicidal/Homicidal Ideation: Patient denies any current suicidal or homicidal ideation Sensorium/Cognition: Patient is alert and oriented to person, place, and time and his recent and remote memory are grossly intact Mood/Affect: Patient's mood is pleasant and his affect is appropriate Insight/Judgment: Patient's insight and judgment are fair Assessment: Patient reports he sleeping much better, not feeling as tired and had no somatic complaints today. Patient states he is not having any side effects from the Effexor and states that he is feeling less depressed and not having any suicidal thoughts. Patient is attending groups and activities. Patient reports that his sleep is good and his appetite is good as well. Plan: Patient will continue on Effexor 37.5 mg extended release in the morning and melatonin 5 mg at bedtime and we discussed discharge tomorrow as the patient is doing well. Patient is attempting to contact his Medicare provider to arrange for outpatient psychiatric care.
[2019-05-09] MEDS: ATORVASTATIN 20 MG TAB PO SCH (20:32)
[2019-05-09] MEDS: MELATONIN 5 MG TABLET PO SCH (20:32)
[2019-05-09] MEDS: TAMSULOSIN 0.4 MG CAP.ER.24H PO SCH (20:33)
[2019-05-10] MEDS: HYDROcodone/APAP 5-325MG 1 EACH TAB PO PRN ×2 (03:15→11:33)
[2019-05-10 05:44] VITALS: BP 117/66; PULSE 97; RESP 16; TEMP 98
[2019-05-10] MEDS: DIAZEPAM 5 MG TAB PO PRN (08:11)
[2019-05-10] MEDS: ASPIRIN 81 MG PO SCH (08:11)
[2019-05-10] MEDS: VENLAFAXINE HCL ER 37.5 MG CAP PO SCH (08:11)
[2019-05-10] MEDS: DIVALPROEX 500 MG TABLET.DR PO SCH (08:11)
--- NOTE | 2019-05-10 10:00 | P.DS ---
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 Patient states that he hasn't slept for 3 days, thought he was having kidney stones and presented to the emergency room because he was having pain and wasn't urinating as he had the past. He states that he had racing thoughts where he was ruminating about his medical problems about his back Social Security disability. Patient states that he also had some suicidal thoughts but no plan. Patient states that he has not been followed by formerly [facility], [facility] and was seen there for 6 months after his discharge in October 2016 from the inpatient psychiatric unit and states that they told him he didn't have to follow up there anymore and so he continued to see his primary care physician for psychiatric meds. He states he was on Cymbalta until recently and was told to stop the Cymbalta by his urologist because it was causing urinary retention, patient states he been on the medication for at lease to year and a half. He states that he stopped the Seroquel because it was too sedating and placed on Remeron for sleep which stopped working and then was transitioned to Elavil. He has been on the Elavil at 100 mg at bedtime for the last 3 months. Patient states that he sees his primary care physician for his medications. Patient states that his first treatment for depression was in 2014 when he attempted suicide by hanging himself and he was found by his partner and had no prior treatment at that time her depression. He states that he became suicidal and depressed secondary to the pain and the fact that he could no lo [employer] work. He was admitted a second time in 2014 again for cutting himself and he states again due to the pain and being unable to work. He states that his last admission in October 2016 was for trying to walk out in traffic as a suicide attempt. Patient states the precipitant to his feeling suicidal is the pain and not sleeping well. Patient states that he was never treated with psychotropic medications prior to his first admission in 2014 and has been tried on Cymbalta, Remeron, lithium, Effexor, Desyrel, Elavil. Patient states that he also feels anxious which is related to his pain and not sleeping and has been on Xanax and Klonopin in the past and is currently taking Valium 10 mg 3 times a day, it's prescribed as needed the patient does take it 3 times a day and he states this is for his anxiety and also as a muscle relaxer. Patient states that the Elavil has not been helpful for his sleep and he doesn't feel any less depressed on it. Patient does not endorse a history of any auditory or visual hallucinations and no delusional ideation nor any manic symptoms. Patient does not endorse any OCD symptoms. Patient currently endorses symptoms of not sleeping well and feeling tired, his appetite is decreased states he is not having crying spells but feels worthless and states that he can't cope with the pain that he is having and doesn't want to live. He states he has no current suicidal plan and did not at the time of admission. Mental status on Admission: Appearance/Attitude: Patient is neatly dressed, makes eye contact and is cooperative. Behavior: Patient does not exhibit any psychomotor agitation or retardation. Speech/Language: Patient's speech is spontaneous of normal volume and rhythm and he coherent Thought Process: Patient is goal-directed there is no evidence of loose association or flight of ideas Thought Content: Patient denies any auditory or visual hallucinations no delusions or paranoid ideation are elicited. Patient states that he has been feeling worthless, not sleeping well feeling tired with little motivation or interest to do things. He denies any crying spells. Patient states that his appetite is decreased only been eating once a day. He states that pain keeps him up at night as well. Suicidal/Homicidal Ideation: Patient denies any current homicidal ideation, states that he just doesn't feel like living and has no plan or intent to act Sensorium/Cognition: Patient is alert and oriented to person, place, time and his recent and remote memory are grossly. Mood/Affect: Patient's mood is depressed and his affect is slightly blunted Insight/Judgment: Patient's insight and judgment are fair Hospital Course: Patient was admitted on a voluntary basis, group and activity therapy were ordered, he was placed on routine precautions, routine laboratory studies were obtained as well as a Depakote level and a medical consultation was obtained. Patient was continued on his statin which was replaced with Lipitor, Flomax and his Valium was decreased to 5 mg 3 times a day as needed from 10 and his Tylenol No. 4's were replaced with [place] fives 3 times a day as needed. Patient's Elavil was decreased and eventually discontinued and the patient was started on Effexor 37.5 mg extended release in the morning. Patient's Depakote level was within normal limits, his TSH was slightly elevated and a free T4 was slightly decreased. Patient reported his sleep had not been good at home and he been using marijuana, had been diagnosed with sleep apnea in the past but never used a CPAP machine because he could not afford the co-pay and melatonin 5 mg was begun at bedtime to assist with sleep. Patient slowly improved on the Effexor and his sleep improved as well. Patient reported no symptoms of increased anxiety or muscle cramping on the lower dose of Valium as well he reported no withdrawal symptoms or increased pain. Patient reported that he was feeling less depressed, his sleep improved and he had more energy was no longer having any suicidal thoughts. Patient attended groups and activities and stated his appetite was good. Patient reported that he was not having any side effects from the medication and felt he was ready to return home. Allergies No Known Allergies Allergy (Verified 05/06/19 17:15) Laboratory Last Values WBC 5.6 k/uL (3.8-10.6) 05/06/19 08:48 RBC 4.46 m/uL (4.30-5.90) 05/06/19 08:48 Hgb 13.4 gm/dL (13.0-17.5) 05/06/19 08:48 Hct 39.9 % (39.0-53.0) 05/06/19 08:48 MCV 89.4 fL (80.0-100.0) 05/06/19 08:48 MCH 30.1 pg (25.0-35.0) 05/06/19 08:48 MCHC 33.6 g/dL (31.0-37.0) 05/06/19 08:48 RDW 13.7 % (11.5-15.5) 05/06/19 08:48 Plt Count 162 k/uL (150-450) 05/06/19 08:48 Neutrophils % 45 % 05/06/19 08:48 Lymphocytes % 39 % 05/06/19 08:48 Monocytes % 9 % 05/06/19 08:48 Eosinophils % 5 % 05/06/19 08:48 Basophils % 1 % 05/06/19 08:48 Neutrophils # 2.6 k/uL (1.3-7.7) 05/06/19 08:48 Lymphocytes # 2.2 k/uL (1.0-4.8) 05/06/19 08:48 Monocytes # 0.5 k/uL (0-1.0) 05/06/19 08:48 Eosinophils # 0.3 k/uL (0-0.7) 05/06/19 08:48 Basophils # 0.0 k/uL (0-0.2) 05/06/19 08:48 Sodium 140 mmol/L (137-145) 05/06/19 08:48 Potassium 3.6 mmol/L (3.5-5.1) 05/06/19 08:48 Chloride 107 mmol/L (98-107) 05/06/19 08:48 Carbon Dioxide 30 mmol/L (22-30) 05/06/19 08:48 Anion Gap 3 mmol/L 05/06/19 08:48 BUN 6 mg/dL (9-20) L 05/06/19 08:48 Creatinine 0.79 mg/dL (0.66-1.25) 05/06/19 08:48 Est GFR (CKD-EPI)AfAm >90 (>60 ml/min/1.73 sqM) 05/06/19 08:48 Est GFR (CKD-EPI)NonAf >90 (>60 ml/min/1.73 sqM) 05/06/19 08:48 Glucose 92 mg/dL (74-99) 05/06/19 08:[address] Glu mg/dL 128 05/06/19 08:48 Hemoglobin A1c 6.1 % (4.0-6.0) H 05/06/19 08:48 Calcium 8.1 mg/dL (8.4-10.2) L 05/06/19 08:48 Total Bilirubin 0.3 mg/dL (0.2-1.3) 05/06/19 08:48 AST 15 U/L (17-59) L 05/06/19 08:48 ALT 24 U/L (21-72) 05/06/19 08:48 Alkaline Phosphatase 53 U/L (38-126) 05/06/19 08:48 Total Protein 5.0 g/dL (6.3-8.2) L 05/06/19 08:48 Albumin 2.9 g/dL (3.5-5.0) L 05/06/19 08:48 Triglycerides 260 mg/dL (<150) H 05/06/19 08:48 Cholesterol 122 mg/dL (<200) 05/06/19 08:48 LDL Cholesterol, Calc 37 mg/dL (0-99) 05/06/19 08:48 HDL Cholesterol 33 mg/dL (40-60) L 05/06/19 08:48 Lipase 39 U/L (23-300) 05/06/19 08:48 TSH 6.080 mIU/L (0.465-4.680) H 05/06/19 08:48 Free T4 0.74 ng/dL (0.78-2.19) L 05/08/19 09:35 Urine Color Yellow 05/06/19 10:30 Urine Appearance Clear (Clear) 05/06/19 10:30 Urine pH 5.5 (5.0-8.0) 05/06/19 10:30 Ur Specific [place] 1.006 (1.001-1.035) 05/06/19 10:30 Urine Protein Negative (Negative) 05/06/19 10:30 Urine Glucose (UA) Negative (Negative) 05/06/19 10:30 Urine Ketones Negative (Negative) 05/06/19 10:30 Urine Blood Negative (Negative) 05/06/19 10:30 Urine Nitrite Negative (Negative) 05/06/19 10:30 Urine Bilirubin Negative (Negative) 05/06/19 10:30 Urine Urobilinogen <2.0 mg/dL (<2.0) 05/06/19 10:30 Ur Leukocyte Esterase Negative (Negative) 05/06/19 10:30 Urine Opiates Screen Detected (NotDetected) H 05/06/19 10:30 Ur Oxycodone Screen Not Detected (NotDetected) 05/06/19 10:30 Urine Methadone Screen Not Detected (NotDetected) 05/06/19 10:30 Ur Propoxyphene Screen Not Detected (NotDetected) 05/06/19 10:30 Ur Barbiturates Screen Not Detected (NotDetected) 05/06/19 10:30 Valproic Acid 66.0 ug/mL 05/08/19 09:35 U Tricyclic Antidepress Detected (NotDetected) H 05/06/19 10:30 Ur Phencyclidine Scrn Not Detected (NotDetected) 05/06/19 10:30 Ur Amphetamines Screen Not Detected (NotDetected) 05/06/19 10:30 U Methamphetamines Scrn Not Detected (NotDetected) 05/06/19 10:30 U Benzodiazepines Scrn Detected (NotDetected) H 05/06/19 10:30 Urine Cocaine Screen Not Detected (NotDetected) 05/06/19 10:30 U Marijuana (THC) Screen Detected (NotDetected) H 05/06/19 10:30 Serum Alcohol <10 mg/dL 05/06/19 08:48 Discharge Mental Status:Appearance/Attitude: Patient is casually dressed, makes eye contact and was cooperative Behavior: Patient does not display any psychomotor agitation or retardation Speech/Language: Patient's speech is spontaneous of normal volume and rhythm and he is coherent Thought Process: Patient is goal-directed there is no evidence of loose association or flight of ideas Thought Content: Patient denies any auditory or visual hallucinations and no delusions or paranoid ideation are elicited. Patient states that he sleeping well and has more energy and is feeling motivated and interested to do things. Patient states he feels rested in the morning, he reported no increased pain or muscle cramping while in the hospital. Patient's appetite was good. He reports no longer feeling worthless. Suicidal/Homicidal Ideation: Patient denied any current suicidal or homicidal ideation Sensorium/Cognition: Patient was alert and oriented to person, place and time and his recent and remote memory are grossly intact Mood/Affect: Patient's mood was pleasant and his affect is appropriate Insight/Judgment: Patient's insight and judgment are good Risk Assessment: Patient's risk for readmission is low should the patient be compliant with medication and follow-up care and avoid all alcohol and drugs Discharge Plan: Patient will return to his own home, he will continue on Effexor 37.5 mg extended release in the morning and melatonin 5 mg at bedtime, patient will continue on his other medications for his medical problems and he states that he has sufficient of these at home. I spoke with the patient regarding discussing with his primary care physician decreasing his use of benzodiazepines and opiate pain medication. Patient also while in the hospital had a slightly elevated TSH and his free T4 was slightly below the normal range and should be repeated in 3 months was given prescription for these tests. Patient was encouraged to avoid all alcohol and drugs, speak with his PCP regarding another sleep study to determine whether he does have sleep apnea as well as to be compliant with his outpatient follow-up appointments and medication. Patient will follow-up at [facility] and was advised to be compliant with outpatient appointments and medications. Patient Condition at Discharge: Stable Plan - Discharge Summary Discharge Rx Participant: No New Discharge Prescriptions: New Aspirin 81 mg PO DAILY chew Venlafaxine HCl ER [Effexor XR] 37.5 mg PO DAILY #14 cap.er.24h Melatonin 5 mg PO HS tablet Continue Simvastatin [Zocor] 40 mg PO HS 30 Days tab Diazepam [Valium] 10 mg PO TID PRN PRN Reason: Anxiety Divalproex Sodium [Depakote] 1,000 mg PO HS Tamsulosin HCl [Flomax] 0.4 mg PO HS Acetaminophen with Codeine [Tylenol with Codeine #4 Tablet] 1 tab PO Q6H PRN PRN Reason: Pain Divalproex Sodium [Depakote] 500 mg PO DAILY B Complex-Vit C-Vit E-Zinc [Z-Bec] 1 tab PO DAILY Discontinued Amitriptyline HCl [Elavil] 100 mg PO HS Discharge Medication List Simvastatin [Zocor] 40 mg PO HS 30 Days tab 10/21/16 [Rx] Diazepam [Valium] 10 mg PO TID PRN 01/15/17 [History] Divalproex Sodium [Depakote] 1,000 mg PO HS 03/20/17 [History] Tamsulosin HCl [Flomax] 0.4 mg PO HS 05/22/17 [History] Acetaminophen with Codeine [Tylenol with Codeine #4 Tablet] 1 tab PO Q6H PRN 05/06/19 [History] B Complex-Vit C-Vit E-Zinc [Z-Bec] 1 tab PO DAILY 05/06/19 [History] Divalproex Sodium [Depakote] 500 mg PO DAILY 05/06/19 [History] Aspirin 81 mg PO DAILY chew 05/10/19 [Rx] Melatonin 5 mg PO HS tablet 05/10/19 [Rx] Venlafaxine HCl ER [Effexor XR] 37.5 mg PO DAILY #14 cap.er.24h 05/10/19 [Rx] Follow up Appointment(s)/Referral(s): [facility] [Outside] - 05/13/19 12:30 pm Cassie Evans MD [Primary Care Provider] - 1-2 days Ambulatory/Diagnostic Orders: T4, Free (Free Thyroxine) [LAB.AMB] Time Frame: 3 Months, Location: None Selected TSH, 3rd Generation [LAB.AMB] Time Frame: 3 Months, Location: None Selected Patient Instructions/Handouts: Depression (DC), Suicide Prevention (DC) Activity/Diet/Wound Care/Special Instructions: Activity and diet as tolerated. No guns or weapons in the home. Refrain from drugs or alcohol not prescribed by your physician. Take all your medications as prescribed, and attend all follow up appointments as scheduled. If in need of refills for medications, please go to your out patient psychiatric provider, or your primary care physician. If in crisis, call or please go to the nearest ER for evaluation. Discharge Disposition: HOME SELF-CARE
== END 2019-05-10 12:50 | disposition home or self-care (01) | DRG 885 ==
LOC: EC 08:36 → 3MHU 16:19
PROVIDERS: ADMIT Psychiatry & Neurology Psychiatry; ATTEND Psychiatry & Neurology Psychiatry
DX: F33.9 Major depressive disorder, recurrent, unspecified (principal); R45.851 Suicidal ideations; E78.5 Hyperlipidemia, unspecified; Z71.6 Tobacco abuse counseling; F17.210 Nicotine dependence, cigarettes, uncomplicated; F41.9 Anxiety disorder, unspecified; G40.909 Epilepsy, unspecified, not intractable, without status epilepticus; G47.30 Sleep apnea, unspecified; G89.29 Other chronic pain; K21.9 Gastro-esophageal reflux disease without esophagitis; N20.0 Calculus of kidney; N40.1 Benign prostatic hyperplasia with lower urinary tract symptoms; R33.8 Other retention of urine; Z79.82 Long term (current) use of aspirin; Z79.899 Other long term (current) drug therapy; Z80.0 Family history of malignant neoplasm of digestive organs; Z82.49 Family history of ischemic heart disease and other diseases of the circulatory system; Z86.73 Personal history of transient ischemic attack (TIA), and cerebral infarction without residual deficits; Z87.442 Personal history of urinary calculi; Z98.1 Arthrodesis status; Z86.010 Personal history of colon polyps; Z91.5 Personal history of self-harm; Z82.61 Family history of arthritis
CPT/HCPCS: 36415; 74018; 80053; 80061; 80164; 80306; 80320; 81003; 82075; 83036; 83690; 84439; 84443; 85025; 96361; 96374; 96375; 99285

== ENCOUNTER 2019-06-03 13:12 | Emergency (ER) | payer MEDICAID, MEDICARE ==
[2019-06-03 14:15] VITALS: BP 107/70
[2019-06-03] MEDS ORDERED: LIDOCAINE URO-JET JELLY 2% 5 ML KIT URETHRAL ONE (16:13)
[2019-06-03] MEDS ORDERED: MORPHINE SULFATE 4 MG/ML SYRINGE IM STA (16:34)
[2019-06-03] MEDS ORDERED: TAMSULOSIN 0.4 MG CAP.ER.24H PO STA (16:34)
--- NOTE | 2019-06-03 17:06 | ED ---
Abdominal Pain HPI - General Chief Complaint: Abdominal Pain Stated Complaint: kidney stones-difficult urination Time Seen by Provider: 06/03/19 15:52 Source: patient Mode of arrival: ambulatory Limitations: no limitations - History of Present Illness Initial Comments: Patient is a 44-year-old male with history of kidney stones presents emergency department with a chief complaint of can't urinate. Patient reports she was recently diagnosed with multiple kidney stones and given pain control and Flomax. Patient reports he has not been able to urinate since last night. Patient reports a "full bladder." Patient reports penile pain. Patient reports that he can feel a stone in his penis but is unaware of the exact location of it. Patient reports waxing and waning pain and rates it a 7. Patient also reports gross hematuria past 2 days. Patient reports taking Tylenol for, ibuprofen and regular Tylenol for pain control. Patient denies fever, nausea or vomiting. Patient denies testicular swelling or pain. - Related Data Home Medications Medication Instructions Recorded Confirmed Divalproex Sodium [Depakote] 1,000 mg PO HS 03/20/17 06/03/19 Tamsulosin HCl [Flomax] 0.4 mg PO BID 05/22/17 06/03/19 Acetaminophen with Codeine 1 tab PO Q6H PRN 05/06/19 06/03/19 [Tylenol with Codeine #4 Tablet] Divalproex Sodium [Depakote] 500 mg PO DAILY 05/06/19 06/03/19 Aspirin EC [Ecotrin Low Dose] 81 mg PO DAILY 06/03/19 06/03/19 Diazepam [Valium] 10 mg PO Q8H PRN 06/03/19 06/03/19 Gabapentin 800 mg PO TID 06/03/19 06/03/19 Methocarbamol [Robaxin-750] 750 mg PO Q8H PRN 06/03/19 06/03/19 Previous Rx's Medication Instructions Recorded Simvastatin [Zocor] 40 mg PO HS 30 Days tab 10/21/16 Melatonin 5 mg PO HS tablet 05/10/19 Allergies Allergy/AdvReac Type Severity Reaction Status Date / Time No Known Allergies Allergy Verified 06/03/19 15:26 Review of Systems ROS Statement: Those systems with pertinent positive or pertinent negative responses have been documented in the HPI. ROS Other: All systems not noted in ROS Statement are negative. Past Medical History Past Medical History: GERD/Reflux, Hyperlipidemia, Osteoarthritis (OA), Seizure Disorder Additional Past Medical History / Comment(s): Chronic back pain, herniated disc, kidney stone, LAST SEIZURE 05/06/2019 History of Any Multi-Drug Resistant Organisms: None Reported Past Surgical History: Hernia Repair, Orthopedic Surgery Additional Past Surgical History / Comment(s): Cervical fusion ACDF 2009, carpel tunnel, left knee arthroscopic surgery, polyp removal, hemorrhage surgery hemorrhoid surgery, rectal warts, sinus surgery, PAIN CLINIC PROCEDURES. Nov 2018, Back surgery Past Anesthesia/Blood Transfusion Reactions: No Reported Reaction Past Psychological History: Anxiety, Depression Smoking Status: Current every day smoker Past Alcohol Use History: None Reported Past Drug Use History: None Reported - Past Family History Mother Family Medical History: Hyperlipidemia, Hypertension, Osteoarthritis (OA) Additional Family Medical History / Comment(s): Mom is alive at 70 years of age Father Family Medical History: Cancer, Liver Disease Additional Family Medical History / Comment(s): Dad at age 60 from liver cancer, hepatitis C, cirrhosis. Sister(s) Family Medical History: No Reported History Daughter(s) Family Medical History: No Reported History Son(s) Family Medical History: No Reported History Additional Family Medical History / Comment(s): Patient states he has 4 sisters that are healthy. General Exam Limitations: no limitations General appearance: alert, in no apparent distress Head exam: Present: atraumatic, normocephalic, normal inspection Eye exam: Present: normal appearance, PERRL, EOMI. Absent: conjunctival inje ction Pupils: Present: normal accommodation ENT exam: Present: normal exam, normal oropharynx, mucous membranes moist, TM's normal bilaterally, normal external ear exam Neck exam: Present: normal inspection, full ROM. Absent: tenderness Respiratory exam: Present: normal lung sounds bilaterally Cardiovascular Exam: Present: regular rate, normal rhythm, normal heart sounds GI/Abdominal exam: Present: soft, normal bowel sounds. Absent: distended Extremities exam: Present: normal inspection, full ROM Back exam: Present: normal inspection, full ROM, CVA tenderness (L) Neurological exam: Present: alert, oriented X3 Psychiatric exam: Present: normal affect, normal mood Skin exam: Present: warm, intact, normal color Course Vital Signs 06/03/19 06/03/19 14:11 17:26 Temperature 98 F 97.9 F Pulse Rate 79 82 Respiratory 18 16 Rate Blood Pressure 107/70 O2 Sat by Pulse 99 99 Oximetry Medical Decision Making - Medical Decision Making patient is a 44-year-old male with history of kidney stones presenting to emergency Department with a chief complaint of can't urinate. Bladder scan shows 400 mL of urine. Inserting a Cosby catheter at this time would be counterintuitive as it would push the stone back into the bladder. Patient given morphine for pain control. Patient also given Flomax. I advised the patient to continue drinking water and continue using pain control in order to push the stone. Patient vised alternate between Tylenol ibuprofen for pain control. Patient reports he has Tylenol for from his previous surgery and uses them for pain control As needed. Patient denies any nausea or vomiting. Patient is to follow-up with urology. Strict return parameters were thoroughly discussed the patient was understanding and agreeable. Case discussed with physician. Disposition Clinical Impression: Kidney stones Disposition: HOME SELF-CARE Condition: Stable Instructions (If sedation given, give patient instructions): Kidney Stones (ED) Additional Instructions: Please continue using Flomax. Please drink lots of fluids. Alternate between Tylenol and ibuprofen for pain control. Please return to emergency department if symptoms worsen. Is patient prescribed a controlled substance at d/c from ED?: No Referrals: Cassie Evans MD [Primary Care Provider] - 1-2 days Time of Disposition: 17:06
[2019-06-03 17:27] VITALS: PULSE 82; RESP 16; TEMP 97.9
== END 2019-06-03 17:20 | disposition home or self-care (01) ==
LOC: EC 13:12
DX: N20.0 Calculus of kidney (principal); G40.909 Epilepsy, unspecified, not intractable, without status epilepticus; F41.9 Anxiety disorder, unspecified; F32.9 Major depressive disorder, single episode, unspecified; F17.200 Nicotine dependence, unspecified, uncomplicated; Z79.82 Long term (current) use of aspirin; Z79.899 Other long term (current) drug therapy; Z98.1 Arthrodesis status
CPT/HCPCS: 99283; 96372; J2270

== ENCOUNTER 2019-12-06 09:08 | Day surgery (SDC) | payer MEDICARE, OTHER ==
[2019-12-04 15:18] VITALS: BMI 28.7
[~2019-12-06 09:08] MED LIST changes: +DEXAMETHASONE SOD PHOSPHATE 10 MG/ML 1 ML VIAL IV ONE; +HYDROmorphone 0.5 MG/0.5 ML SYRINGE IVP PRN; +MIDAZOLAM 2 MG/2 ML VIAL IV PRN; +ONDANSETRON 4 MG/2 ML VIAL IVP ONE; +Pre Op ABX Message 1 EACH MISC MISCELLANE ONE; +SCOPOLAMINE 1.5MG/72HR PATCH TRANSDERM ONE
[2019-12-06 09:32] VITALS: RESP 16; TEMP 97.5
[2019-12-06] MEDS ORDERED: LIDOCAINE 1% (10MG/ML) FOR IV START INTRADERMA ONE (10:10)
[2019-12-06] MEDS ORDERED: MIDAZOLAM 2 MG/2 ML VIAL IVP ONE ×2 (10:27→10:32)
--- NOTE | 2019-12-06 10:45 | P.GSHP ---
History of Present Illness H&P Date: 12/06/19 CHIEF COMPLAINT: Painful lesions along the arm HISTORY OF PRESENT ILLNESS: The patient is a 44 year-old male with history of lipomas of the foream. He presents today for surgical excision. PAST MEDICAL HISTORY: Please see list. PAST SURGICAL HISTORY: Please see list. MEDICATIONS: Please see list. ALLERGIES: Please see list. SOCIAL HISTORY:Please see list. FAMILY HISTORY: No reports of Crohn disease or ulcerative colitis. REVIEW OF ORGAN SYSTEMS: CONSTITUTIONAL: No reports of fevers or chills. GI: Denies any blood in stools or constipation. PHYSICAL EXAM: VITAL SIGNS: Stable Musculoskeletal: Approximately 3 cm lipomas, superficial, along the arm GENERAL: Well developed and in no acute distress. Pleasant. HEENT: No sclera icterus. Extraocular movements grossly intact. Moist buccal mucosa. Head is atraumatic, normocephalic. Hears conversational speech. No nasal drainage. NECK: Supple without lymphadenopathy. No JV distention. CHEST: Non-labored respirations and equal bilateral excursions. CARDIOVASCULAR: Regular rate and rhythm. Palpable 2+ radial pulses. ABDOMEN: Soft. Non-tender. Nondistended. NEUROLOGIC: No focal or lateralizing signs. PSYCH: Appropriate affect. Alert and oriented to person, place and time. ASSESSMENT: 1. Lipomas along the arm PLAN: 1. Will proceed of excision of subcutaneous tumors along the arm 2. DVT prophylaxis. 3. Antibiotic prophylaxis. 4. Time of recovery, at least one week. Past Medical History Past Medical History: GERD/Reflux, Hyperlipidemia, Osteoarthritis (OA), Seizure Disorder, Sleep Apnea/CPAP/BIPAP Additional Past Medical History / Comment(s): steroid injection to back 11-21-19,Chronic back pain, herniated disc, kidney stone, LAST SEIZURE 05/06/2019,no cpap, neuropathy arms and legs History of Any Multi-Drug Resistant Organisms: None Reported Past Surgical History: Hernia Repair, Orthopedic Surgery Additional Past Surgical History / Comment(s): Cervical fusion 2009, shah[place] carpel tunnel, left knee arthroscopic surgery, polyp removal, hemorrhoid surgery, rectal warts, sinus surgery, PAIN CLINIC PROCEDURES. Nov 2018, lumbar fusion,hernia surg x2 Past Anesthesia/Blood Transfusion Reactions: No Reported Reaction Smoking Status: Current every day smoker - Past Family History Mother Family Medical History: Hyperlipidemia, Hypertension, Osteoarthritis (OA) Additional Family Medical History / Comment(s): Mom is alive at 70 years of age Father Family Medical History: Cancer, Liver Disease Additional Family Medical History / Comment(s): Dad at age 60 from liver cancer, hepatitis C, cirrhosis. Sister(s) Family Medical History: Cancer Additional Family Medical History / Comment(s): breast Daughter(s) Family Medical History: No Reported History Son(s) Family Medical History: No Reported History Additional Family Medical History / Comment(s): Patient states he has 4 sisters that are healthy. Medications and Allergies Home Medications Medication Instructions Recorded Confirmed Type Simvastatin [Zocor] 40 mg PO HS 30 Days tab 10/21/16 12/06/19 Rx Divalproex Sodium [Depakote] 1,000 mg PO HS 03/20/17 12/06/19 History Tamsulosin HCl [Flomax] 0.4 mg PO BID 05/22/17 12/06/19 History Divalproex Sodium [Depakote] 500 mg PO QAM 05/06/19 12/06/19 History Melatonin 5 mg PO HS tablet 05/10/19 12/06/19 Rx Aspirin EC [Ecotrin Low Dose] 81 mg PO DAILY 06/03/19 12/06/19 History Diazepam [Valium] 10 mg PO Q8H PRN 06/03/19 12/06/19 History Gabapentin 1,200 mg PO TID 06/03/19 12/06/19 History Methocarbamol [Robaxin-750] 750 mg PO Q8H PRN 06/03/19 12/06/19 History Venlafaxine HCl [Effexor] 75 mg PO QAM 12/04/19 12/06/19 History oxyCODONE-APAP 7.5-325MG [Percocet 1 tab PO Q6HR PRN 12/04/19 12/06/19 History 7.5-325 mg] Allergies Allergy/AdvReac Type Severity Reaction Status Date / Time No Known Allergies Allergy Verified 12/06/19 09:29 Surgical - Exam Vital Signs Temp Pulse Resp BP Pulse Ox 97.5 F L 77 16 113/63 99 12/06/19 09:31 12/06/19 09:31 12/06/19 09:31 12/06/19 09:31 12/06/19 09:31
--- NOTE | 2019-12-06 11:02 | P.HPADDEND ---
H&P Addendum H&P Addendum Date: 12/06/19 ASSESSMENT: 1. Left arm lipomas x 2. PLAN: 1. He currently smokes and tobacco cessation was described as this puts him at increased risk for perioperative complications. 2. Excision of left arm subcutaneous lipomas x2 was described. 3. Overall recovery at least a week.
[2019-12-06] MEDS ORDERED: MIDAZOLAM 2 MG/2 ML VIAL ONE (11:03)
[2019-12-06] MEDS ORDERED: PROPOFOL 10 MG/ML 20 ML VIAL IV ONE (11:03)
[2019-12-06] MEDS ORDERED: fentaNYL (PF) 50 MCG/ML 2 ML AMP ONE (11:03)
[2019-12-06] MEDS ORDERED: diphenhydrAMINE 50 MG/ML 1 ML VIAL ONE (11:03)
[2019-12-06] MEDS ORDERED: LIDOCAINE 1%-EPI 1:100,000 20 ML VIAL SQ ONE (11:33)
[2019-12-06 12:13] VITALS: BP 116/77; PULSE 79
--- NOTE | 2019-12-06 12:37 | P.OP ---
Date of Procedure: 12/06/19 Description of Procedure: SURGEON: ARABELLA HOPKINS MD C DEVELOPER: None. PREOPERATIVE DIAGNOSES: 1. Left posterior upper arm mass 2. Hypertensive heart disease 3. Tobacco abuse 4. Chronic pain syndrome 5. Depressive disorder 6. Seizure disorder 7. Hyperlipidemia POSTOPERATIVE DIAGNOSES: 1. Deep subcutaneous left posterior upper arm mass, over 2 cm 2. Hypertensive heart disease 3. Tobacco abuse 4. Chronic pain syndrome 5. Depressive disorder 6. Seizure disorder 7. Hyperlipidemia PROCEDURES PERFORMED: 1. Excision of deep subcutaneous posterior left upper arm mass, over 2 cm 2. Intermediate closure left posterior upper arm incision, 4 -cm Anesthesia: GETA, local Estimated Blood Loss (ml): 5 Pathology: other (shoulder mass) Condition: stable Disposition: same day COMPLICATIONS: None. FINDINGS: 1. Lipoma left posterior upper arm deep subcutaneous, over 2 cm INDICATIONS: The patient is a 44-year-old male who presents with symptomatic left posterior upper arm tumor. Benefits and risks of surgical intervention were described including bleeding, infection. Informed consent was obtained. DESCRIPTION OR PROCEDURE: In the preoperative area, the area of concern was marked with indelible marker. Patient was brought into the operating room. After general induction, he was positioned in right lateral decubitus position. The shouler was prepped and draped in a standard sterile fashion with ChloraPrep. Timeout protocol was confirmed with the surgical team regarding the patient's name, procedure to be performed including preoperative medications. DVT prophylaxis was confirmed with SCDs. A field block was placed of the left shoulder. A posterior transverse 4-cm incision made over the prominence of the mass using #15 blade. Electro-Bovie cautery including blunt dissection was used to circumferential dissect a lipoma that extended into the deep subcutaneous tissues of the left shoulder. The tumor was removed in total. The tumor was measured of 2.5 cm. Hemostasis was excellent. 3-0 Vicryl was placed for the deep subcutaneous tissue followed by 3-0 Monocryl for the dermis in a running subcuticular fashion. The skin was cleansed and Exofin tape with liquid was applied. The incision was covered with Optifoam dressing. Local anesthetic was placed. At the end of the procedure, needle, sponge, and instrument count was verified correct by nursing surgical services director. The patient tolerated the procedure well. Plan - Discharge Summary Discharge Rx Participant: No New Discharge Prescriptions: Continue Simvastatin [Zocor] 40 mg PO HS 30 Days tab Divalproex Sodium [Depakote] 1,000 mg PO HS Tamsulosin HCl [Flomax] 0.4 mg PO BID Divalproex Sodium [Depakote] 500 mg PO QAM Melatonin 5 mg PO HS tablet Gabapentin 1,200 mg PO TID Diazepam [Valium] 10 mg PO Q8H PRN PRN Reason: muscle pain/anxiety Aspirin EC [Ecotrin Low Dose] 81 mg PO DAILY Methocarbamol [Robaxin-750] 750 mg PO Q8H PRN PRN Reason: Muscle Spasm oxyCODONE-APAP 7.5-325MG [Percocet 7.5-325 mg] 1 tab PO Q6HR PRN PRN Reason: Pain Venlafaxine HCl [Effexor] 75 mg PO QAM Discharge Medication List Simvastatin [Zocor] 40 mg PO HS 30 Days tab 10/21/16 [Rx] Divalproex Sodium [Depakote] 1,000 mg PO HS 03/20/17 [History] Tamsulosin HCl [Flomax] 0.4 mg PO BID 05/22/17 [History] Divalproex Sodium [Depakote] 500 mg PO QAM 05/06/19 [History] Melatonin 5 mg PO HS tablet 05/10/19 [Rx] Aspirin EC [Ecotrin Low Dose] 81 mg PO DAILY 06/03/19 [History] Diazepam [Valium] 10 mg PO Q8H PRN 06/03/19 [History] Gabapentin 1,200 mg PO TID 06/03/19 [History] Methocarbamol [Robaxin-750] 750 mg PO Q8H PRN 06/03/19 [History] Venlafaxine HCl [Effexor] 75 mg PO QAM 12/04/19 [History] oxyCODONE-APAP 7.5-325MG [Percocet 7.5-325 mg] 1 tab PO Q6HR PRN 12/04/19 [History] Follow up Appointment(s)/Referral(s): Arabella Hopkins MD [STAFF PHYSICIAN] - 12/10/19 Patient Instructions/Handouts: *Surgery [facility] - (Anesthesia) Discharge Instructions Outpatient Surgery, Excision of Skin Lesion (DC) Activity/Diet/Wound Care/Special Instructions: DO NOT REMOVE DRESSING! Will be removed by surgeon in office. May shower. No bath tub soaks for 1 week, December 12. Diet as tolerated. No driving while on narcotics. Use Tylenol and ibuprofen or Aleve scheduled for the next 24-48 hours for best p ain relief. Use ice along incisions for the today to prevent swelling. Discharge Disposition: HOME SELF-CARE
== END 2019-12-06 12:47 | disposition home or self-care (01) ==
LOC: OR 09:08
PROVIDERS: ATTEND Surgery Plastic and Reconstructive Surgery
DX: D17.22 Benign lipomatous neoplasm of skin and subcutaneous tissue of left arm (principal); I11.9 Hypertensive heart disease without heart failure; G89.4 Chronic pain syndrome; F32.9 Major depressive disorder, single episode, unspecified; G40.909 Epilepsy, unspecified, not intractable, without status epilepticus; E78.5 Hyperlipidemia, unspecified; G47.33 Obstructive sleep apnea (adult) (pediatric); K21.9 Gastro-esophageal reflux disease without esophagitis; F41.9 Anxiety disorder, unspecified; M19.90 Unspecified osteoarthritis, unspecified site; F17.200 Nicotine dependence, unspecified, uncomplicated; Z98.1 Arthrodesis status; Z87.442 Personal history of urinary calculi; Z79.82 Long term (current) use of aspirin; Z79.899 Other long term (current) drug therapy; Z88.8 Allergy status to other drugs, medicaments and biological substances; G62.9 Polyneuropathy, unspecified; Z98.890 Other specified postprocedural states; Z87.19 Personal history of other diseases of the digestive system; Z82.61 Family history of arthritis; Z82.49 Family history of ischemic heart disease and other diseases of the circulatory system; Z80.0 Family history of malignant neoplasm of digestive organs; Z80.3 Family history of malignant neoplasm of breast
CPT/HCPCS: 88304; 23075; J2250; J1200; J1100; J0690; J2405; J3010; J2704

== ENCOUNTER 2020-03-15 16:40 | Emergency (ER) | payer MEDICARE, OTHER ==
[2020-03-15 16:45] VITALS: BP 131/84; PULSE 100; RESP 17; TEMP 97.7
[2020-03-15] MEDS ORDERED: ORPHENADRINE 30 MG/ML 2 ML VIAL IM STA (17:23)
[2020-03-15] MEDS ORDERED: KETOROLAC 30 MG/ML 1 ML VIAL IM STA (17:23)
--- NOTE | 2020-03-15 17:35 | ED ---
Lower Extremity Injury HPI - General Chief Complaint: Extremity Injury, Lower Stated Complaint: L leg injury Time Seen by Provider: 03/15/20 17:00 Source: patient Mode of arrival: ambulatory Limitations: no limitations - History of Present Illness Initial Comments: 44-year-old male patient presents to the emergency department today for evaluation of left posterior thigh pain. Patient states the pain started on Monday when he was lifting a lawnmower. Patient states he felt a pop in the back of his leg has been having significant pain since then. Patient states it is very tender to touch. He is increased pain with ambulating. States he does have some tingling in his foot that he does have chronic pain issues and this is usual for him. Patient does take Percocet at home from his pain doctor, states this isn't helping. He also takes Robaxin for muscle relaxer. Denies any anti- inflammatories. States he has been alternating ice and heat to the area. Denies any other injuries. Patient denies any headache, neck pain, back pain, chest pain, shortness of breath, dizziness, weakness, abdominal pain, nausea, vomiting, or difficulties with bowel movements or urination. - Related Data Home Medications Medication Instructions Recorded Confirmed Divalproex Sodium [Depakote] 1,000 mg PO HS 03/20/17 12/06/19 Tamsulosin HCl [Flomax] 0.4 mg PO BID 05/22/17 12/06/19 Divalproex Sodium [Depakote] 500 mg PO QAM 05/06/19 12/06/19 Aspirin EC [Ecotrin Low Dose] 81 mg PO DAILY 06/03/19 12/06/19 Diazepam [Valium] 10 mg PO Q8H PRN 06/03/19 12/06/19 Gabapentin 1,200 mg PO TID 06/03/19 12/06/19 Methocarbamol [Robaxin-750] 750 mg PO Q8H PRN 06/03/19 12/06/19 Venlafaxine HCl [Effexor] 75 mg PO QAM 12/04/19 12/06/19 oxyCODONE-APAP 7.5-325MG [Percocet 1 tab PO Q6HR PRN 12/04/19 12/06/19 7.5-325 mg] Previous Rx's Medication Instructions Recorded Simvastatin [Zocor] 40 mg PO HS 30 Days tab 10/21/16 Melatonin 5 mg PO HS tablet 05/10/19 Ibuprofen [Motrin] 600 mg PO Q8HR PRN #30 tab 03/15/20 Allergies Allergy/AdvReac Type Severity Reaction Status Date / Time No Known Allergies Allergy Verified 03/15/20 16:44 Review of Systems ROS Statement: Those systems with pertinent positive or pertinent negative responses have been documented in the HPI. ROS Other: All systems not noted in ROS Statement are negative. Past Medical History Past Medical History: GERD/Reflux, Hyperlipidemia, Osteoarthritis (OA), Seizure Disorder, Sleep Apnea/CPAP/BIPAP Additional Past Medical History / Comment(s): steroid injection to back 11-21-19,Chronic back pain, herniated disc, kidney stone, LAST SEIZURE 05/06/2019,no cpap, neuropathy arms and legs History of Any Multi-Drug Resistant Organisms: None Reported Past Surgical History: Hernia Repair, Orthopedic Surgery Additional Past Surgical History / Comment(s): Cervical fusion 2009, [place] carpel tunnel, left knee arthroscopic surgery, polyp removal, hemorrhoid surgery, rectal warts, sinus surgery, PAIN CLINIC PROCEDURES. Nov 2018, lumbar fusion,hernia surg x2, Past Anesthesia/Blood Transfusion Reactions: No Reported Reaction Past Psychological History: Anxiety, Depression Smoking Status: Current every day smoker Past Alcohol Use History: None Reported Past Drug Use History: None Reported - Past Family History Mother Family Medical History: Hyperlipidemia, Hypertension, Osteoarthritis (OA) Additional Family Medical History / Comment(s): Mom is alive at 70 years of age Father Family Medical History: Cancer, Liver Disease Additional Family Medical History / Comment(s): Dad at age 60 from liver cancer, hepatitis C, cirrhosis. Sister(s) Family Medical History: Cancer Additional Family Medical History / Comment(s): breast Daughter(s) Family Medical History: No Reported History Son(s) Family Medical History: No Reported History Additional Family Medical History / Comment(s): Patient states he has 4 sisters that are healthy. General Exam Limitations: no limitations General appearance: alert, in no apparent distress, other (This is a well- developed, well-nourished adult male patient in no acute distress. Vital signs upon presentation are temperature 97.7F, pulse 100, respirations 17, blood pressure 131/84, pulse ox 99% on room air.) Eye exam: Present: normal appearance, PERRL, EOMI. Absent: scleral icterus, conjunctival injection, periorbital swelling ENT exam: Present: normal exam, normal oropharynx, mucous membranes moist Respiratory exam: Present: normal lung sounds bilaterally. Absent: respiratory distress, wheezes, rales, rhonchi, stridor Cardiovascular Exam: Present: regular rate, normal rhythm, normal heart sounds. Absent: systolic murmur, diastolic murmur, rubs, gallop, clicks Extremities exam: Present: normal inspection, full ROM, tenderness (Left posterior thigh), normal capillary refill, other (There is tenderness over the posterior left thigh. Skin is intact with no erythema or ecchymosis. Appearance is similar to the right thigh with no swelling. Skin is pink, warm, dry. Cap refill is less than 3 seconds. Pedal and posttibial pulses are 2+ and equal bilaterally.). Absent: pedal edema, joint swelling, calf tenderness Neurological exam: Present: alert, oriented X3, CN II-XII intact Psychiatric exam: Present: normal affect, normal mood Skin exam: Present: warm, dry, intact, normal color. Absent: rash Course Vital Signs 03/15/20 16:42 Temperature 97.7 F Pulse Rate 100 Respiratory 17 Rate Blood Pressure 131/84 O2 Sat by Pulse 99 Oximetry Medical Decision Making - Medical Decision Making 34-year-old male patient presents to the emergency department today for evaluation of left posterior thigh pain. Physical examination is unremarkable. Neurovascular status is intact. Patient is using a cane to ambulate. He did give IM doses of Norflex and Toradol. He does have Percocet at home. Bony injury is very unlikely so x-rays were not performed. Symptoms are consistent with a muscle strain. We will give ibuprofen prescription. He is instructed to follow-up with orthopedics if his symptoms don't improve. He is instructed follow-up with his primary care physician for recheck in 1-2 days. Return parameters discussed in detail. He verbalizes understanding and agrees with this plan. Disposition Clinical Impression: Muscle strain of left thigh Disposition: HOME SELF-CARE Condition: Good Instructions (If sedation given, give patient instructions): Muscle Strain (ED) Additional Instructions: Continue to alternate ice and heat to the area. Add anti-inflammatory medication to your pain regimen. Follow-up with your primary care physician for recheck in 1-2 days. Follow-up with orthopedics if her symptoms aren't improved over the next 7-10 days. Return to the emergency department immediately for any new, worsening, or concerning symptoms. Prescriptions: Ibuprofen [Motrin] 600 mg PO Q8HR PRN #30 tab PRN Reason: Pain Is patient prescribed a controlled substance at d/c from ED?: No Referrals: Cassie Evans MD [Primary Care Provider] - 1-2 days Isabel Almaraz DO [Doctor of Osteopathic Medicine] - 1-2 days Time of Disposition: 17:44
== END 2020-03-15 17:59 | disposition home or self-care (01) ==
LOC: EC 16:40
DX: S76.912A Strain of unspecified muscles, fascia and tendons at thigh level, left thigh, initial encounter (principal); G40.909 Epilepsy, unspecified, not intractable, without status epilepticus; G47.30 Sleep apnea, unspecified; F41.9 Anxiety disorder, unspecified; F32.9 Major depressive disorder, single episode, unspecified; G62.9 Polyneuropathy, unspecified; F17.200 Nicotine dependence, unspecified, uncomplicated; Z79.82 Long term (current) use of aspirin; Z79.899 Other long term (current) drug therapy; Z98.1 Arthrodesis status; Z99.89 Dependence on other enabling machines and devices; X50.9XXA Other and unspecified overexertion or strenuous movements or postures, initial encounter
CPT/HCPCS: 99283; 96372 ×2; J2360; J1885

== ENCOUNTER 2020-06-25 11:26 | Emergency (ER) | payer MEDICARE, OTHER ==
[2020-06-25 11:36] VITALS: RESP 18
--- NOTE | 2020-06-25 11:44 | ED ---
Abdominal Pain HPI - General Source: patient Mode of arrival: ambulatory Limitations: no limitations <Hector Becker - Last Filed: 06/25/20 19:25> <Shelley Hernandez - Last Filed: 06/26/20 18:30> - General Chief Complaint: Abdominal Pain Stated Complaint: Abd pain Time Seen by Provider: 06/25/20 11:43 - History of Present Illness Initial Comments: Patient is a 45 year old male with history of IBS presenting to the emergency room with chief complaint abdominal pain. Patient states patient states recently he was started on Bentyl and another medication for GERD by his primary care physician with no significant improvement in symptoms. Patient reports most of his pain is located in the right lower and right upper quadrant region. Patient states pain is usually postprandial. He also reports black stools over the last 1-2 days but denies any hematochezia. Patient states she has experienced this type of pain before but never lasted this long. Denies any penile discharge, testicular pain or swelling. Denies any nausea or vomiting. Denies any night sweats or chills. Denies alcohol use. (Hector Becker) - Related Data Home Medications Medication Instructions Recorded Confirmed Divalproex Sodium [Depakote] 1,000 mg PO HS 03/20/17 06/25/20 Tamsulosin HCl [Flomax] 0.4 mg PO DAILY 05/22/17 06/25/20 Divalproex Sodium [Depakote] 500 mg PO QAM 05/06/19 06/25/20 Aspirin EC [Ecotrin Low Dose] 81 mg PO DAILY 06/03/19 06/25/20 Diazepam [Valium] 10 mg PO Q8H PRN 06/03/19 06/25/20 Methocarbamol [Robaxin-750] 750 mg PO Q8H PRN 06/03/19 06/25/20 Venlafaxine HCl [Effexor] 75 mg PO QAM 12/04/19 06/25/20 Dicyclomine [Bentyl] 20 mg PO QID 06/25/20 06/25/20 Lansoprazole [Prevacid] 15 mg PO DAILY 06/25/20 06/25/20 oxyCODONE HCL/ACETAMINOPHEN 1 tab PO TID PRN 06/25/20 06/25/20 [Percocet 10-325 mg] Previous Rx's Medication Instructions Recorded Simvastatin [Zocor] 40 mg PO HS 30 Days tab 10/21/16 Allergies Allergy/AdvReac Type Severity Reaction Status Date / Time No Known Allergies Allergy Verified 06/25/20 12:54 Review of Systems ROS Other: All systems not noted in ROS Statement are negative. <Hector Becker - Last Filed: 06/25/20 19:25> ROS Other: All systems not noted in ROS Statement are negative. <Shelley Hernandez - Last Filed: 06/26/20 18:30> ROS Statement: Those systems with pertinent positive or pertinent negative responses have been documented in the HPI. Past Medical History Past Medical History: GERD/Reflux, Hyperlipidemia, Osteoarthritis (OA), Seizure Disorder, Sleep Apnea/CPAP/BIPAP Additional Past Medical History / Comment(s): steroid injection to back 11-21-19,Chronic back pain, herniated disc, kidney stone, LAST SEIZURE 05/06/2019 ,no cpap, neuropathy arms and legs History of Any Multi-Drug Resistant Organisms: None Reported Past Surgical History: Hernia Repair, Orthopedic Surgery Additional Past Surgical History / Comment(s): Cervical fusion 2009, shahida carpel tunnel, left knee arthroscopic surgery, polyp removal, hemorrhoid surgery, rectal warts, sinus surgery, PAIN CLINIC PROCEDURES. Nov 2018, lumbar fusion,hernia surg x2, Past Anesthesia/Blood Transfusion Reactions: No Reported Reaction Past Psychological History: Anxiety, Depression Smoking Status: Current every day smoker Past Alcohol Use History: None Reported Past Drug Use History: Marijuana - Past Family History Mother Family Medical History: Hyperlipidemia, Hypertension, Osteoarthritis (OA) Additional Family Medical History / Comment(s): Mom is alive at 70 years of age Father Family Medical History: Cancer, Liver Disease Additional Family Medical History / Comment(s): Dad at age 60 from liver cancer, hepatitis C, cirrhosis. Sister(s) Family Medical History: Cancer Additional Family Medical History / Comment(s): breast Daughter(s) Family Medical History: No Reported History Son(s) Family Medical History: No Reported History Additional Family Medical History / Comment(s): Patient states he has 4 sisters that are healthy. <Hector Becker - Last Filed: 06/25/20 19:25> General Exam Limitations: no limitations General appearance: alert, in no apparent distress, obese Head exam: Present: atraumatic, normocephalic, normal inspection Eye exam: Present: normal appearance, PERRL, EOMI Pupils: Present: normal accommodation ENT exam: Present: normal exam, normal oropharynx, mucous membranes moist, TM's normal bilaterally, normal external ear exam Neck exam: Present: normal inspection, full ROM Respiratory exam: Present: normal lung sounds bilaterally. Absent: respiratory distress, wheezes, rales Cardiovascular Exam: Present: regular rate, normal rhythm, normal heart sounds GI/Abdominal exam: Present: soft, tenderness (Positive McBurney point tenderness. Negative Rovsing negative obturator negative psoas. Positive Crowe sign.). Absent: distended, guarding, rebound, rigid Rectal exam: Present: normal inspection, normal rectal tone. Absent: black stool Extremities exam: Present: normal inspection, full ROM, normal capillary refill. Absent: tenderness Back exam: Present: normal inspection, full ROM, tenderness, CVA tenderness (R) Neurological exam: Present: alert, oriented X3 Psychiatric exam: Present: normal affect, normal mood Skin exam: Present: warm, dry, intact, normal color <Hector Becker - Last Filed: 06/25/20 19:25> Course Vital Signs 06/25/20 06/25/20 06/25/20 11:32 13:25 14:27 Temperature 98 F 98.4 F Pulse Rate 77 62 60 Respiratory 18 18 18 Rate Blood Pressure 132/86 106/87 113/65 O2 Sat by Pulse 100 98 99 Oximetry Medical Decision Making - Lab Data Result diagrams: 06/25/20 12:30 06/25/20 12:30 <Hector Becker - Last Filed: 06/25/20 19:25> - Lab Data Result diagrams: 06/25/20 12:30 06/25/20 12:30 <Shelley Hernandez - Last Filed: 06/26/20 18:30> - Medical Decision Making Patient is a 45-year-old male with history of IBS presenting to emergency Department with a chief complaint of abdominal pain. On physical examination patient has right upper and right lower abdominal pain. Positive McBurney point and Crowe sign. Patient was recently started on Bentyl. Occult stool was negative. Patient is not anemic, he actually has elevated hemoglobin level is. CMP and UA are unremarkable. CT of abdomen and pelvis shows a nonacute abdomen. No signs of appendicitis or abnormalities related to the gallbladder. Patient was given analgesia, antiemetics and fluids. EKG shows sinus rhythm. On reevaluation, patient reports improvement in his symptoms and feels comfortable going home. I advised him to follow up with a GI specialist. Strict return parameters were thoroughly discussed the patient was understanding and agreeable. Case discussed with physician. (Hector Becker) I was available for consultation in the emergency department. The history and physical exam were done by the midlevel provider. I was consulted for this patients care. I reviewed the case with the midlevel provider and based on their presentation of the patient, I agree with the assessment, medical decision making and plan of care as documented. Chart was dictated using [employer] dictation software. Attempts were made to correct any dictation errors however some typographical errors may persist. Patient was seen during a national state of emergency due to the Covid-19 pandemic. (Shelley Hernandez) - Lab Data Lab Results 06/25/20 06/25/20 06/25/20 Range/Units 12:30 12:30 12:30 WBC 5.5 (3.8-10.6) k/uL RBC 5.80 (4.30-5.90) m/uL Hgb 17.8 H (13.0-17.5) gm/dL Hct 53.6 H (39.0-53.0) % MCV 92.3 (80.0-100.0) fL MCH 30.6 (25.0-35.0) pg MCHC 33.1 (31.0-37.0) g/dL RDW 12.7 (11.5-15.5) % Plt Count 157 (150-450) k/uL Neutrophils % 55 % Lymphocytes % 35 % Monocytes % 6 % Eosinophils % 1 % Basophils % 1 % Neutrophils # 3.0 (1.3-7.7) k/uL Lymphocytes # 2.0 (1.0-4.8) k/uL Monocytes # 0.4 (0-1.0) k/uL Eosinophils # 0.1 (0-0.7) k/uL Basophils # 0.0 (0-0.2) k/uL Sodium 139 (137-145) mmol/L Potassium 4.7 (3.5-5.1) mmol/L Chloride 110 H (98-107) mmol/L Carbon Dioxide 24 (22-30) mmol/L Anion Gap 5 mmol/L BUN 12 (9-20) mg/dL Creatinine 0.86 (0.66-1.25) mg/dL Est GFR (CKD-EPI)AfAm >90 (>60 ml/min/1.73 sqM) Est GFR (CKD-EPI)NonAf >90 (>60 ml/min/1.73 sqM) Glucose 117 H (74-99) mg/dL Plasma Lactic Acid [place] (0.7-2.0) mmol/L Calcium 9.0 (8.4-10.2) mg/dL Total Bilirubin 0.4 (0.2-1.3) mg/dL AST 25 (17-59) U/L ALT 18 (4-49) U/L Alkaline Phosphatase 48 (38-126) U/L Troponin I (0.000-0.034) ng/mL Total Protein 5.9 L (6.3-8.2) g/dL Albumin 3.8 (3.5-5.0) g/dL Lipase 82 (23-300) U/L Urine Color Urine Appearance (Clear) Urine pH (5.0-8.0) Ur Specific [place] (1.001-1.035) Urine Protein (Negative) Urine Glucose (UA) (Negative) Urine Ketones (Negative) Urine Blood (Negative) Urine Nitrite (Negative) Urine Bilirubin (Negative) Urine Urobilinogen (<2.0) mg/dL Ur Leukocyte Esterase (Negative) Stool Occult Blood Negative (Negative) Blood Type Blood Type Confirm Blood Type Recheck Bld Type Recheck Status Antibody Screen Spec Expiration Date 06/25/20 06/25/20 06/25/20 Range/Units 12:30 12:30 12:30 WBC (3.8-10.6) k/uL RBC (4.30-5.90) m/uL Hgb (13.0-17.5) gm/dL Hct (39.0-53.0) % MCV (80.0-100.0) fL MCH (25.0-35.0) pg MCHC (31.0-37.0) g/dL RDW (11.5-15.5) % Plt Count (150-450) k/uL Neutrophils % % Lymphocytes % % Monocytes % % Eosinophils % % Basophils % % Neutrophils # (1.3-7.7) k/uL Lymphocytes # (1.0-4.8) k/uL Monocytes # (0-1.0) k/uL Eosinophils # (0-0.7) k/uL Basophils # (0-0.2) k/uL Sodium (137-145) mmol/L Potassium (3.5-5.1) mmol/L Chloride (98-107) mmol/L Carbon Dioxide (22-30) mmol/L Anion Gap mmol/L BUN (9-20) mg/dL Creatinine (0.66-1.25) mg/dL Est GFR (CKD-EPI)AfAm (>60 ml/min/1.73 sqM) Est GFR (CKD-EPI)NonAf (>60 ml/min/1.73 sqM) Glucose (74-99) mg/dL Plasma Lactic Acid [place] 1.3 (0.7-2.0) mmol/L Calcium (8.4-10.2) mg/dL Total Bilirubin (0.2-1.3) mg/dL AST (17-59) U/L ALT (4-49) U/L Alkaline Phosphatase (38-126) U/L Troponin I <0.012 (0.000-0.034) ng/mL Total Protein (6.3-8.2) g/dL Albumin (3.5-5.0) g/dL Lipase (23-300) U/L Urine Color Urine Appearance (Clear) Urine pH (5.0-8.0) Ur Specific [place] (1.001-1.035) Urine Protein (Negative) Urine Glucose (UA) (Negative) Urine Ketones (Negative) Urine Blood (Negative) Urine Nitrite (Negative) Urine Bilirubin (Negative) Urine Urobilinogen (<2.0) mg/dL Ur Leukocyte Esterase (Negative) Stool Occult Blood (Negative) Blood Type A Negative Blood Type Confirm Blood Type Recheck No Previous Record Bld Type Recheck Status CABO Indicated Antibody Screen NEGATIVE Spec Expiration Date 06/28/2020 - 232906/25/20 06/25/20 Range/Units 12:30 13:11 WBC (3.8-10.6) k/uL RBC (4.30-5.90) m/uL Hgb (13.0-17.5) gm/dL Hct (39.0-53.0) % MCV (80.0-100.0) fL MCH (25.0-35.0) pg MCHC (31.0-37.0) g/dL RDW (11.5-15.5) % Plt Count (150-450) k/uL Neutrophils % % Lymphocytes % % Monocytes % % Eosinophils % % Basophils % % Neutrophils # (1.3-7.7) k/uL Lymphocytes # (1.0-4.8) k/uL Monocytes # (0-1.0) k/uL Eosinophils # (0-0.7) k/uL Basophils # (0-0.2) k/uL Sodium (137-145) mmol/L Potassium (3.5-5.1) mmol/L Chloride (98-107) mmol/L Carbon Dioxide (22-30) mmol/L Anion Gap mmol/L BUN (9-20) mg/dL Creatinine (0.66-1.25) mg/dL Est GFR (CKD-EPI)AfAm (>60 ml/min/1.73 sqM) Est GFR (CKD-EPI)NonAf (>60 ml/min/1.73 sqM) Glucose (74-99) mg/dL Plasma Lactic Acid [place] (0.7-2.0) mmol/L Calcium (8.4-10.2) mg/dL Total Bilirubin (0.2-1.3) mg/dL AST (17-59) U/L ALT (4-49) U/L Alkaline Phosphatase (38-126) U/L Troponin I (0.000-0.034) ng/mL Total Protein (6.3-8.2) g/dL Albumin (3.5-5.0) g/dL Lipase (23-300) U/L Urine Color Yellow Urine Appearance Clear (Clear) Urine pH 6.0 (5.0-8.0) Ur Specific [place] 1.031 (1.001-1.035) Urine Protein Trace H (Negative) Urine Glucose (UA) Negative (Negative) Urine Ketones 1+ H (Negative) Urine Blood Negative (Negative) Urine Nitrite Negative (Negative) Urine Bilirubin Negative (Negative) Urine Urobilinogen 2.0 (<2.0) mg/dL Ur Leukocyte Esterase Negative (Negative) Stool Occult Blood (Negative) Blood Type Blood Type Confirm A Negative Blood Type Recheck Bld Type Recheck Status Antibody Screen Spec Expiration Date - EKG Data EKG Comments: Sinus rhythm with no ST or T-wave changes. Ventricular rate 71, [place] 164, QRS 96, QTC 412. (Hector Becker) Disposition Is patient prescribed a controlled substance at d/c from ED?: No Time of Disposition: 14:16 <Hector Becker - Last Filed: 06/25/20 19:25> <Shelley Hernandez - Last Filed: 06/26/20 18:30> Clinical Impression: Abdominal pain, Diarrhea Disposition: HOME SELF-CARE Condition: Stable Instructions (If sedation given, give patient instructions): Abdominal Pain (ED) Additional Instructions: Return to emergency department if symptoms worsen. Follow up with a GI specialist Referrals: Cassie Evans MD [Primary Care Provider] - 1-2 days Madeline Stevens MD [STAFF PHYSICIAN] - 1-2 days
[2020-06-25] MEDS ORDERED: SODIUM CHLORIDE 0.9% 1,000 ML IV STA (11:46)
[2020-06-25] MEDS ORDERED: PANTOPRAZOLE 40 MG/10 ML VIAL IVP STA (11:55)
[2020-06-25 13:04] LABS: Appearance,Urine Clear (Clear); Bilirubin,Urine Negative (Negative); Blood,Urine Negative (Negative); Color,Urine Yellow; Glucose,Urine (UA) Negative (Negative); Ketones,Urine 1+ (Negative); Leukocyte Esterase,Urine Negative (Negative); Nitrite,Urine Negative (Negative); Protein,Urine Trace (Negative); Specific Gravity,Urine 1.031 (1.001-1.035)
[2020-06-25 13:16] LABS: ALT 18 U/L (4-49); AST 25 U/L (17-59); African American GFR (CKD) >90 (>60 ml/min/1.73 sqM); Albumin 3.8 g/dL (3.5-5.0); Alkaline Phosphatase 48 U/L (38-126); Anion Gap 5 mmol/L; Blood Urea Nitrogen 12 mg/dL (9-20); Carbon Dioxide 24 mmol/L (22-30); Chloride 110 mmol/L (98-107); Glucose 117 mg/dL (74-99); Non-African American GFR(CKD) >90 (>60 ml/min/1.73 sqM); Potassium 4.7 mmol/L (3.5-5.1); Sodium 139 mmol/L (137-145); Total Bilirubin 0.4 mg/dL (0.2-1.3); Total Protein 5.9 g/dL (6.3-8.2)
[2020-06-25 13:19] LABS: Basophils % (A) 1 %; Eosinophils # (A) 0.1 k/uL (0-0.7); Eosinophils % (A) 1 %; HCT 53.6 % (39.0-53.0); HGB 17.8 gm/dL (13.0-17.5); Lymphocytes % (A) 35 %; MCH 30.6 pg (25.0-35.0); MCHC 33.1 g/dL (31.0-37.0); MCV 92.3 fL (80.0-100.0); Mean Platelet Volume 10.1; Monocytes # (A) 0.4 k/uL (0-1.0); Monocytes % (A) 6 %; Neutrophils % (A) 55 %; Platelet Count 157 k/uL (150-450); RDW 12.7 % (11.5-15.5); WBC 5.5 k/uL (3.8-10.6)
[2020-06-25] MEDS ORDERED: MORPHINE SULFATE 4 MG/ML SYRINGE IVP STA (13:57)
--- NOTE | 2020-06-25 13:57 | CT ---
EXAMINATION TYPE: CT abdomen pelvis w con DATE OF EXAM: 06/25/2020 COMPARISON: 12/25/2016 HISTORY: Right sided abdominal and flank pain. CT DLP: 1126.1 mGycm CONTRAST: CT scan of the abdomen and pelvis is performed without Oral Contrast and with IV Contrast, patient in jected with 100 mL of Isovue 300. FINDINGS: LUNG BASES-: No visible nodule. No infiltrate. LIVER/GB: No calcified gallstones. There is evidence of mild hepatic steatosis. No space occupying hepatic lesion. Biliary tree is of normal caliber. PANCREAS: No inflammation. No distinct mass. SPLEEN: No splenic enlargement. No lesion seen. ADRENALS: No nodule. No thickening. KIDNEYS/BLADDER: No hydronephrosis. No nephrolithiasis. Stable cyst upper pole left kidney. Urinary bladder grossly unremarkable. BOWEL: Normal appendix. Normal bowel caliber. No inflammation. GENITAL ORGANS: No gross abnormality. LYMPH NODES: No greater than 1cm abdominal or pelvic lymph nodes are appreciated. AORTA: No significant abnormality. OSSEOUS STRUCTURES: Severe degenerative change L5-S1. OTHER: No significant additional abnormality is seen. IMPRESSION: 1. No acute process identified to account for the patient's symptoms. Correlate clinically.
[2020-06-25 14:33] VITALS: BP 113/65; PULSE 60; TEMP 98.4
== END 2020-06-25 14:33 | disposition home or self-care (01) ==
LOC: EC 11:26
DX: R10.31 Right lower quadrant pain (principal); R10.11 Right upper quadrant pain; R19.7 Diarrhea, unspecified; K58.9 Irritable bowel syndrome, unspecified; K21.9 Gastro-esophageal reflux disease without esophagitis; E78.5 Hyperlipidemia, unspecified; M19.90 Unspecified osteoarthritis, unspecified site; G40.909 Epilepsy, unspecified, not intractable, without status epilepticus; G89.29 Other chronic pain; M54.9 Dorsalgia, unspecified; G62.9 Polyneuropathy, unspecified; F17.200 Nicotine dependence, unspecified, uncomplicated; Z79.82 Long term (current) use of aspirin; Z79.899 Other long term (current) drug therapy
CPT/HCPCS: 36415; 93005; 86900; 86901; 80053; 83605; 83690; 84484; 85025; 86850; 82272; 81003; 74177; 96361; 99284; 96374; 96375; J2270; C9113; Q9967

== ENCOUNTER 2023-11-15 08:17 | Emergency (ER) | payer MEDICARE, OTHER ==
[2023-11-15 08:40] VITALS: TEMP 98.5
--- NOTE | 2023-11-15 09:00 | ED ---
General Adult HPI - General Chief complaint: Abdominal Pain Stated complaint: Abd Pain Time Seen by Provider: 11/15/23 08:18 Source: patient, RN notes reviewed, old records reviewed Mode of arrival: EMS Limitations: no limitations - History of Present Illness Initial comments: 48-year-old male presents for evaluation of constipation. Patient states he has not had a normal bowel movement in the past 2 weeks. He does have history of chronic pain and is on morphine. He also has history of urinary retention and has a chronic indwelling Cosby catheter. He denies vomiting. Denies fever. He does report some abdominal discomfort without significant pain. - Related Data Home Medications Medication Instructions Recorded Confirmed Divalproex Sodium [Depakote] 1,000 mg PO HS 03/20/17 06/25/20 Tamsulosin HCl [Flomax] 0.4 mg PO DAILY 05/22/17 06/25/20 Divalproex Sodium [Depakote] 500 mg PO QAM 05/06/19 06/25/20 Aspirin EC [Ecotrin Low Dose] 81 mg PO DAILY 06/03/19 06/25/20 diazePAM [Valium] 10 mg PO Q8H PRN 06/03/19 06/25/20 methocarbamoL [Robaxin-750] 750 mg PO Q8H PRN 06/03/19 06/25/20 Venlafaxine HCl [Effexor] 75 mg PO QAM 12/04/19 06/25/20 Dicyclomine [Bentyl] 20 mg PO QID 06/25/20 06/25/20 Lansoprazole [Prevacid] 15 mg PO DAILY 06/25/20 06/25/20 oxyCODONE HCL/ACETAMINOPHEN 1 tab PO TID PRN 06/25/20 06/25/20 [Percocet 10-325 mg] Previous Rx's Medication Instructions Recorded Simvastatin [Zocor] 40 mg PO HS 30 Days tab 10/21/16 Allergies Allergy/AdvReac Type Severity Reaction Status Date / Time No Known Allergies Allergy Verified 07/24/23 17:34 Review of Systems ROS Statement: Those systems with pertinent positive or pertinent negative responses have been documented in the HPI. ROS Other: All systems not noted in ROS Statement are negative. Past Medical History Past Medical History: GERD/Reflux, Hyperlipidemia, Osteoarthritis (OA), Seizure Disorder, Sleep Apnea/CPAP/BIPAP Additional Past Medical History / Comment(s): steroid injection to back 2-13-20,Chronic back pain, herniated disc, kidney stone, LAST SEIZURE 05/06/2019,no cpap, neuropathy arms and legs History of Any Multi-Drug Resistant Organisms: None Reported Past Surgical History: Hernia Repair, Orthopedic Surgery Additional Past Surgical History / Comment(s): Cervical fusion 2009, sh[place] carpel tunnel, left knee arthroscopic surgery, polyp removal, hemorrhoid surgery, rectal warts, sinus surgery, PAIN CLINIC PROCEDURES. Nov 2018, lumbar fusion,hernia surg x2, Past Anesthesia/Blood Transfusion Reactions: No Reported Reaction Past Psychological History: Anxiety, Depression Smoking Status: Former smoker Past Alcohol Use History: None Reported Past Drug Use History: None Reported - Past Family History Mother Family Medical History: Hyperlipidemia, Hypertension, Osteoarthritis (OA) Additional Family Medical History / Comment(s): Mom is alive at 70 years of age Father Family Medical History: Cancer, Liver Disease Additional Family Medical History / Comment(s): Dad at age 60 from liver cancer, hepatitis C, cirrhosis. Sister(s) Family Medical History: Cancer Additional Family Medical History / Comment(s): breast Daughter(s) Family Medical History: No Reported History Son(s) Family Medical History: No Reported History Additional Family Medical History / Comment(s): Patient states he has 4 sisters that are healthy. General Exam Limitations: no limitations General appearance: alert, in no apparent distress Head exam: Present: atraumatic, normocephalic Eye exam: Present: normal appearance, PERRL ENT exam: Present: mucous membranes moist Neck exam: Present: normal inspection. Absent: tenderness Respiratory exam: Present: normal lung sounds bilaterally. Absent: respiratory distress, wheezes Cardiovascular Exam: Present: regular rate, normal rhythm GI/Abdominal exam: Present: soft, distended. Absent: tenderness, guarding, rebound Neurological exam: Present: alert, oriented X3 Psychiatric exam: Present: normal affect, normal mood Course Vital Signs 11/15/23 11/15/23 11/15/23 08:30 08:35 11:50 Temperature 98.5 F Pulse Rate 70 68 68 Respiratory 20 16 16 Rate Blood Pressure 125/74 130/68 140/86 O2 Sat by Pulse 95 98 98 Oximetry - Reevaluation(s) Reevaluation #1: 11/15/23 10:25 Patient given enema in the emergency department with significant stool output. Medical Decision Making - Medical Decision Making Was pt. sent in by a medical professional or institution (, [facility], [facility], urgent care, hospital, or [place] health care facility...) When possible be specific @ -No Did you speak to anyone other than the patient for history (EMS, parent, family, police, friend...)? What history was obtained from this source @ -No Did you review nursing and triage notes (agree or disagree)? Why? @ -I reviewed and agree with nursing and triage notes Were old charts reviewed (outside hosp., previous admission, EMS record, old EKG, old radiological studies, urgent care reports/EKG's, [place] health care facility records)? Report findings @ -No old charts were reviewed Differential Diagnosis (chest pain, altered mental status, abdominal pain women, abdominal pain men, vaginal bleeding, weakness, fever, dyspnea, syncope, headache, dizziness, GI bleed, back pain, seizure, CVA, palpatations, mental health, musculoskeletal)? @Differential Abdominal Pain Men: Appendicitis, cholecystitis, diverticulosis, ischemic bowel, pancreatitis, hepatitis, UTI, gastroenteritis, AAA, incarcerated hernia, bowel obstruction, constipation, inflammatory bowel, hepatitis, peptic ulcer disease, splenic infarction, perforated viscus, testicular torsion, this is not meant to be an all-inclusive list EKG interpreted by me (3pts min.). @ -As above X-rays interpreted by me (1pt min.). @KUB shows mild small bowel distention with stool throughout the left hemicolon and rectum. CT interpreted by me (1pt min.). @ -None done U/S interpreted by me (1pt. min.). @ -None done What testing was considered but not performed or refused? (CT, X-rays, U/S, labs)? Why? @ -None What meds were considered but not given or refused? Why? @ -None Did you discuss the management of the patient with other professionals (professionals i.e. [facility] Dominguez, [facility], lab, RT, psych nurse, adoption social worker, blood bank laboratory technician, teacher, ambulance officer, nurse case manager)? Give summary @ -No Was smoking cessation discussed for >3mins.? @ -No Was critical care preformed (if so, how long)? @ -No Were there social determinants of health that impacted care today? How? (Homelessness, low income, unemployed, alcoholism, drug addiction, transportation, low edu. Level, literacy, decrease access to med. care, fci, rehab)? @ -No Was there de-escalation of care discussed even if they declined (Discuss DNR or withdrawal of care, Hospice)? DNR status @ -No What co-morbidities impacted this encounter? (DM, HTN, Smoking, COPD, CAD, Cancer, CVA, ARF, Chemo, Hep., AIDS, mental health diagnosis, sleep apnea, morbid obesity)? @ -[Chronic pain on opiates Was patient admitted / discharged? Hospital course, mention meds given and route, prescriptions, significant lab abnormalities, going to OR and other pertinent info. @ -48-year-old male with decrease stool output over the past 2 weeks. Patient has no significant tenderness on exam, no rebound, mild distention. Stable vitals. Afebrile. X-ray does show stool burden in the left colon with very mild the dilated small bowel loops. He had no vomiting. Patient given an enema in the emergency department with significant stool output. Undiagnosed new problem with uncertain prognosis? @ -[No Drug Therapy requiring intensive monitoring for toxicity (Heparin, Nitro, In sulin, Cardizem)? @ -No Were any procedures done? @ -No Diagnosis/symptom? @ -[Constipation Acute, or Chronic, or Acute on Chronic? @ -Acute Uncomplicated (without systemic symptoms) or Complicated (systemic symptoms)? @ -[default Side effects of treatment? @ -No Exacerbation, Progression, or Severe Exacerbation? @ -No Poses a threat to life or bodily function? How? (Chest pain, [place], [place], pneumonia, PE, COPD, DKA, ARF, appy, cholecystitis, CVA, Diverticulitis, Homicidal, Suicidal, threat to staff... and all critical care pts) @ -No Disposition Clinical Impression: Constipation, Abdominal pain Disposition: HOME SELF-CARE Condition: Fair Instructions (If sedation given, give patient instructions): Constipation (ED), Abdominal Pain (ED) Is patient prescribed a controlled substance at d/c from ED?: No Referrals: Venecia Ness DO [Primary Care Provider] - 1-2 days Time of Disposition: 10:27
--- NOTE | 2023-11-15 09:08 | XR ---
EXAMINATION TYPE: XR KUB DATE OF EXAM: 11/15/2023 COMPARISON: 05/06/2019 HISTORY: Lack of bowel movement TECHNIQUE: One view abdominal series FINDINGS: The osseous structures are intact. The bowel gas pattern is nonspecific. Air-fluid levels in dilated bowel loops are seen and there is air and fecal debris within the colon. Mild arthropathy of the hip s. Vascular calcification seen. Postsurgical change lumbosacral junction. There appears to be a metal lic lead overlying the lower thoracic spine. IMPRESSION: 1. Multiple dilated small bowel loops with air-fluid level could be on the basis of a partial obstruc tion or ileus. There is a moderate amount of debris within the left colon.
[2023-11-15 09:12] VITALS: PULSE 68; RESP 16
[2023-11-15] MEDS: MAGNESIUM CITRATE 296 ML BOTTLE PO ONE (11:45)
[2023-11-15 12:14] VITALS: BP 140/86
== END 2023-11-15 11:51 | disposition home or self-care (01) ==
LOC: EC 08:17
DX: K59.00 Constipation, unspecified (principal); E78.5 Hyperlipidemia, unspecified; G47.30 Sleep apnea, unspecified; K21.9 Gastro-esophageal reflux disease without esophagitis; M19.90 Unspecified osteoarthritis, unspecified site; F41.9 Anxiety disorder, unspecified; F32.A Depression, unspecified; Z79.899 Other long term (current) drug therapy; Z79.82 Long term (current) use of aspirin; Z87.891 Personal history of nicotine dependence
CPT/HCPCS: 74018; 99284